=== PATIENT | female | born 1965 | race African-American/Black ===

== ENCOUNTER 2018-07-23 15:36 | Emergency (ER) | payer OTHER, BC ==
[~2018-07-23] VITALS: Ht 165.1 cm; Wt 108.9 kg
[2018-07-23] MEDS ORDERED: LOSA1TAB15 PO (16:04)
[2018-07-23] MEDS ORDERED: HYDR-3857 PO (16:04)
[2018-07-23] MEDS ORDERED: ESOM20SU PO (16:04)
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
[2018-07-23 17:42] VITALS: BP 168/90
--- OUTSIDE RECORDS SUMMARY | 2018-07-23 18:41 | XMS REPORT ---
Author Author DANNY PARMAR [facility] Address [address] [place] [address] Care Team Providers Care Senior Insight Manager Name Role Phone DANNY PARMAR Unavailable PROBLEMS Type Condition ICD9-CM Code [id number] Code Onset Dates Condition Status SNOMED Code Problem Essential hypertension I10 Active 53470103 Problem Sinusitis chronic, frontal J32.1 Active 85669757 Problem Dorsalgia, unspecified M54.9 Active 313261856 Problem Obesity (BMI 30-39.9) E66.9 Active 444000534 Problem Other chronic pain G89.29 Active 12842611 ALLERGIES No Information ENCOUNTERS Encounter Location Date Diagnosis [facility] [address] [id number] [place] [address] 28 May [facility] [address] [id number] [place] [address] 27 May [facility] [address] [id number] [place] [address] 14 May [facility] [address] [id number] [place] [address] Apr [facility] [address] [id number] [place] [address] Apr Essential hypertension I10 and Weight gain R63.5 [facility] [address] [id number] [place] [address] Apr Overuse syndrome T14.8XXA [facility] [address] [id number] [place] [address] Mar [facility] [address] [id number] [place] [address] Nov Acute non-recurrent maxillary sinusitis J01.00 [facility] [address] [id number] [place] [address] Sep [facility] [address] [id number] [place] [address] Sep Pain of right lower extremity M79.604 ; Obesity (BMI 30-39.9) E66.9 ; Other chronic pain G89.29 and Dorsalgia, unspecified M54.9 IMMUNIZATIONS No Known Immunizations SOCIAL HISTORY Never Assessed REASON FOR VISIT refill on losartan PLAN OF CARE VITAL SIGNS MEDICATIONS Medication Instructions Dosage Frequency Start Date End Date Duration Status Hyzaar 50-12.5 MG Orally Once a day 1 tablet 24h 30 days Active RESULTS No Results PROCEDURES No Known procedures INSTRUCTIONS MEDICATIONS ADMINISTERED No Known Medications MEDICAL (GENERAL) HISTORY Type Description Date Medical History hypertension Medical History Acid reflux Surgical History hysterectomy 2002 Surgical History back surgery 2003 Surgical History cholecystecomy 2003 Hospitalization History back surgeries Hospitalization History childbirth
--- OUTSIDE RECORDS SUMMARY | 2018-07-23 18:41 | XMS REPORT ---
Author Author DANNY PARMAR [facility] Address [address] [place] [address] Care Team Providers Care Pesticide Chemist Name Role Phone DANNY PARMAR Unavailable PROBLEMS Type Condition ICD9-CM Code VTQ60-CY Code Onset Dates Condition Status SNOMED Code Problem Essential hypertension I10 Active 17783879 Problem Sinusitis chronic, frontal J32.1 Active 69490803 Problem Dorsalgia, unspecified M54.9 Active 595484399 Problem Obesity (BMI 30-39.9) E66.9 Active 391042509 Problem Other chronic pain G89.29 Active 39120345 ALLERGIES No Information ENCOUNTERS Encounter Location Date Diagnosis [facility] [address] [id number] [place] [address] 28 May [facility] [address] [id number] [place] [address] 27 May [facility] [address] [id number] [place] [address] 14 May [facility] [address] [id number] [place] [address] Apr [facility] [address] [id number] [place] [address] Apr Essential hypertension I10 and Weight gain R63.5 [facility] [address] [id number] [place] [address] Apr Overuse syndrome T14.8XXA [facility] [address] [id number] [place] [address] Mar [facility] [address] [id number] [place] [address] Nov Acute non-recurrent maxillary sinusitis J01.00 [facility] [address] [id number] [place] [address] Sep [facility] [address] [id number] [place] [address] Sep Pain of right lower extremity M79.604 ; Obesity (BMI 30-39.9) E66.9 ; Other chronic pain G89.29 and Dorsalgia, unspecified M54.9 IMMUNIZATIONS No Known Immunizations SOCIAL HISTORY Never Assessed REASON FOR VISIT need medicine PLAN OF CARE VITAL SIGNS MEDICATIONS Medication [...]
--- OUTSIDE RECORDS SUMMARY | 2018-07-23 18:41 | XMS REPORT ---
Author Author [facility]ERTRUDE HADLEY [facility] Address [address] [place] [address] Care Team Providers Care Consultant Teacher Name Role Phone GERTRUDE HADLEY Unavailable PROBLEMS Type Condition ICD9-CM Code CON96-JN Code Onset Dates Condition Status SNOMED Code Problem Essential hypertension I10 Active 67390105 Problem Sinusitis chronic, frontal J32.1 Active 06922131 Problem Dorsalgia, unspecified M54.9 Active 846493998 Problem Obesity (BMI 30-39.9) E66.9 Active 330120031 Problem Other chronic pain G89.29 Active 75940552 ALLERGIES No Known Allergies ENCOUNTERS Encounter Location Date Diagnosis [facility] [address] [id number] [place] [address] May [facility] [address] [id number] [place] [address] Apr [facility] [address] [id number] [place] [address] Apr Essential hypertension I10 and Weight gain R63.5 [facility] [address] [id number] [place] [address] Apr Overuse syndrome T14.8XXA [facility] [address] [id number] [place] [address] Mar [facility] [address] [id number] [place] [address] Nov Acute non-recurrent maxillary sinusitis J01.00 [facility] [address] [id number] [place] [address] Sep [facility] [place] [address] [id number] [place] [address] Sep Pain of right lower extremity M79.604 ; Obesity (BMI 30-39.9) E66.9 ; Other chronic pain G89.29 and Dorsalgia, unspecified M54.9 IMMUNIZATIONS No Known Immunizations SOCIAL HISTORY Never Assessed REASON FOR VISIT Leg pain, Pt having Lt leg pain., Pt having pain Rt leg as well, with swelling. ERIKA Fournier, Pt rate pain 8. ERIKA Fournier PLAN OF CARE Activity Details Follow Up prn Reason: Pending Test CMP VITAL SIGNS Height 65 in 2018-05-12 Weight 223.4 lbs 2018-05-12 Temperature 98.1 degrees Fahrenheit 2018-05-12 Heart Rate 70 bpm 2018-05-12 Respiratory Rate 18 2018-05-12 Oximetry 97 % 2018-05-12 BMI 37.17 kg/m2 2018-05-12 Blood pressure systolic 124 mmHg 2018-05-12 Blood pressure diastolic 84 mmHg 2018-05-12 MEDICATIONS Medication Instructions Dosage Frequency Start Date End Date Duration Status Nexium 40 MG Orally Once a day 1 capsule 24h Active Diclofenac Sodium 75 MG Orally Twice a day 1 tablet with food or milk 12h 18 Apr, 2018 May, 30 day(s) Active Hyzaar 50-12.5 MG Orally Once a day 1 tablet 24h Active Hydrocodone-Acetaminophen 10-500 MG Orally PRN 1 tablet as needed Active RESULTS No Results PROCEDURES Procedure Date Ordered Result Body Site COMPREHEN METABOLIC PANEL May 12, 2018 INSTRUCTIONS MEDICATIONS ADMINISTERED No Known Medications MEDICAL (GENERAL) HISTORY Type Description Date Medical History hypertension Medical History Acid reflux Surgical History hysterectomy 2002 Surgical History back surgery 2003 Surgical History cholecystecomy 2004 Hospitalization History back surgeries Hospitalization History childbirth
--- OUTSIDE RECORDS SUMMARY | 2018-07-23 18:41 | XMS REPORT ---
Author Author [facility]ANNY PARMAR [facility] Address [address] [place] [address] Care Team Providers Care Fuel Cell Repairer Name Role Phone DANNY PARMAR Unavailable PROBLEMS Type Condition ICD9-CM Code VJT45-DC Code Onset Dates Condition Status SNOMED Code Problem Essential hypertension I10 Active 93288880 Problem Sinusitis chronic, frontal J32.1 Active 49926419 Problem Dorsalgia, unspecified M54.9 Active 749128271 Problem Obesity (BMI 30-39.9) E66.9 Active 949906026 Problem Other chronic pain G89.29 Active 72272641 ALLERGIES No Information ENCOUNTERS Encounter Location Date Diagnosis [employer] [address] [id number] [place] [address] 28 May [facility] [address] [id number] [place] [address] 27 May [facility] [address] [id number] [place] [address] 14 May [facility] [address] [id number] [place] [address] Apr [facility] [address] [id number] [place] [address] Apr Essential hypertension I10 and Weight gain R63.5 [facility] [address] [id number] [place] [address] Apr Overuse syndrome T14.8XXA [facility] [address] [id number] [place] [address] Mar [facility] [address] [id number] [place] [address] Nov Acute non-recurrent maxillary sinusitis J01.00 [facility] [address] [id number] [place] [address] Sep [facility] [address] [id number] [place] [address] Sep Pain of right lower extremity M79.604 ; Obesity (BMI 30-39.9) E66.9 ; Other chronic pain G89.29 and Dorsalgia, unspecified M54.9 IMMUNIZATIONS No Known Immunizations SOCIAL HISTORY Never Assessed REASON FOR VISIT refill request PLAN OF CARE VITAL SIGNS MEDICATIONS Unknown Medications RESULTS No Results PROCEDURES No Known procedures INSTRUCTIONS MEDICATIONS ADMINISTERED No Known Medications MEDICAL (GENERAL) HISTORY Type Description Date Medical History hypertension Medical History Acid reflux Surgical History hysterectomy 2002 Surgical History back surgery 2003 Surgical History cholecystecomy 2003 Hospitalization History back surgeries Hospitalization History childbirth
--- OUTSIDE RECORDS SUMMARY | 2018-07-23 18:41 | XMS REPORT | CCD ---
Author Author MAICOL GARCÍA Organization Unknown Address [address] [place] [id number] Care Team Providers Care Area Representative Name Role Phone SIRIA HENNESSY MD Vital Signs Vital Sign Value Unit Date/Time Recent/Initial? Weight Measured 230 lbs 02/11/2016 09:50 Initial VS Height 65 in 02/11/2016 09:50 Initial VS BMI (Body Mass Index) 38.27 kg/m^2 02/11/2016 09:50 Initial VS BSA (Body Surface Area) 2.19 m^2 02/11/2016 09:50 Initial VS Allergies Allergy Code Allergy Type Reaction Status CODEINE 2670 Drug allergy HIVES Active Procedures Procedure Code Procedure Type Date Colorectal cancer screening; colonoscopy on individual not meeting criteri G0121 CPT 02/12/2016 History of Immunizations Unknown or Not Available. Problems Unknown or Not Available. Results Unknown or Not Available. Active Medications No Active Medications Medications Administered During Visit Unknown or Not Available. Encounters Encounter Diagnosis Diagnosis Code Start Date Encounter for screening for malignant neoplasm of colon Z1211 Social History Smoking Status Code Start Date End Date Never smoker [id number] Patient Decision Aids Patient Decision Aid EGD AND/OR COLONOSCOPY; AFTER THE PROCEDURE Discharge Instructions You were admitted to [facility] on 02/12/2016 08:01 with a principal diagnosis of Encounter for screening for malignant neoplasm of colon You had the following procedures done: Colorectal cancer screening; colonoscopy on individual not meeting criteri You were discharged from [facility] on 02/12/2016 10:09 Should you have any questions prior to discharge, please contact a member of your healthcare team. If you have left the hospital and have any questions, please contact your primary care physician. Chief Complaint and Reason For Visit Chief Complaint Date of Onset COLONOSCOPY Function Status Unknown or Not Available. Plan of Care Unknown or Not Available. Referral/Transition of Care Unknown or Not Available.
--- OUTSIDE RECORDS SUMMARY | 2018-07-23 18:41 | XMS REPORT ---
Author Author DANNY PARMAR [facility] Address [address] [place] [address] Care Team Providers Care Supervisor Vendor Quality Name Role Phone DANNY PARMAR Unavailable PROBLEMS Type Condition ICD9-CM Code [id number] Code Onset Dates Condition Status SNOMED Code Problem Sinusitis chronic, frontal J32.1 Active 83339776 Problem Other chronic pain G89.29 Active 64815197 Problem Dorsalgia, unspecified M54.9 Active 501182112 Problem Obesity (BMI 30-39.9) E66.9 Active 627910965 ALLERGIES No Known Allergies ENCOUNTERS Encounter Location Date [facility] [id number] [place] [address] Mar [place] [address] [id number] [place] [address] Nov Acute non-recurrent maxillary sinusitis J01.00 [place] [address] [id number] [place] [address] Sep [facility] [address] [id number] [place] [address] Sep Pain of right lower extremity M79.604 ; Obesity (BMI 30-39.9) E66.9 ; Other chronic pain G89.29 and Dorsalgia, unspecified M54.9 IMMUNIZATIONS No Known Immunizations SOCIAL HISTORY Never Assessed REASON FOR VISIT Cough, Pt has a cough, face pain, Lt eye swollen, headache, Lt ear pain, ERIKA Fournier PLAN OF CARE Activity Details Follow Up prn Reason: VITAL SIGNS Height 65 in 2017-12-20 Weight 232.3 lbs 2017-12-20 Temperature 96.1 degrees Fahrenheit 2017-12-20 Heart Rate 80 bpm 2017-12-20 Respiratory Rate 18 2017-12-20 Oximetry 98 % 2017-12-20 BMI 38.65 kg/m2 2017-12-20 Blood pressure systolic 112 mmHg 2017-12-20 Blood pressure diastolic 76 mmHg 2017-12-20 MEDICATIONS Medication Instructions Dosage Frequency Start Date End Date Duration Status Promethazine-Codeine 6.25-10 MG/5ML Orally every 6 hrs 5 ml as needed 6h Nov, Dec, 05 days Active Nexium 40 MG Orally Once a day 1 capsule 24h Active PredniSONE 20 mg Orally Once a day 2 tablets 24h Nov, Dec, 05 days Active Augmentin 875-125 MG Orally every 12 hrs 1 tablet 12h Nov, Dec, 10 day(s) Active Hydrocodone-Acetaminophen 10-500 MG Orally PRN 1 tablet as needed Active Hyzaar 50-12.5 MG Orally Once a day 1 tablet 24h Active RESULTS No Results PROCEDURES No Known procedures INSTRUCTIONS MEDICATIONS ADMINISTERED No Known Medications MEDICAL (GENERAL) HISTORY Type Description Date Medical History hypertension Medical History Acid reflux Surgical History hysterectomy 2002 Surgical History back surgery 2003 Surgical History cholecystecomy 2003 Hospitalization History back surgeries Hospitalization History childbirth
--- OUTSIDE RECORDS SUMMARY | 2018-07-23 18:41 | XMS REPORT ---
Author Author BLANCA KIDD [facility] Address [address] [place] [address] Care Team Providers Care Court Advocate Name Role Phone MARTI BLACNA Unavailable PROBLEMS Type Condition ICD9-CM Code FRD67-EC Code Onset Dates Condition Status SNOMED Code Problem Sinusitis chronic, frontal J32.1 Active 33802133 Problem Other chronic pain G89.29 Active 69279522 Problem Dorsalgia, unspecified M54.9 Active 347764648 Problem Obesity (BMI 30-39.9) E66.9 Active 142585240 ALLERGIES No Known Allergies ENCOUNTERS Encounter Location Date [id number] [place] [address] Nov Acute non-recurrent maxillary sinusitis J01.00 [facility] [address] [id number] [place] [address] Sep [facility] [address] [id number] [place] [address] Sep Pain of right lower extremity M79.604 ; Obesity (BMI 30-39.9) E66.9 ; Other chronic pain G89.29 and Dorsalgia, unspecified M54.9 IMMUNIZATIONS No Known Immunizations SOCIAL HISTORY Never Assessed REASON FOR VISIT Leg pain behind R knee x 2 weeks w/ no known cause. liliana RN PLAN OF CARE Activity Details Follow Up prn Reason: VITAL SIGNS Height 65 in 2017-10-10 Weight 238.9 lbs 2017-10-10 Temperature 97.3 degrees Fahrenheit 2017-10-10 Heart Rate 68 bpm 2017-10-10 Respiratory Rate 18 2017-10-10 BMI 39.75 kg/m2 2017-10-10 Blood pressure systolic 118 mmHg 2017-10-10 Blood pressure diastolic 78 mmHg 2017-10-10 MEDICATIONS Medication Instructions Dosage Frequency Start Date End Date Duration Status Hydrocodone-Acetaminophen 10-500 MG Active Nexium 40 MG Orally Once a day 1 capsule 24h Active Hyzaar 50-12.5 MG Orally Once a day 1 tablet 24h Active RESULTS Name Result Date Reference Range Ultrasound : Lower Extremity PROCEDURES No Known procedures INSTRUCTIONS MEDICATIONS ADMINISTERED No Known Medications MEDICAL (GENERAL) HISTORY Type Description Date Medical History hypertension Medical History Acid reflux Surgical History hysterectomy 2002 Surgical History back surgery 2003 Surgical History cholecystecomy 2003 Hospitalization History back surgeries Hospitalization History childbirth
--- OUTSIDE RECORDS SUMMARY | 2018-07-23 18:41 | XMS REPORT ---
Author [facility] Address [address] [place] [address] Care Team Providers Care Senior Web Analyst Name Role Phone DANNY PARMAR Unavailable PROBLEMS Type Condition ICD9-CM Code NHP69-CU Code Onset Dates Condition Status SNOMED Code Problem Essential hypertension I10 Active 33254299 Problem Sinusitis chronic, frontal J32.1 Active 11976865 Problem Dorsalgia, unspecified M54.9 Active 479740869 Problem Obesity (BMI 30-39.9) E66.9 Active 285201347 Problem Other chronic pain G89.29 Active 87518864 ALLERGIES No Known Allergies ENCOUNTERS Encounter Location Date Diagnosis [employer] [address] [id number] [place] [address] May [facility] [address] [id number] [place] [address] [facility] [address] [id number] [place] [address] Apr [facility] [address] [id number] [place] [address] Apr Essential hypertension I10 and Weight gain R63.5 [facility] [address] [id number] [place] [address] Apr Overuse syndrome T14.8XXA [facility] [address] [id number] [place] [address] Mar [facility] [address] [id number] [place] [address] Nov Acute non-recurrent maxillary sinusitis J01.00 [facility] [address] [id number] [place] [address] Sep [facility] [address] [id number] [place] [address] Sep Pain of right lower extremity M79.604 ; Obesity (BMI 30-39.9) E66.9 ; Other chronic pain G89.29 and Dorsalgia, unspecified M54.9 IMMUNIZATIONS No Known Immunizations SOCIAL HISTORY Never Assessed REASON FOR VISIT Establish Care, Pt want to discuss weight loss, and possible physical. , AMADO complete. ERIKA Fournier PLAN OF CARE Activity Details Follow Up 4 Weeks Reason:f/u weight mgmt VITAL SIGNS Height 65 in 2018-05-15 Weight 235 lbs 2018-05-15 Temperature 97.8 degrees Fahrenheit 2018-05-15 Heart Rate 79 bpm 2018-05-15 Respiratory Rate 18 2018-05-15 Oximetry 98 % 2018-05-15 BMI 39.10 kg/m2 2018-05-15 Blood pressure systolic 124 mmHg 2018-05-15 Blood pressure diastolic 86 mmHg 2018-05-15 MEDICATIONS Medication Instructions Dosage Frequency Start Date End Date Duration Status Hyzaar 50-12.5 MG Orally Once a day 1 tablet 24h Active Diclofenac Sodium 75 MG Orally Twice a day 1 tablet with food or milk 12h 18 Apr, 2018 17 May, 2018 30 day(s) Active Nexium 40 MG Orally Once a day 1 capsule 24h Active RESULTS No Results PROCEDURES No Known procedures INSTRUCTIONS MEDICATIONS ADMINISTERED No Known Medications MEDICAL (GENERAL) HISTORY Type Description Date Medical History hypertension Medical History Acid reflux Surgical History hysterectomy 2002 Surgical History back surgery 2003 Surgical History cholecystecomy 2004 Hospitalization History back surgeries Hospitalization History childbirth
--- OUTSIDE RECORDS SUMMARY | 2018-07-23 18:41 | XMS REPORT ---
Author Author [facility] Address [address] [place] [address] Care Team Providers Care Clerical Supervisor Name Role Phone DANNY PARMAR Unavailable PROBLEMS Type Condition ICD9-CM Code COO49-[id number] Code Onset Dates Condition Status SNOMED Code Problem Essential hypertension I10 Active 02237079 Problem Sinusitis chronic, frontal J32.1 Active 80771929 Problem Dorsalgia, unspecified M54.9 Active 745108051 Problem Obesity (BMI 30-39.9) E66.9 Active 069059302 Problem Other chronic pain G89.29 Active 04764874 ALLERGIES No Information ENCOUNTERS Encounter Location Date Diagnosis [facility] [address] [id number] [place] [address] May [facility] [address] [id number] [place] [address] Apr [facility] [address] [id number] [place] [address] Apr Essential hypertension I10 and Weight gain R63.5 [facility] [address] [id number] [place] [address] Apr Overuse syndrome T14.8XXA [facility] [address] [id number] [place] [address] Mar [facility] [address] [id number] [place] [address] Nov Acute non-recurrent maxillary sinusitis J01.00 [facility] [address] [id number] [place] [address] Sep [facility] [address] [id number] [place] [address] Sep Pain of right lower extremity M79.604 ; Obesity (BMI 30-39.9) E66.9 ; Other chronic pain G89.29 and Dorsalgia, unspecified M54.9 IMMUNIZATIONS No Known Immunizations SOCIAL HISTORY Never Assessed REASON FOR VISIT Test results PLAN OF CARE VITAL SIGNS MEDICATIONS Unknown Medications RESULTS No Results PROCEDURES No Known procedures INSTRUCTIONS MEDICATIONS ADMINISTERED No Known Medications MEDICAL (GENERAL) HISTORY Type Description Date Medical History hypertension Medical History Acid reflux Surgical History hysterectomy 2002 Surgical History back surgery 2003 Surgical History cholecystecomy 2003 Hospitalization History back surgeries Hospitalization History childbirth
--- OUTSIDE RECORDS SUMMARY | 2018-07-23 18:41 | XMS REPORT ---
Author [facility] Address [address] [place] [address] Care Team Providers Care Geoduck Diver Name Role Phone DANNY PARMAR Unavailable PROBLEMS Type Condition ICD9-CM Code FTN65-CA Code Onset Dates Condition Status SNOMED Code Problem Essential hypertension I10 Active 18303013 Problem Sinusitis chronic, frontal J32.1 Active 89730893 Problem Dorsalgia, unspecified M54.9 Active 617976875 Problem Obesity (BMI 30-39.9) E66.9 Active 789906408 Problem Other chronic pain G89.29 Active 18153381 ALLERGIES No Information ENCOUNTERS Encounter Location Date Diagnosis [employer] [address] [id number] [place] [address] Apr [facility] [address] [id number] [place] [address] Apr Essential hypertension I10 and Weight gain R63.5 [facility] [address] [id number] [place] [address] Apr Overuse syndrome T14.8XXA [facility] [address] [id number] [place] [address] Mar [facility] [address] [id number] [place] [address] Nov Acute non-recurrent maxillary sinusitis J01.00 [facility] [address] [id number] [place] [address] Sep [facility] [employer] [address] [id number] [place] [address] Sep Pain of right lower extremity M79.604 ; Obesity (BMI 30-39.9) E66.9 ; Other chronic pain G89.29 and Dorsalgia, unspecified M54.9 IMMUNIZATIONS No Known Immunizations SOCIAL HISTORY Never Assessed REASON FOR VISIT Phone Triage PLAN OF CARE VITAL SIGNS MEDICATIONS Unknown Medications RESULTS No Results PROCEDURES No Known procedures INSTRUCTIONS MEDICATIONS ADMINISTERED No Known Medications MEDICAL (GENERAL) HISTORY Type Description Date Medical History hypertension Medical History Acid reflux Surgical History hysterectomy 2002 Surgical History back surgery 2003 Surgical History cholecystecomy 2003 Hospitalization History back surgeries Hospitalization History childbirth
--- OUTSIDE RECORDS SUMMARY | 2018-07-23 18:43 | XMS REPORT ---
Author Author Adriana Harris [facility] Address [address] [place] [id number] Care Team Providers Care Claim Analyst Name Role Phone Adriana Harris PCP Unavailable Allergies and Adverse Reactions Name Reaction Notes lisinopril cough Plan of Treatment Planned Activity Comments Planned Date Planned Time Plan/Goal COMPLETE CBC W/AUTO DIFF WBC 01/07/2016 12:00 AM COMPREHEN METABOLIC PANEL 12/06/2012 12:00 AM LIPID PANEL 12/06/2012 12:00 AM GLYCOSYLATED HEMOGLOBIN TEST 12/06/2012 12:00 AM COMPLETE CBC W/AUTO DIFF WBC 12/06/2012 12:00 AM COMPREHEN METABOLIC PANEL 10/14/2014 12:00 AM LIPID PANEL 10/14/2014 12:00 AM Medications Active Name Start Date Estimated Completion Date SIG Comments Nexium 40 mg oral capsule,delayed release(DR/EC) 01/05/2015 take 1 capsule (40 mg) by oral route 2 times per day cyclobenzaprine 10 mg oral tablet 01/05/2015 Take one tablet at bedtime as needed diclofenac sodium 75 mg oral tablet,delayed release (DR/EC) 01/05/2015 take 1 tablet (75 mg) by oral route 2 times per day Benicar HCT 20-12.5 mg oral tablet 12/14/2015 TAKE 1 TABLET BY MOUTH EVERY DAY Lipitor 20 mg oral tablet 01/11/2016 take 1 tablet (20 mg) by oral route once daily at bedtime Contrave 8-90 mg oral tablet extended release 01/27/2016 04/26/2016 take 2 tablets by oral route 2 times per day in the morning and evening for 30 days esomeprazole magnesium 40 mg oral capsule,delayed release(DR/EC) 02/08/2016 TAKE 1 CAPSULE BY MOUTH TWICE DAILY Lipitor 20 mg oral tablet 02/17/2016 TAKE 1 TABLET (20 MG) BY ORAL ROUTE ONCE DAILY AT BEDTIME hydrocodone-acetaminophen 5-325 mg oral tablet 03/10/2016 take 1 tablet by oral route every 6 hours as needed for pain Hyzaar 50-12.5 mg oral tablet 04/12/2016 06/11/2016 take 1 tablet by oral route once daily for 30 days hydrochlorothiazide 12.5 mg oral tablet 04/13/2016 04/18/2016 take 1 tablet ( 12.5 mg) by oral route once daily for 5 days Name Start Date Expiration Date SIG Comments albuterol sulfate 90 mcg/actuation inhalation HFA aerosol inhaler 08/13/2009 inhale 1 - 2 puffs by inhalation route every 4 hours as needed Zithromax Z-Phillip 250 mg oral tablet 11/10/2009 11/15/2009 take 2 tablets (500 mg) by oral route once daily for 1 day then 1 tablet (250 mg) by oral route once daily for 4 days phentermine 37.5 mg oral tablet 11/10/2009 12/10/2009 take 1 tablet (37.5 mg/ day) by oral route once daily before breakfast for 30 days amoxicillin 500 mg oral capsule 01/01/2010 01/11/2010 take 1 capsule (500 mg) by oral route every 12 hours for 10 days Bactrim DS 800-160 mg oral tablet 01/07/2010 01/14/2010 take 1 tablet by oral route 2 times per day for 7 days Augmentin 500-125 mg oral tablet 02/11/2010 02/18/2010 take 1 tablet by oral route every 12 hours for 7 days aspirin 81 mg oral tablet take 1 tablet (81 mg) by oral route once daily fluticasone 50 mcg/actuation nasal spray,suspension 04/26/2010 inhale 2 sprays in each nostril by intranasal route once daily fluticasone 50 mcg/actuation nasal spray,suspension 04/26/2010 inhale 2 sprays in each nostril by intranasal route once daily amoxicillin 875 mg oral tablet 01/13/2011 01/23/2011 take 1 tablet (875 mg) by oral route every 12 hours for 10 days simvastatin 40 mg oral tablet 06/10/2011 09/08/2011 take 1 tablet (40 mg) by oral route once daily in the evening for 30 days muscle pains norethindrone acetate 5 mg oral tablet 06/10/2011 09/08/2011 take 1 tablet daily Ambien 10 mg oral tablet 08/01/2011 08/31/2011 take 1 tablet (10 mg) by oral route once daily at bedtime for 30 days cyclobenzaprine 10 mg oral tablet 11/14/2011 11/24/2011 TAKE 1 TABLET BY MOUTH THREE TIMES DAILY NEEDED phentermine 37.5 mg oral tablet 12/02/2011 01/01/2012 take 1 tablet (37.5 mg) by oral route once daily before breakfast for 30 days ibuprofen 800 mg oral tablet 01/09/2012 02/08/2012 TAKE ONE TABLET BY MOUTH THREE TIMES DAILY WITH FOOD Nexium 40 mg oral capsule,delayed release(DR/EC) 01/16/2012 02/15/2012 TAKE ONE CAPSULE BY MOUTH EVERY NIGHT AT BEDTIME zolpidem 10 mg oral tablet 03/20/2012 04/19/2012 TAKE ONE TABLET BY MOUTH EVERY NIGHT AT BEDTIME FOR 30 DAYS Norvasc 5 mg oral tablet 04/24/2012 06/23/2012 take 1 tablet (5 mg) by oral route once daily for 30 days phentermine 37.5 mg oral capsule 12/06/2012 01/05/2013 take 1 capsule (37.5 mg ) by oral route once daily before breakfast for 30 days Qsymia 3.75-23 mg oral capsule, ER multiphase 24 hr 03/05/2013 04/04/2013 take 1 capsule by oral route once daily in the morning for 14 days diclofenac sodium 75 mg oral tablet,delayed release (DR/EC) 03/05/20132012 take 1 tablet (75 mg) by oral route 2 times per day for 30 days Percocet 10-325 mg oral tablet 03/05/2013 take 0.5-1 tablet by oral route every 8 hours as needed pravastatin 40 mg oral tablet 03/05/2013 06/03/2013 take 1 tablet (40 mg) by oral route once daily at bedtime potassium chloride 20 mEq oral tablet,ER particles/crystals 09/03/20132013 take 1 tablet (20 meq) by oral route once daily with food for 30 days pravastatin 20 mg oral tablet 12/03/2013 03/03/2014 take 1 tablet (20 mg) by oral route once daily at bedtime for 30 days cyclobenzaprine 10 mg oral tablet 04/16/2014 take 1 tablet daily at HS as needed Benicar HCT 20-12.5 mg oral tablet 01/05/2015 07/04/2015 take 1 tablet by oral route once daily for 30 days Lexapro 10 mg oral tablet 01/05/2015 02/04/2015 take 1 tablet (10 mg) by oral route once daily for 30 days Cipro 500 mg oral tablet 03/10/2016 03/17/2016 take 1 tablet (500 mg) by oral route every 12 hours for 7 days Augmentin 875-125 mg oral tablet 03/30/2016 04/06/2016 take 1 tablet by oral route every 12 hours for 7 days Discontinued Name Start Date Discontinued Date SIG Comments hydrochlorothiazide 25 mg oral tablet 11/10/2009 take 1 tablet (25 mg) by oral route once daily for 30 days pt. not taking Wellbutrin XL 150 mg oral tablet extended release 24 hr 06/09/2011 take 1 tablet (150 mg) by oral route once daily Depo-Estradiol 5 mg/mL intramuscular oil 06/09/2011 inject 1 milliliter (5 mg) by intramuscular route every 4 weeks loratadine 10 mg oral tablet 08/13/2009 11/10/2009 take 1 tablet (10 mg) by oral route once daily no longer taking Norflex 100 mg oral tablet extended release 11/10/2009 01/07/2010 take 1 tablet (100 mg) by oral route 2 times per day as needed morning and evening meloxicam 15 mg oral tablet 11/10/2009 01/07/2010 take 1 tablet (15 mg) by oral route once daily with food simvastatin 10 mg oral tablet 11/23/2009 01/07/2010 take 1 tablet (10 mg) by oral route once daily in the evening for 30 days Benicar 40 mg oral tablet 01/05/2010 01/07/2010 TAKE 1 TABLET BY MOUTH ONCE DAILY Medication replaced metformin 500 mg oral tablet 01/07/2010 06/09/2011 take 1 tablet (500 mg) by oral route 2 times per day with morning and evening meals for 30 days Gomez 5-40 mg oral tablet 02/11/2010 04/26/2010 take 1 tablet by oral route once daily for 30 days Lower extremity edema simvastatin 40 mg oral tablet 06/09/2011 take 1 tablet (40 mg) by oral route once daily in the evening loratadine 10 mg oral tablet 04/26/2010 01/10/2012 take 1 tablet (10 mg) by oral route once daily furosemide 20 mg oral tablet 05/20/2010 01/10/2012 take 1 tablet (20 mg) by oral route once daily as needed hydrocodone-acetaminophen 10-500 mg oral tablet 11/01/2010 01/10/2012 take 1 tablet by oral route every 4 hours as needed Diovan 320 mg oral tablet 01/01/2011 01/13/2011 TAKE ONE TABLET BY MOUTH DAILY promethazine 25 mg oral tablet 01/26/2011 06/09/2011 take 1 tablet (25 mg) by oral route every 6 hours as needed Amitiza 24 mcg oral capsule 06/09/2011 01/10/2012 take 1 capsule (24 mcg) by oral route 2 times per day with food and water Rozerem 8 mg oral tablet 06/09/2011 06/21/2011 take 1 tablet (8 mg) by oral route once daily at bedtime Miralax 17 gram/dose oral powder 06/20/2011 04/24/2012 take 17 gram mixed with 8 oz. water, juice, soda, coffee or tea by oral route once daily at HS lisinopril 40 mg oral tablet 11/11/2011 08/22/2012 TAKE 1 TABLET BY MOUTH EVERY DAY promethazine-codeine 6.25-10 mg/5 mL oral syrup 12/02/2011 04/24/2012 take 5 milliliters by oral route every 4-6 hours as needed, not to exceed 30 mL in 24 hours Tamiflu 75 mg oral capsule 01/10/2012 take 1 capsule (75 mg) by oral route 2 times per day for 5 days Wellbutrin SR 150 mg oral tablet extended release 05/07/2012 09/01/2013 take 1 tablet (150 mg) by oral route 2 times per day Ambien CR 12.5 mg oral tablet,ext release multiphase 04/16/2014 07/23/2014 take 1 tablet (12.5 mg) by oral route once daily at bedtime phentermine 37.5 mg oral tablet 07/23/2014 01/05/2015 take 1 tablet (37.5 mg ) by oral route once daily before breakfast for 30 days Xanax 0.25 mg oral tablet 07/23/2014 01/05/2015 take 1 tablet (0.25 mg) by oral route at bedtime as needed meloxicam oral 01/05/2015 oxycodone-acetaminophen 5-325 mg oral tablet 01/05/2015 06/29/2015 take 1 tablet by oral route every 6 hours as needed Medrol (Phillip) 4 mg oral tablets,dose pack 01/05/2015 01/05/2015 take as directed hydrocodone-acetaminophen 5-325 mg oral tablet 02/03/2015 06/29/2015 take 1 tablet by oral route every 6 hours as needed for pain Miralax 17 gram/dose oral powder 01/07/2016 take 17 gram mixed with 8 oz. water, juice, soda, coffee or tea by oral route once daily Benicar HCT 20-12.5 mg oral tablet 01/26/2016 04/12/2016 TAKE 1 TABLET BY MOUTH EVERY DAY Diflucan 150 mg oral tablet 03/31/2016 04/12/2016 take 1 tablet (150 mg) by oral route once Problem List Description Status Onset Diabetes Mellitus, Type II Active Hypertension Active Depressive Disorder Active Back Pain Active 04/16/2014 Insomnia Active 04/16/2014 Reflux Active 04/16/2014 Other constipation Active 01/07/2016 Vital Signs Date Time BP-Sys(mm[Hg] BP-Karolyn(mm[Hg]) HR(bpm) RR(rpm) Temp WT HT HC BMI BSA BMI Percentile O2 Sat(%) 04/12/2016 3:21:00 PM 132 mmHg 76 mmHg 62 bpm 18 rpm 98.2 F 253.125 lbs 65 in 42.12 kg/m2 2.29 m2 99 % 03/29/2016 2:27:00 PM 136 mmHg 74 mmHg 55 bpm 18 rpm 98.1 F 248.125 lbs 65 in 41.2897 kg/m 2.2719 m 97 % 03/10/2016 11:26:00 AM 108 mmHg 58 mmHg 72 bpm 20 rpm 97.9 F 142.5 lbs 65 in 23.71 kg/m2 1.72 m2 01/27/2016 2:52:00 PM 150 mmHg 86 mmHg 76 bpm 20 rpm 97.2 F 248 lbs 65 in 41.2689 kg/m 2.2713 m 96 % 01/27/2016 9:01:00 AM 122 mmHg 77 mmHg 52 bpm 18 rpm 98.2 F 248 lbs 65 in 41.27 kg/m2 2.27 m2 99 % 01/07/2016 4:06:00 PM 120 mmHg 86 mmHg 76 bpm 16 rpm 98 F 240.062 lbs 65 in 39.9481 kg/m 2.2347 m 97 % 06/29/2015 3:09:00 PM 136 mmHg 74 mmHg 82 bpm 18 rpm 97.1 F 233.25 lbs 65 in 38.81 kg/m2 2.20 m2 98 % 02/03/2015 1:48:00 PM 122 mmHg 78 mmHg 65 bpm 18 rpm 98 F 231.125 lbs 65 in 38.4608 kg/m 2.1927 m 96 % 01/05/2015 3:34:00 PM 128 mmHg 90 mmHg 66 bpm 18 rpm 226 lbs 65 in 37.61 kg/m2 2.17 m2 07/23/2014 9:04:00 AM 110 mmHg 80 mmHg 51 bpm 20 rpm 97.2 F 226.6 lbs 65 in 37.7078 kg/m 2.1711 m 99 % 04/16/2014 2:00:00 PM 130 mmHg 90 mmHg 71 bpm 18 rpm 97.3 F 222 lbs 65 in 36.94 kg/m2 2.15 m2 97 % 11/15/2013 6:21:00 PM 130 mmHg 80 mmHg 68 bpm 16 rpm 98.2 F 235 lbs 65 in 39.1056 kg/m 2.211 m 99 % 08/28/2013 3:09:00 PM 148 mmHg 102 mmHg 60 bpm 16 rpm 97.4 F 237 lbs 100 % 03/05/2013 9:27:00 AM 140 mmHg 82 mmHg 93 bpm 16 rpm 97.3 F 282.5 lbs 96 % 12/06/2012 2:31:00 PM 120 mmHg 84 mmHg 90 bpm 18 rpm 97.3 F 276.25 lbs 96 % 08/22/2012 11:04:00 AM 122 mmHg 92 mmHg 66 bpm 16 rpm 97.7 F 264.25 lbs 97 % 05/07/2012 3:06:00 PM 120 mmHg 84 mmHg 103 bpm 16 rpm 98.2 F 272.375 lbs 96 % 04/24/2012 11:37:00 AM 142 mmHg 88 mmHg 68 bpm 20 rpm 98.9 F 272.25 lbs 65 in 45.3043 kg/m 2.3798 m 01/10/2012 8:52:00 AM 130 mmHg 100 mmHg 93 bpm 16 rpm 97.8 F 265.25 lbs 97 % 12/02/2011 9:59:00 AM 138 mmHg 80 mmHg 64 bpm 18 rpm 99.7 F 269.375 lbs 65 in 44.8259 kg/m 2.3672 m 10/04/2011 11:16:00 AM 130 mmHg 90 mmHg 100 bpm 16 rpm 98 F 99 % 09/27/2011 11:18:00 AM 130 mmHg 84 mmHg 91 bpm 16 rpm 98 F 96 % 09/20/2011 10:55:00 AM 124 mmHg 82 mmHg 82 bpm 16 rpm 97.6 F 96 % 09/15/2011 1:36:00 PM 144 mmHg 90 mmHg 77 bpm 16 rpm 258.5 lbs 97 % 06/09/2011 10:00:00 AM 122 mmHg 76 mmHg 76 bpm 20 rpm 97.5 F 275.25 lbs 65 in 45.80 kg/m2 2.39 m2 01/26/2011 3:23:00 PM 142 mmHg 100 mmHg 77 bpm 16 rpm 97.5 F 272 lbs 95 % 01/25/2011 8:16:00 AM 142 mmHg 100 mmHg 01/13/2011 8:45:00 AM 156 mmHg 92 mmHg 74 bpm 20 rpm 97.7 F 268 lbs 98 % 04/26/2010 9:36:00 AM 132 mmHg 76 mmHg 54 bpm 20 rpm 97.6 F 273 lbs 01/28/2010 2:58:00 PM 132 mmHg 76 mmHg 72 bpm 18 rpm 97.8 F 276 lbs 01/07/2010 2:21:00 PM 160 mmHg 100 mmHg 88 bpm 20 rpm 97 F 273 lbs 01/01/2010 3:38:00 PM 152 mmHg 100 mmHg 64 bpm 20 rpm 97.3 F 275 lbs 11/10/2009 10:30:00 AM 134 mmHg 78 mmHg 66 bpm 18 rpm 97.6 F 275 lbs 08/13/2009 8:37:00 AM 112 mmHg 80 mmHg 84 bpm 18 rpm 97.8 F 270 lbs 65 in 44.9299 kg/m 2.3699 m Social History Name Description Comments Tobacco Never smoker 03/29/2016 - Children Graduated High School Attended some college Has never smoked Has never used alcohol Active but no formal exercise Health care History of Procedures Date Ordered Description Order Status 06/29/2015 12:00 AM X-RAY EXAM OF ABDOMEN Returned 06/09/2011 12:00 AM COMPLETE CBC W/AUTO DIFF WBC Reviewed 06/09/2011 12:00 AM COMPREHEN METABOLIC PANEL Reviewed 06/09/2011 12:00 AM LIPID PANEL Reviewed 06/09/2011 12:00 AM GLYCOSYLATED HEMOGLOBIN TEST Reviewed 06/09/2011 12:00 AM ASSAY THYROID STIM HORMONE Reviewed 06/09/2011 12:00 AM ASSAY OF MAGNESIUM Reviewed 11/10/2009 12:00 AM METABOLIC PANEL TOTAL CA Reviewed 11/10/2009 12:00 AM LIPID PANEL Reviewed 01/08/2016 11:10 AM URINALYSIS AUTO W/O SCOPE Reviewed 01/07/2016 12:00 AM COMPREHEN METABOLIC PANEL Returned 01/07/2016 12:00 AM LIPID PANEL Returned 01/07/2016 12:00 AM GLYCOSYLATED HEMOGLOBIN TEST Returned 01/07/2016 12:00 AM ASSAY THYROID STIM HORMONE Returned 01/27/2016 12:00 AM SPECIMEN HANDLING OFFICE-LAB Reviewed 01/27/2016 12:00 AM CYTOPATH C/V THIN LAYER Returned 01/27/2016 12:00 AM MAMMOGRAM BOTH BREASTS Returned 03/10/2016 11:43 AM URINALYSIS AUTO W/O SCOPE Reviewed 03/10/2016 12:00 AM COMPLETE CBC W/AUTO DIFF WBC Returned 03/10/2016 12:00 AM COMPREHEN METABOLIC PANEL Returned 03/10/2016 12:00 AM URINALYSIS AUTO W/SCOPE Returned 03/21/2016 12:[address] ABD & PELV W/CONTRAST Returned 03/23/2016 12:00 AM URNLS DIP STICK/TABLET REAGENT AUTO MICROSCOPY Returned 03/29/2016 2:58 PM URINALYSIS AUTO W/O SCOPE Reviewed 03/29/2016 12:00 AM METABOLIC PANEL TOTAL CA Returned 03/29/2016 12:00 AM URINE CULTURE/COLONY COUNT Returned 04/12/2016 12:00 AM EXTREMITY STUDY Returned 12/02/2011 12:00 AM INFLUENZA A/B AG EIA Returned 01/10/2012 12:00 AM COMPREHEN METABOLIC PANEL Returned 01/10/2012 12:00 AM LIPID PANEL Returned 01/10/2012 12:00 AM GLYCOSYLATED HEMOGLOBIN TEST Returned 01/10/2012 12:00 AM COMPLETE CBC W/AUTO DIFF WBC Returned 01/10/2012 12:00 AM HEPATIC FUNCTION PANEL Reviewed 01/10/2012 12:00 AM ASSAY OF LIPASE Returned 05/07/2012 12:00 AM COMPREHEN METABOLIC PANEL Reviewed 05/07/2012 12:00 AM LIPID PANEL Reviewed 05/07/2012 12:00 AM GLYCOSYLATED HEMOGLOBIN TEST Reviewed 05/07/2012 12:00 AM ASSAY THYROID STIM HORMONE Reviewed 05/07/2012 12:00 AM COMPLETE CBC W/AUTO DIFF WBC Reviewed 05/07/2012 12:00 AM RBC SED RATE AUTOMATED Reviewed 08/22/2012 12:00 AM COMPREHEN METABOLIC PANEL Returned 08/22/2012 12:00 AM LIPID PANEL Returned 08/22/2012 12:00 AM GLYCOSYLATED HEMOGLOBIN TEST Returned 08/22/2012 12:00 AM COMPLETE CBC W/AUTO DIFF WBC Returned 03/05/2013 12:00 AM COMPREHEN METABOLIC PANEL Returned 03/05/2013 12:00 AM LIPID PANEL Returned 03/05/2013 12:00 AM GLYCOSYLATED HEMOGLOBIN TEST Returned 03/05/2013 12:00 AM COMPLETE CBC W/AUTO DIFF WBC Returned 08/28/2013 12:00 AM COMPREHEN METABOLIC PANEL Returned 08/28/2013 12:00 AM LIPID PANEL Returned 08/28/2013 12:00 AM GLYCOSYLATED HEMOGLOBIN TEST Returned 08/28/2013 12:00 AM ASSAY THYROID STIM HORMONE Returned 08/28/2013 12:00 AM COMPLETE CBC W/AUTO DIFF WBC Returned 08/28/2013 12:00 AM VITAMIN B-12 Returned 11/15/2013 12:00 AM ASSAY THYROID STIM HORMONE Returned 11/15/2013 12:00 AM ASSAY OF TOTAL THYROXINE Returned 11/15/2013 12:00 AM ASSAY TRIIODOTHYRONINE (T3) Returned 11/15/2013 12:00 AM ASSAY OF FREE THYROXINE Returned 11/19/2013 12:00 AM US EXAM OF HEAD AND NECK Returned 04/16/2014 12:00 AM COMPLETE CBC W/AUTO DIFF WBC Returned 04/16/2014 12:00 AM COMPREHEN METABOLIC PANEL Returned 07/23/2014 12:00 AM COMPLETE CBC W/AUTO DIFF WBC Returned 07/23/2014 12:00 AM COMPREHEN METABOLIC PANEL Returned 07/23/2014 12:00 AM LIPID PANEL Returned 07/23/2014 12:00 AM GLYCOSYLATED HEMOGLOBIN TEST Returned 07/23/2014 12:00 AM VITAMIN B-12 Returned 01/27/2011 12:00 AM URINALYSIS AUTO W/O SCOPE Reviewed 02/03/2015 3:09 PM URINALYSIS AUTO W/O SCOPE Reviewed 02/03/2015 12:00 AM X-RAY EXAM OF ABDOMEN Returned Results Summary Data and Description Results 11/10/2009 11:07 AM LDL (CALC) 166.0 mg/dLCHOLESTEROL 234 mg/dLTRIGLYCERIDES 94.0 mg/dLHDL 49.0 mg/dLGLUCOSE 86 SODIUM 144.0 mmol/LPOTASSIUM 3.90 mmol/ LCHLORIDE 105.0 mmol/LCO2 27.0 mmol/LBUN 10.0 mg/dLCREATININE 1.20 mg/dLCALCIUM 9.40 mg/dLeGFR 49 12/04/2009 12:00 AM Dialated Eye Exam- Diabetic Done 01/07/2010 12:00 AM Mammogram -Women over 40 Declined Pap Smear Not indicated Foot Exam-Diabetic Declined 01/26/2011 5:49 PM COLOR YELLOW APPEARANCE HAZY SPEC GRAV >=1.030 pH 6.0 PROTEIN NEGATIVE GLUCOSE NEGATIVE KETONE NEGATIVE BILIRUBIN NEGATIVE BLOOD TRACE -INTACT NITRITE NEGATIVE LEUK SCREEN NEGATIVE CASTS/LPF NEGATIVE CRYSTALS NEGATIVE MUCOUS THRDS NEGATIVE BACTERIA FEW EPITH CELLS NEGATIVE TRICHOMONAS NEGATIVE YEAST NEGATIVE 06/09/2011 10:42 AM WBC 8.6 RBC 4.66 HGB 14.0 g/dLHCT 41.40 %MCV 89.0 fLMCH 30.0 pgMCHC 33.80 g/dLRDW CV 13.40 %MPV 9.80 fLPLT 274 %NEUT 40.0 %%LYMP 50.30 % %MONO 7.40 %%EOS 2.10 %%BASO 0.20 %#NEUT 3.43 #LYMP 4.33 #MONO 0.64 #EOS 0.18 # BASO 0.02 GLUCOSE 108.0 mg/dLSODIUM 141.0 mmol/LPOTASSIUM 3.40 mmol/LCHLORIDE 105.0 mmol/LCO2 23.0 mmol/LBUN 14.0 mg/dLCREATININE 1.40 mg/dLSGOT/AST 21.0 IU/ LSGPT/ALT 26.0 IU/LALK PHOS 78.0 IU/LTOTAL PROTEIN 7.20 g/dLALBUMIN 4.10 g/ dLTOTAL BILI 0.60 mg/dLCALCIUM 9.80 mg/dLeGFR 40 MAGNESIUM 2.50 mg/ dLTRIGLYCERIDES 131.0 mg/dLCHOLESTEROL 234.0 mg/dLHDL 48.0 mg/dLLDL (CALC) 160.0 mg/dLGLYCOHEMOGLOBIN A1C 6.10 %TSH 2.30 uIU/mL 12/02/2011 10:37 AM INFLUENZA A & B INFLUENZA A POSITIVE 01/10/2012 9:24 AM WBC 9.3 RBC 4.43 HGB 13.20 g/dLHCT 39.40 %MCV 89.0 fLMCH 29.80 pgMCHC 33.50 g/dLRDW CV 13.50 %MPV 9.30 fLPLT 252 %NEUT 66.50 %%LYMP 23.80 %%MONO 6.60 %%EOS 3.0 %%BASO 0.10 %#NEUT 6.18 #LYMP 2.21 #MONO 0.61 #EOS 0.28 #BASO 0.01 LIPASE 19.0 U/LGLUCOSE 111.0 mg/dLSODIUM 141.0 mmol/LPOTASSIUM 3.60 mmol/LCHLORIDE 106.0 mmol/LCO2 25.0 mmol/LBUN 8.0 mg/dLCREATININE 1.30 mg/ dLSGOT/AST 13.0 IU/LSGPT/ALT 19.0 IU/LALK PHOS 59.0 IU/LTOTAL PROTEIN 6.90 g/ dLALBUMIN 4.30 g/dLTOTAL BILI 0.30 mg/dLCALCIUM 9.20 mg/dLeGFR 44 TRIGLYCERIDES 93.0 mg/dLCHOLESTEROL 193.0 mg/dLHDL 35.0 mg/dLLDL (CALC) 139.0 mg/dLDIRECT BILI 0.20 mg/dLGLYCOHEMOGLOBIN A1C 5.70 % 09/14/2012 10:05 AM WBC 5.7 RBC 4.40 HGB 13.10 g/dLHCT 40.20 %MCV 91.0 fLH 29.80 pgMCHC 32.60 g/dLRDW CV 12.80 %MPV 9.30 fLPLT 270 %NEUT 39.70 %%LYMP 48.70 %%MONO 8.60 %%EOS 2.60 %%BASO 0.40 %#NEUT 2.25 #LYMP 2.76 #MONO 0.49 #EOS 0.15 #BASO 0.02 TRIGLYCERIDES 90.0 mg/dLCHOLESTEROL 229.0 mg/dLHDL 45.0 mg/ dLLDL (CALC) 166.0 mg/dLGLUCOSE 100.0 mg/dLSODIUM 141.0 mmol/LPOTASSIUM 3.60 mmol/LCHLORIDE 107.0 mmol/LCO2 25.0 mmol/LBUN 10.0 mg/dLCREATININE 1.30 mg/ dLSGOT/AST 20.0 IU/LSGPT/ALT 36.0 IU/LALK PHOS 60.0 IU/LTOTAL PROTEIN 6.90 g/ dLALBUMIN 4.0 g/dLTOTAL BILI 0.40 mg/dLCALCIUM 9.30 mg/dLeGFR 44 GLYCOHEMOGLOBIN A1C 5.90 % 03/05/2013 10:17 AM WBC 8.1 RBC 4.40 HGB 13.10 g/dLHCT 39.70 %MCV 90.0 fLMCH 29.80 pgMCHC 33.0 g/dLRDW CV 13.10 %MPV 9.60 fLPLT 300 %NEUT 44.10 %%LYMP 47.40 %%MONO 6.10 %%EOS 2.20 %%BASO 0.20 %#NEUT 3.55 #LYMP 3.82 #MONO 0.49 #EOS 0.18 # BASO 0.02 GLUCOSE 119.0 mg/dLSODIUM 143.0 mmol/LPOTASSIUM 3.40 mmol/LCHLORIDE 106.0 mmol/LCO2 25.0 mmol/LBUN 12.0 mg/dLCREATININE 1.40 mg/dLSGOT/AST 23.0 IU/ LSGPT/ALT 37.0 IU/LALK PHOS 73.0 IU/LTOTAL PROTEIN 6.80 g/dLALBUMIN 4.0 g/ dLTOTAL BILI 0.60 mg/dLCALCIUM 9.60 mg/dLeGFR 40 TRIGLYCERIDES 142.0 mg/ dLCHOLESTEROL 253.0 mg/dLHDL 41.0 mg/dLLDL (CALC) 184.0 mg/dLGLYCOHEMOGLOBIN A1C 6.80 % 08/28/2013 5:07 PM COLOR YELLOW APPEARANCE CLEAR SPEC GRAV 1.015 pH 7.0 PROTEIN NEGATIVE GLUCOSE NEGATIVE KETONE NEGATIVE BILIRUBIN NEGATIVE BLOOD TRACE -INTACT NITRITE NEGATIVE LEUK SCREEN NEGATIVE CASTS/LPF NEGATIVE CRYSTALS NEGATIVE MUCOUS THRDS NEGATIVE BACTERIA FEW EPITH CELLS 2++ SQUAMOUS TRICHOMONAS NEGATIVE YEAST NEGATIVE 09/02/2013 10:15 AM WBC 6.8 RBC 4.97 HGB 14.40 g/dLHCT 43.90 %MCV 88.0 fLMCH 29.0 pgMCHC 32.80 g/dLRDW CV 13.20 %MPV 10.0 fLPLT 251 %NEUT 40.50 %%LYMP 47.70 %%MONO 9.40 %%EOS 2.10 %%BASO 0.30 %#NEUT 2.77 #LYMP 3.25 #MONO 0.64 #EOS 0.14 # BASO 0.02 VITAMIN B12 >2000 PG/MLTSH 1.160 uIU/mLGLUCOSE 98.0 mg/dLSODIUM 143.0 mmol/LPOTASSIUM 3.20 mmol/LCHLORIDE 104.0 mmol/LCO2 29.0 mmol/LBUN 8.0 mg/ dLCREATININE 1.20 mg/dLSGOT/AST 18.0 IU/LSGPT/ALT 23.0 IU/LALK PHOS 116.0 IU/ LTOTAL PROTEIN 7.0 g/dLALBUMIN 4.10 g/dLTOTAL BILI 1.20 mg/dLCALCIUM 10.20 mg/ dLeGFR 48 TRIGLYCERIDES 114.0 mg/dLCHOLESTEROL 235.0 mg/dLHDL 53.0 mg/dLLDL ( CALC) 159.0 mg/dLHGB A1C 6.20 %Est Avg Glucose 131.2 mg/dL 11/17/2013 12:40 PM TSH 0.740 uIU/mLT4 6.40 ug/dLT3 TOTAL 93.0 ng/dL 04/21/2014 10:50 AM WBC 6.6 RBC 4.47 HGB 12.80 g/dLHCT 39.20 %MCV 88.0 fLMCH 28.60 pgMCHC 32.70 g/dLRDW CV 12.60 %MPV 9.60 fLPLT 228 GLUCOSE 86.0 mg/ dLSODIUM 142.0 mmol/LPOTASSIUM 3.90 mmol/LCHLORIDE 106.0 mmol/LCO2 27.0 mmol/ LBUN 10.0 mg/dLCREATININE 1.10 mg/dLSGOT/AST 18.0 IU/LSGPT/ALT 17.0 IU/LALK PHOS 86.0 IU/LTOTAL PROTEIN 6.70 g/dLALBUMIN 3.80 g/dLTOTAL BILI 1.0 mg/ dLCALCIUM 9.30 mg/dLeGFR 53 07/23/2014 10:30 AM VITAMIN B12 699.0 pg/mLTRIGLYCERIDES 87.0 mg/ dLCHOLESTEROL 274.0 mg/dLHDL 68.0 mg/dLLDL (CALC) 189.0 mg/dLWBC 6.6 RBC 4.33 HGB 12.80 g/dLHCT 39.10 %MCV 90.0 fLMCH 29.60 pgMCHC 32.70 g/dLRDW CV 13.60 % MPV 9.60 fLPLT 249 %NEUT 35.50 %%LYMP 54.80 %%MONO 7.0 %%EOS 2.40 %%BASO 0.30 %# NEUT 2.33 #LYMP 3.60 #MONO 0.46 #EOS 0.16 #BASO 0.02 GLUCOSE 97.0 mg/dLSODIUM 146.0 mmol/LPOTASSIUM 4.40 mmol/LCHLORIDE 108.0 mmol/LCO2 28.0 mmol/LBUN 12.0 mg /dLCREATININE 1.0 mg/dLSGOT/AST 16.0 IU/LSGPT/ALT 17.0 IU/LALK PHOS 66.0 IU/ LTOTAL PROTEIN 6.50 g/dLALBUMIN 4.10 g/dLTOTAL BILI 1.10 mg/dLCALCIUM 10.10 mg/ dLeGFR 59 HGB A1C 6.0 %Est Avg Glucose 125.5 mg/dL 02/03/2015 3:09 PM Bilirub Ur Ql Strip neg Clarity Ur clear Color Ur yellow Glucose Ur-sCnc neg Hgb Ur Ql Strip Trace-Lysed Ketones Ur Ql Strip Trace Nitrite Ur Ql Strip Neg pH Ur-LsCnc 6.0 Prot Ur Ql Strip 30mg/dL Sp Gr Ur Qn 1.025 Urobilinogen Ur-mCnc 0.2 E.U./dL WBC Est Ur Ql Strip Neg 01/08/2016 9:55 AM WBC 6.2 RBC 4.41 HGB 12.80 g/dLHCT 39.90 %MCV 91.0 fLMCH 29.0 pgMCHC 32.10 g/dLRDW CV 12.90 %MPV 9.30 fLPLT 249 %NEUT 41.40 %%LYMP 47.90 %%MONO 7.40 %%EOS 2.60 %%BASO 0.50 %#NEUT 2.58 #LYMP 2.98 #MONO 0.46 #EOS 0.16 # BASO 0.03 TRIGLYCERIDES 86.0 mg/dLCHOLESTEROL 257.0 mg/dLHDL 62.0 mg/dLLDL (CALC ) 178.0 mg/dLGLUCOSE 100.0 mg/dLSODIUM 143.0 mmol/LPOTASSIUM 3.80 mmol/ LCHLORIDE 106.0 mmol/LCO2 32.0 mmol/LBUN 9.0 mg/dLCREATININE 1.10 mg/dLSGOT/AST 16.0 IU/LSGPT/ALT 14.0 IU/LALK PHOS 90.0 IU/LTOTAL PROTEIN 6.80 g/dLALBUMIN 4.10 g/dLTOTAL BILI 0.70 mg/dLCALCIUM 9.50 mg/dLeGFR 52 TSH 2.120 uIU/ mLHemoglobin A1c 6.0 % 01/08/2016 11:10 AM Clarity Ur brown Color Ur clear Glucose Ur-sCnc neg Bilirub Ur Ql Strip small Ketones Ur Ql Strip 15mg/dl Sp Gr Ur Qn 1.020 Hgb Ur Ql Strip trace pH Ur-LsCnc 6.0 Prot Ur Ql Strip 100mg/dl Urobilinogen Ur-mCnc 1.0 eu/dl Nitrite Ur Ql Strip neg WBC Est Ur Ql Strip neg 03/10/2016 11:43 AM Clarity Ur CLOUDY Color Ur BROWN Glucose Ur-sCnc NEGATIVE Bilirub Ur Ql Strip SMALL Ketones Ur Ql Strip NEGATIVE Sp Gr Ur Qn >=1.030 Hgb Ur Ql Strip TRACE-INTACT pH Ur-LsCnc 5.5 Prot Ur Ql Strip 30MG Urobilinogen Ur- mCnc 1.0 Nitrite Ur Ql Strip NEGATIVE WBC Est Ur Ql Strip NEGATIVE 03/10/2016 12:24 PM COLOR YELLOW APPEARANCE HAZY SPEC GRAV >=1.030 pH 5.5 PROTEIN TRACE GLUCOSE NEGATIVE mg/dLKETONE NEGATIVE BILIRUBIN NEGATIVE BLOOD TRACE-INTACT NITRITE NEGATIVE LEUK SCREEN NEGATIVE CASTS/LPF FEW HYALINE / LPFCRYSTALS NEGATIVE MUCOUS THRDS 1+ BACTERIA FEW EPITH CELLS FEW SQUAMOUS / HPFTRICHOMONAS NEGATIVE YEAST NEGATIVE 03/10/2016 1:00 PM WBC 8.2 RBC 4.69 HGB 13.70 g/dLHCT 43.60 %MCV 93.0 fLMCH 29.20 pgMCHC 31.40 g/dLRDW CV 12.90 %MPV 9.30 fLPLT 280 %NEUT 53.0 %%LYMP 36.80 %%MONO 7.90 %%EOS 1.50 %%BASO 0.40 %#NEUT 4.36 #LYMP 3.02 #MONO 0.65 #EOS 0.12 # BASO 0.03 GLUCOSE 87.0 mg/dLSODIUM 144.0 mmol/LPOTASSIUM 4.20 mmol/LCHLORIDE 106.0 mmol/LCO2 30.0 mmol/LBUN 10.0 mg/dLCREATININE 1.40 mg/dLSGOT/AST 17.0 IU/ LSGPT/ALT 19.0 IU/LALK PHOS 102.0 IU/LTOTAL PROTEIN 6.70 g/dLALBUMIN 4.30 g/ dLTOTAL BILI 0.50 mg/dLCALCIUM 9.50 mg/dLeGFR 40 03/29/2016 2:47 PM COLOR YELLOW APPEARANCE CLEAR SPEC GRAV 1.015 pH 7.0 PROTEIN NEGATIVE GLUCOSE NEGATIVE mg/dLKETONE NEGATIVE BILIRUBIN NEGATIVE BLOOD NEGATIVE NITRITE NEGATIVE LEUK SCREEN NEGATIVE CASTS/LPF NEGATIVE /LPFCRYSTALS NEGATIVE MUCOUS THRDS FEW BACTERIA 3+++ EPITH CELLS 4++++SQUAMOUS / HPFTRICHOMONAS NEGATIVE YEAST NEGATIVE 03/29/2016 2:58 PM Clarity Ur cloudy Color Ur lt yellow Glucose Ur-sCnc neg Bilirub Ur Ql Strip neg Ketones Ur Ql Strip neg Sp Gr Ur Qn 1.015 Hgb Ur Ql Strip neg pH Ur-LsCnc 7.0 Prot Ur Ql Strip neg Urobilinogen Ur-mCnc 1.0 E.U /dL Nitrite Ur Ql Strip neg WBC Est Ur Ql Strip neg 03/29/2016 3:02 PM GLUCOSE 99.0 mg/dLSODIUM 144.0 mmol/LPOTASSIUM 4.20 mmol/ LCHLORIDE 107.0 mmol/LCO2 30.0 mmol/LBUN 14.0 mg/dLCREATININE 1.40 mg/dLCALCIUM 9.0 mg/dLeGFR 40 History Of Immunizations Not available. History of Past Illness Name Date of Onset Comments Acute Pharyngitis Aug 13 2009 8:52AM Upper Respiratory Infection - Acute Aug 13 2009 8:52AM Depressive Disorder Hypertension Diabetes Mellitus, Type II borderline Essential Hypertension Nov 10 2009 10:32AM Back Muscle Spasm Nov 10 2009 10:32AM Back Pain Nov 10 2009 10:32AM Left Otitis Media, Acute Nov 10 2009 10:32AM Exercise Counseling Nov 10 2009 10:32AM Dietary Counseling Nov 10 2009 10:32AM Pharyngitis, Acute Jan 01 2010 3:43PM Hypertension Jan 01 2010 3:43PM Diabetes Mellitus, Type II Jan 07 2010 2:23PM Essential Hypertension Worsening Jan 07 2010 2:23PM Right Otitis Media, Acute Jan 07 2010 2:23PM Chronic Otitis Media Jan 28 2010 3:02PM Hypertension Jan 28 2010 3:02PM Chest Pain Apr 26 2010 9:38AM Right Eustachian Tube Dysfunction Apr 26 2010 9:38AM Insomnia Apr 26 2010 9:38AM Essential Hypertension Apr 26 2010 9:38AM Back Pain 04/16/2014 Insomnia 04/16/2014 Reflux 04/16/2014 Other constipation 01/07/2016 Pharyngitis, Acute Jan 13 2011 8:47AM Laryngitis, Acute Jan 13 2011 8:47AM Hypertension Jan 13 2011 8:47AM Dysuria Jan 26 2011 3:23PM Microscopic hematuria Jan 26 2011 3:23PM Hypertension, Benign Essential Jan 25 2011 8:15AM Diabetes Mellitus, Type II Jun 09 2011 9:57AM Hypertension Jun 09 2011 9:57AM Alopecia Jun 09 2011 9:57AM Leg cramps Jun 09 2011 9:57AM Insomnia Jun 09 2011 9:57AM Constipation Jun 09 2011 9:57AM Lumbago Sep 15 2011 1:40PM Lumbago Sep 20 2011 10:58AM Lumbago Sep 27 2011 11:20AM Lumbago Oct 04 2011 11:18AM Body Mass Index 40.0-44.9, adult Dec 02 2011 10:01AM Influenza Dec 02 2011 10:01AM Dietary Counseling Dec 02 2011 10:01AM Exercise Counseling Dec 02 2011 10:01AM Diabetes Mellitus, Type II Jan 10 2012 8:57AM Diarrhea Jan 10 2012 8:57AM Nausea Jan 10 2012 8:57AM Vomiting Jan 10 2012 8:57AM Dysuria Jan 10 2012 8:57AM Jaundice, unspecified, not of Jan 10 2012 8:57AM Back Pain Apr 24 2012 11:39AM Hypertension Apr 24 2012 11:39AM Depression Apr 24 2012 11:39AM Diabetes Mellitus, Type II May 07 2012 3:09PM Myalgia May 07 2012 3:09PM Fatigue May 07 2012 3:09PM Osteoarthrosis May 07 2012 3:09PM Depressive Disorder May 07 2012 3:09PM Diabetes Mellitus, Type II Aug 22 2012 11:06AM Myalgia Aug 22 2012 11:06AM Osteoarthrosis Aug 22 2012 11:06AM Depressive Disorder Aug 22 2012 11:06AM Essential Hypertension Aug 22 2012 11:06AM Hypertension, Benign Essential Sep 14 2012 10:12AM Essential Hypertension Dec 06 2012 2:37PM Diabetes Mellitus, Type II Dec 06 2012 2:37PM Osteoarthrosis Dec 06 2012 2:37PM Depressive Disorder Dec 06 2012 2:37PM Lumbar Disc Disease Dec 06 2012 2:37PM Essential Hypertension Mar 05 2013 9:30AM Diabetes Mellitus, Type II Mar 05 2013 9:30AM Lumbar Disc Disease Mar 05 2013 9:30AM Osteoarthrosis Mar 05 2013 9:30AM Depressive Disorder Mar 05 2013 9:30AM Essential Hypertension Aug 28 2013 3:12PM Hyperlipidemia Aug 28 2013 3:12PM Diabetes Mellitus, Type II Aug 28 2013 3:12PM Lumbar Disc Disease Aug 28 2013 3:12PM Osteoarthrosis Aug 28 2013 3:12PM Depressive Disorder Aug 28 2013 3:12PM Fatigue Aug 28 2013 3:12PM Throat Pain Nov 15 2013 6:22PM Thyroid Enlargement Nov 15 2013 6:22PM Thyroid Enlargement Nov 19 2013 10:56AM Back Pain Apr 16 2014 2:05PM Hypertension Apr 16 2014 2:05PM Depressive Disorder Apr 16 2014 2:05PM Insomnia Apr 16 2014 2:05PM Reflux Apr 16 2014 2:05PM Hypertension Jul 23 2014 9:06AM Diabetes mellitus Jul 23 2014 9:06AM Osteoarthritis Jul 23 2014 9:06AM Anxiety Jul 23 2014 9:06AM Fatigue Jul 23 2014 9:06AM Screening, heart disease, ischemic Jul 23 2014 9:06AM Dietary Counseling Jul 23 2014 9:06AM Exercise Counseling Jul 23 2014 9:06AM Body Mass Index [BMI]; body mass index between 30-39, adult; body mass index 37.0-37.9, adult Jul 23 2014 9:06AM Hyperlipidemia Jul 24 2014 2:15PM Diabetes Jul 24 2014 2:15PM Essential hypertension Jul 24 2014 2:15PM Back Pain Jan 05 2015 3:31PM Arthralgia Jan 05 2015 3:31PM Fatigue Jan 05 2015 3:31PM Hypertension Jan 05 2015 3:31PM Insomnia Jan 05 2015 3:31PM Reflux Jan 05 2015 3:31PM Depressive Disorder Jan 05 2015 3:31PM Abdominal Pain Feb 03 2015 1:50PM Back Pain Feb 03 2015 1:50PM Hematuria Feb 03 2015 1:50PM Abdominal Pain Jun 29 2015 3:11PM Constipation Jun 29 2015 3:11PM Chronic Back Pain Jun 29 2015 3:11PM Midline low back pain without sciatica Jan 07 2016 4:11PM Fatigue, unspecified type Jan 07 2016 4:11PM Urinary urgency Jan 07 2016 4:11PM Weight gain Jan 07 2016 4:11PM Type 2 diabetes mellitus without complication Jan 07 2016 4:11PM Other constipation Jan 07 2016 4:11PM Routine gynecological examination Jan 27 2016 9:04AM Encounter for screening mammogram for breast cancer Jan 27 2016 9:04AM Colon Cancer Screening Jan 27 2016 2:53PM Left lower quadrant pain Mar 10 2016 11:43AM Dysuria Mar 10 2016 11:43AM Hematuria Mar 10 2016 11:43AM Fever, unspecified fever cause Mar 10 2016 11:43AM Hematuria Mar 21 2016 3:24PM Left lower quadrant pain Mar 21 2016 3:24PM Hematuria Mar 23 2016 9:49AM Left Flank pain Mar 29 2016 2:29PM Acute nonintractable headache, unspecified headache type Mar 29 2016 2:29PM Fever, unspecified Mar 29 2016 2:29PM Pain of right lower extremity Apr 12 2016 3:22PM Leg swelling Apr 12 2016 3:22PM Calf tenderness Apr 12 2016 3:22PM Payers Insurance Name Company Name Plan Name Plan Number Policy Number Policy Group Number [id number] Friday, 2008 [employer] Benefits [employer] Benefits [id number] Tuesday, 2009 [facility] Self Insurance Fund [facility] Self Insurance [facility] [id number] N/ A 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 03/29/2016 Office visit Adriana Harris BRIDGE MAINTENANCE WORKER 03/10/2016 Office visit Adriana Harris BRIDGE MAINTENANCE WORKER 02/12/2016 Hospital Al Junior MD 01/27/2016 Office visit Al Junior MD 01/27/2016 Office visit 01/27/2016 Office visit Adriana Harris BRIDGE MAINTENANCE WORKER 01/07/2016 Office visit Adriana Harris BRIDGE MAINTENANCE WORKER 06/29/2015 Office visit Adriana Harris BRIDGE MAINTENANCE WORKER 02/03/2015 Office visit Adriana Harris BRIDGE MAINTENANCE WORKER 01/05/2015 Office visit Adriana Harris BRIDGE MAINTENANCE WORKER 09/15/2014 [facility] Mulu Logan MD 07/23/2014 Office visit Monikajarrell Bob BRIDGE MAINTENANCE WORKER 04/16/2014 Office visit Adriana Harris BRIDGE MAINTENANCE WORKER 11/15/2013 Office visit Patrick Montano BRIDGE MAINTENANCE WORKER 08/28/2013 Office visit Judith Whitaker MD 03/05/2013 Office visit Judith Whitaker MD 01/30/2013 Records Request Judith Whitaker MD 12/06/2012 Office visit Judith Whitaker MD 09/14/2012 Nurse visit Judith Whitaker MD 08/22/2012 Office visit Judith Whitaker MD 05/07/2012 Office visit Judith Whitaker MD 04/24/2012 Office visit Adriana Harris BRIDGE MAINTENANCE WORKER 01/10/2012 Office visit Judith Whitaker MD 12/02/2011 Office visit Adriana Harris BRIDGE MAINTENANCE WORKER 10/04/2011 Office visit Judith Whitaker MD 09/27/2011 Office visit Judith Whitaker MD 09/20/2011 Office visit Judith Whitaker MD 09/15/2011 Office visit Judith Whitaker MD 06/09/2011 Office visit Adriana Harris BRIDGE MAINTENANCE WORKER 01/26/2011 Office visit Judith Whitaker MD 01/24/2011 Nurse visit Judith Whitaker MD 01/13/2011 Office visit Judith Whitaker MD 04/26/2010 Office visit Magdy Blair DO 04/21/2010 Laboratory Neto Downs MD 04/21/2010 Laboratory Neto Downs MD 04/21/2010 [facility] Neto Downs MD 01/28/2010 Office visit Magdy Blair DO 01/07/2010 Office visit Magdy Blair DO 01/01/2010 Office visit Amber HANNA 11/10/2009 Office visit Magdy Blair DO 08/13/2009 Office visit Judith Whitaker MD 08/13/2009 Laboratory Judith Whitaker MD
--- OUTSIDE RECORDS SUMMARY | 2018-07-23 18:44 | XMS REPORT ---
Author Author Adriana Harris [facility] Address [address] [place] [id number] Care Team Providers Care Senior Web Services Developer Name Role Phone Adriana Harris PCP Unavailable [...] Number [facility] Date [facility] [id number] Friday, 2008 [employer] Benefits [employer] Benefits [id number] Tuesday, 2009 [facility] Self Insurance Fund [facility] Self Insurance [facility] [id number] N/ A [facility] Law [facility] Law [facility] [id number] N/A History of Encounters Visit Date Visit Type Provider 04/12/2016 Office visit Adriana Harris BOSTON CUTTER 03/29/2016 Office visit Adriana Harris BOSTON CUTTER 03/10/2016 Office visit Adriana Harris BOSTON CUTTER 02/12/2016 Hospital Al Junior MD 01/27/2016 Office visit Al Junior MD 01/27/2016 Office visit 01/27/2016 Office visit Adriana Harris BOSTON CUTTER 01/07/2016 Office visit Adriana Harris BOSTON CUTTER 06/29/2015 Office visit Adriana Harris BOSTON CUTTER 02/03/2015 Office visit Adriana Harris BOSTON CUTTER 01/05/2015 Office visit Adriana Harris BOSTON CUTTER 09/15/2014 [facility] Mulu Logan MD 07/23/2014 Office visit Monikajarrell Bob BOSTON CUTTER 04/16/2014 Office visit Adriana Harris BOSTON CUTTER 11/15/2013 Office visit Patrick Montano BOSTON CUTTER 08/28/2013 Office visit Judith Whitaker MD 03/05/2013 Office visit Judith Whitaker MD 01/30/2013 Records Request Judith Whitaker MD 12/06/2012 Office visit Judith Whitaker MD 09/14/2012 Nurse visit Judith Whitaker MD 08/22/2012 Office visit Judith Whitaker MD 05/07/2012 Office visit Judith Whitaker MD 04/24/2012 Office visit Adraina Harris BOSTON CUTTER 01/10/2012 Office visit Judith Whitaker MD 12/02/2011 Office visit Adriana Harris BOSTON CUTTER 10/04/2011 Office visit Judith Whitaker MD 09/27/2011 Office visit Judith Whitaker MD 09/20/2011 Office visit Judith Whitaker MD 09/15/2011 Office visit Judith Whitaker MD 06/09/2011 Office visit Adriana Harris BOSTON CUTTER 01/26/2011 Office visit Judith Whitaker MD 01/24/2011 Nurse visit Judith Whitaker MD 01/13/2011 Office visit Judith Whitaker MD 04/26/2010 Office visit Magdy Blair DO 04/21/2010 Laboratory Neto Downs MD 04/21/2010 Laboratory Neto Downs MD 04/21/2010 [facility] Neto Downs MD 01/28/2010 Office visit Magdy Blair DO 01/07/2010 Office visit Magdy Blair DO 01/01/2010 Office visit Amber HANNA 11/10/2009 Office visit Magdy Blair DO 08/13/2009 Office visit Judith Whitaker MD 08/13/2009 Laboratory Judith Whitaker MD
--- OUTSIDE RECORDS SUMMARY | 2018-07-23 18:46 | XMS REPORT ---
Author Author Adriana Harris Organization [facility] Address [address] [place] [id number] Care Team Providers Care Nanotechnician Name Role Phone Adriana Harris PCP Unavailable Allergies and Adverse Reactions Name Reaction Notes lisinopril cough Plan of Treatment Planned Activity Comments Planned Date Planned Time Plan/Goal CBC With Auto Differential 01/07/2016 12:00 AM Comprehensive Metabolic Panel 12/06/2012 12:00 AM Lipid panel (total cholesterol, lipoproteins, HDL, triglycerides) 2012 12:00 AM Hemoglobin A1c 12/06/2012 12:00 AM CBC (automated H&H, platelets, WBC and automated differential) 12/06/2012 12:00 AM persistant Hematuria 12/28/2016 9:50 AM CMP (comprehensive metabolic panel) 10/14/2014 12:00 AM Lipid profile 10/14/2014 12:00 AM Medications Active Name Start Date Estimated Completion Date SIG Comments cyclobenzaprine 10 mg oral tablet 01/05/2015 Take one tablet at bedtime as needed Benicar HCT 20-12.5 mg oral tablet 12/14/2015 TAKE 1 TABLET BY MOUTH EVERY DAY Lipitor 20 mg oral tablet 01/11/2016 take 1 tablet (20 mg) by oral route once daily at bedtime esomeprazole magnesium 40 mg oral capsule,delayed release(DR/EC) 02/08/2016 TAKE 1 CAPSULE BY MOUTH TWICE DAILY Lipitor 20 mg oral tablet 02/17/2016 TAKE 1 TABLET (20 MG) BY ORAL ROUTE ONCE DAILY AT BEDTIME Hyzaar 50-12.5 mg oral tablet 07/04/2016 TAKE 1 TABLET BY ORAL ROUTE ONCE DAILY FOR 30 DAYS Zorvolex 35 mg oral capsule 11/10/2016 02/08/2017 take 1 capsule (35 mg) by oral route 3 times per day for 30 days Hyzaar 50-12.5 mg oral tablet 11/10/2016 TAKE 1 TABLET BY ORAL ROUTE ONCE DAILY FOR 30 DAYS Lipitor 20 mg oral tablet 11/10/2016 TAKE 1 TABLET (20 MG) BY ORAL ROUTE ONCE DAILY AT BEDTIME Name Start Date Expiration Date SIG Comments [...] oral route once daily for 30 days Contrave 8-90 mg oral tablet extended release 01/27/2016 04/26/2016 take 2 tablets by oral route 2 times per day in the morning and evening for 30 days Cipro 500 mg oral tablet 03/10/2016 03/17/2016 take 1 tablet (500 mg) by oral route every 12 hours for 7 days Augmentin 875-125 mg oral tablet 03/30/2016 04/06/2016 take 1 tablet by oral route every 12 hours for 7 days Hyzaar 50-12.5 mg oral tablet 04/12/2016 06/11/2016 take 1 tablet by oral route once daily for 30 days hydrochlorothiazide 12.5 mg oral tablet 04/13/2016 04/18/2016 take 1 tablet ( 12.5 mg) by oral route once daily for 5 days Discontinued Name Start Date Discontinued Date [...] at bedtime as needed meloxicam oral 01/05/2015 Nexium 40 mg oral capsule,delayed release(DR/EC) 01/05/2015 11/10/2016 take 1 capsule (40 mg) by oral route 2 times per day oxycodone-acetaminophen 5-325 mg oral tablet 01/05/2015 06/29/2015 take 1 tablet by oral route every 6 hours as needed Medrol (Phillip) 4 mg oral tablets,dose pack 01/05/2015 01/05/2015 take as directed diclofenac sodium 75 mg oral tablet,delayed release (DR/EC) 01/05/20152016 take 1 tablet (75 mg) by oral route 2 times per day hydrocodone-acetaminophen 5-325 mg oral tablet 02/03/2015 06/29/2015 [...] tablet (150 mg) by oral route once phentermine 37.5 mg oral tablet 08/10/2016 11/10/2016 take 1 tablet (37.5 mg ) by oral route once daily before breakfast hydrocodone-acetaminophen 5-325 mg oral tablet 08/10/2016 11/10/2016 take 1 tablet by oral route every 6 hours as needed for pain Problem List Description Status Onset Diabetes Mellitus, Type II Active Hypertension Active Depressive Disorder Active Back Pain Active 04/16/2014 Insomnia Active 04/16/2014 Reflux Active 04/16/2014 Other constipation Active 01/07/2016 Vital Signs Date Time BP-Sys(mm[Hg] BP-Karolyn(mm[Hg]) HR(bpm) RR(rpm) Temp WT HT HC BMI BSA BMI Percentile O2 Sat(%) 11/10/2016 8:25:00 AM 132 mmHg 70 mmHg 74 bpm 18 rpm 97.7 F 237.25 lbs 64 in 40.72 kg/m2 2.20 m2 98 % 08/10/2016 2:39:00 PM 126 mmHg 64 mmHg 60 bpm 18 rpm 93.6 F 235.25 lbs 64 in 40.3802 kg/m 2.1951 m 96 % 07/08/2016 8:52:00 AM 128 mmHg 86 mmHg 57 bpm 18 rpm 98.5 F 254.375 lbs 65 in 42.33 kg/m2 2.30 m2 96 % 04/12/2016 3:21:00 PM 132 mmHg 76 mmHg 62 bpm 18 rpm 98.2 F 253.125 lbs 65 in 42.1218 kg/m 2.2947 m 99 % 03/29/2016 2:27:00 PM 136 mmHg 74 mmHg 55 bpm 18 rpm 98.1 F 248.125 lbs 65 in 41.29 kg/m2 2.27 m2 97 % 03/10/2016 11:26:00 AM 108 mmHg 58 mmHg 72 bpm 20 rpm 97.9 F 142.5 lbs 65 in 23.713 kg/m 1.7217 m 01/27/2016 2:52:00 PM 150 mmHg 86 mmHg 76 bpm 20 rpm 97.2 F 248 lbs 65 in 41.27 kg/m2 2.27 m2 96 % 01/27/2016 9:01:00 AM 122 mmHg 77 mmHg 52 bpm 18 rpm 98.2 F 248 lbs 65 in 41.2689 kg/m 2.2713 m 99 % 01/07/2016 4:06:00 PM 120 mmHg 86 mmHg 76 bpm 16 rpm 98 F 240.062 lbs 65 in 39.95 kg/m2 2.23 m2 97 % 06/29/2015 3:09:00 PM 136 mmHg 74 mmHg 82 bpm 18 rpm 97.1 F 233.25 lbs 65 in 38.8144 kg/m 2.2028 m 98 % 02/03/2015 1:48:00 PM 122 mmHg 78 mmHg 65 bpm 18 rpm 98 F 231.125 lbs 65 in 38.46 kg/m2 2.19 m2 96 % 01/05/2015 3:34:00 PM 128 mmHg 90 mmHg 66 bpm 18 rpm 226 lbs 65 in 37.608 kg/m 2.1683 m 07/23/2014 9:04:00 AM 110 mmHg 80 mmHg 51 bpm 20 rpm 97.2 F 226.6 lbs 65 in 37.71 kg/m2 2.17 m2 99 % 04/16/2014 2:00:00 PM 130 mmHg 90 mmHg 71 bpm 18 rpm 97.3 F 222 lbs 65 in 36.9424 kg/m 2.149 m 97 % 11/15/2013 6:21:00 PM 130 mmHg 80 mmHg 68 bpm 16 rpm 98.2 F 235 lbs 65 in 39.11 kg/m2 2.21 m2 99 % 08/28/2013 3:09:00 PM 148 mmHg [...] rpm 98.9 F 272.25 lbs 65 in 45.30 kg/m2 2.38 m2 01/10/2012 8:52:00 AM 130 mmHg 100 mmHg 93 bpm 16 rpm 97.8 F 265.25 lbs 97 % 12/02/2011 9:59:00 AM 138 mmHg 80 mmHg 64 bpm 18 rpm 99.7 F 269.375 lbs 65 in 44.83 kg/m2 2.37 m2 10/04/2011 11:16:00 AM 130 mmHg 90 mmHg [...] rpm 97.5 F 275.25 lbs 65 in 45.8035 kg/m 2.3929 m 01/26/2011 3:23:00 PM 142 mmHg 100 mmHg [...] rpm 97.8 F 270 lbs 65 in 44.93 kg/m2 2.37 m2 Social History Name Description Comments Tobacco Never smoker 11/10/2016 - 03/29/2016 - Children Graduated High School Attended some college Has never smoked Has never used alcohol Active but no formal exercise Health care History of Procedures Date Ordered Description Order Status 06/29/2015 12:00 AM X-RAY EXAM OF ABDOMEN Reviewed 06/09/2011 12:00 AM COMPLETE CBC W/AUTO DIFF [...] Reviewed 01/07/2016 12:00 AM COMPREHEN METABOLIC PANEL Reviewed 01/07/2016 12:00 AM LIPID PANEL Reviewed 01/07/2016 12:00 AM GLYCOSYLATED HEMOGLOBIN TEST Reviewed 01/07/2016 12:00 AM ASSAY THYROID STIM HORMONE Reviewed 01/27/2016 12:00 AM SPECIMEN HANDLING OFFICE-LAB Reviewed 01/27/2016 12:00 AM CYTOPATH C/V THIN LAYER Reviewed 01/27/2016 12:00 AM MAMMOGRAM BOTH BREASTS Reviewed 03/10/2016 11:43 AM URINALYSIS AUTO W/O SCOPE Reviewed 03/10/2016 12:00 AM COMPLETE CBC W/AUTO DIFF WBC Reviewed 03/10/2016 12:00 AM COMPREHEN METABOLIC PANEL Reviewed 03/10/2016 12:00 AM URINALYSIS AUTO W/SCOPE Reviewed 03/21/2016 12:[address] ABD & PELV W/CONTRAST Reviewed 03/23/2016 12:00 AM URNLS DIP STICK/TABLET REAGENT AUTO MICROSCOPY Reviewed 03/29/2016 2:58 PM URINALYSIS AUTO W/O SCOPE Reviewed 03/29/2016 12:00 AM METABOLIC PANEL TOTAL CA Reviewed 03/29/2016 12:00 AM URINE CULTURE/COLONY COUNT Reviewed 04/12/2016 12:00 AM EXTREMITY STUDY Reviewed 12/02/2011 12:00 AM INFLUENZA A/B AG EIA Reviewed 07/08/2016 12:00 AM METABOLIC PANEL TOTAL CA Reviewed 07/08/2016 12:00 AM COMPLETE CBC W/AUTO DIFF WBC Reviewed 07/08/2016 12:00 AM GLYCOSYLATED HEMOGLOBIN TEST Reviewed 01/10/2012 12:00 AM COMPREHEN METABOLIC PANEL Reviewed 01/10/2012 12:00 AM LIPID PANEL Reviewed 01/10/2012 12:00 AM GLYCOSYLATED HEMOGLOBIN TEST Reviewed 01/10/2012 12:00 AM COMPLETE CBC W/AUTO DIFF WBC Reviewed 01/10/2012 12:00 AM HEPATIC FUNCTION PANEL Reviewed 01/10/2012 12:00 AM ASSAY OF LIPASE Reviewed 11/10/2016 8:57 AM URINALYSIS AUTO W/O SCOPE Reviewed 11/10/2016 12:00 AM COMPREHEN METABOLIC PANEL Reviewed 11/22/2016 12:00 AM Consult/Referral Reviewed 05/07/2012 12:00 AM COMPREHEN METABOLIC PANEL Reviewed 05/07/2012 12:00 AM LIPID PANEL Reviewed 05/07/2012 12:00 AM GLYCOSYLATED HEMOGLOBIN TEST Reviewed 05/07/2012 12:00 AM ASSAY THYROID STIM HORMONE Reviewed 05/07/2012 12:00 AM COMPLETE CBC W/AUTO DIFF WBC Reviewed 05/07/2012 12:00 AM RBC SED RATE AUTOMATED Reviewed 08/22/2012 12:00 AM COMPREHEN METABOLIC PANEL Reviewed 08/22/2012 12:00 AM LIPID PANEL Reviewed 08/22/2012 12:00 AM GLYCOSYLATED HEMOGLOBIN TEST Reviewed 08/22/2012 12:00 AM COMPLETE CBC W/AUTO DIFF WBC Reviewed 03/05/2013 12:00 AM COMPREHEN METABOLIC PANEL Reviewed 03/05/2013 12:00 AM LIPID PANEL Reviewed 03/05/2013 12:00 AM GLYCOSYLATED HEMOGLOBIN TEST Reviewed 03/05/2013 12:00 AM COMPLETE CBC W/AUTO DIFF WBC Reviewed 08/28/2013 12:00 AM COMPREHEN METABOLIC PANEL Reviewed 08/28/2013 12:00 AM LIPID PANEL Reviewed 08/28/2013 12:00 AM GLYCOSYLATED HEMOGLOBIN TEST Reviewed 08/28/2013 12:00 AM ASSAY THYROID STIM HORMONE Reviewed 08/28/2013 12:00 AM COMPLETE CBC W/AUTO DIFF WBC Reviewed 08/28/2013 12:00 AM VITAMIN B-12 Reviewed 11/15/2013 12:00 AM ASSAY THYROID STIM HORMONE Reviewed 11/15/2013 12:00 AM ASSAY OF TOTAL THYROXINE Reviewed 11/15/2013 12:00 AM ASSAY TRIIODOTHYRONINE (T3) Reviewed 11/15/2013 12:00 AM ASSAY OF FREE THYROXINE Reviewed 11/19/2013 12:00 AM US EXAM OF HEAD AND NECK Reviewed 04/16/2014 12:00 AM COMPLETE CBC W/AUTO DIFF WBC Reviewed 04/16/2014 12:00 AM COMPREHEN METABOLIC PANEL Reviewed 07/23/2014 12:00 AM COMPLETE CBC W/AUTO DIFF WBC Reviewed 07/23/2014 12:00 AM COMPREHEN METABOLIC PANEL Reviewed 07/23/2014 12:00 AM LIPID PANEL Reviewed 07/23/2014 12:00 AM GLYCOSYLATED HEMOGLOBIN TEST Reviewed 07/23/2014 12:00 AM VITAMIN B-12 Reviewed 01/27/2011 12:00 AM URINALYSIS AUTO W/O SCOPE Reviewed 02/03/2015 3:09 PM URINALYSIS AUTO W/O SCOPE Reviewed 02/03/2015 12:00 AM X-RAY EXAM OF ABDOMEN Reviewed Results Summary Data and Description Results 11/10/2009 11:07 AM LDL (CALC) 166.0 mg/dLCHOLESTEROL 234 mg/dLTOT CHOL/HDL 4.8 TRIGLYCERIDES 94.0 mg/dLHDL 49.0 mg/dLGLUCOSE 86 SODIUM 144.0 mmol/ LPOTASSIUM 3.90 mmol/LCHLORIDE 105.0 mmol/LCO2 27.0 mmol/LBUN 10.0 mg/ dLCREATININE 1.20 mg/dLCALCIUM 9.40 mg/dLAGE 43 GFR NonAA 49 GFR AA 59 eGFR 49 eGFR AA* 59 12/04/2009 12:00 AM Dialated Eye Exam- Diabetic Done 01/07/2010 12:00 AM Mammogram -Women over 40 Declined Pap Smear Not indicated Foot Exam-Diabetic Declined 01/26/2011 5:49 PM COLOR YELLOW APPEARANCE HAZY SPEC GRAV >=1.030 pH 6.0 PROTEIN NEGATIVE GLUCOSE NEGATIVE KETONE NEGATIVE BILIRUBIN NEGATIVE BLOOD TRACE -INTACT NITRITE NEGATIVE LEUK SCREEN NEGATIVE WBC/HPF 0-5 RBC/HPF RARE CASTS/ LPF NEGATIVE CRYSTALS NEGATIVE MUCOUS THRDS NEGATIVE BACTERIA FEW EPITH CELLS NEGATIVE TRICHOMONAS NEGATIVE YEAST NEGATIVE CULT SET UP? NO 06/09/2011 10:42 AM WBC 8.6 RBC 4.66 HGB 14.0 g/dLHCT 41.40 %MCV 89.0 fLMCH 30.0 pgMCHC 33.80 g/dLRDW SD 43 RDW CV 13.40 %MPV 9.80 fLPLT 274 NRBC# 0.00 NRBC % 0.0 %NEUT 40.0 %%LYMP 50.30 %%MONO 7.40 %%EOS 2.10 %%BASO 0.20 %#NEUT 3.43 # LYMP 4.33 #MONO 0.64 #EOS 0.18 #BASO 0.02 MANUAL DIFF NOT IND GLUCOSE 108.0 mg/ dLSODIUM 141.0 mmol/LPOTASSIUM 3.40 mmol/LCHLORIDE 105.0 mmol/LCO2 23.0 mmol/ LBUN 14.0 mg/dLCREATININE 1.40 mg/dLSGOT/AST 21.0 IU/LSGPT/ALT 26.0 IU/LALK PHOS 78.0 IU/LTOTAL PROTEIN 7.20 g/dLALBUMIN 4.10 g/dLTOTAL BILI 0.60 mg/ dLCALCIUM 9.80 mg/dLAGE 45 GFR NonAA 40 GFR AA 48 eGFR 40 eGFR AA* 48 MAGNESIUM 2.50 mg/dLTRIGLYCERIDES 131.0 mg/dLCHOLESTEROL 234.0 mg/dLHDL 48.0 mg/dLTOT CHOL /HDL 4.9 LDL (CALC) 160.0 mg/dLGLYCOHEMOGLOBIN A1C 6.10 %TSH 2.30 uIU/mL 12/02/2011 10:37 AM INFLUENZA A & B INFLUENZA A POSITIVE 01/10/2012 9:24 AM WBC 9.3 RBC 4.43 HGB 13.20 g/dLHCT 39.40 %MCV 89.0 fLMCH 29.80 pgMCHC 33.50 g/dLRDW SD 44 RDW CV 13.50 %MPV 9.30 fLPLT 252 NRBC# 0.00 NRBC% 0.0 %NEUT 66.50 %%LYMP 23.80 %%MONO 6.60 %%EOS 3.0 %%BASO 0.10 %#NEUT 6.18 #LYMP 2.21 #MONO 0.61 #EOS 0.28 #BASO 0.01 MANUAL DIFF NOT IND LIPASE 19.0 U/LGLUCOSE 111.0 mg/dLSODIUM 141.0 mmol/LPOTASSIUM 3.60 mmol/LCHLORIDE 106.0 mmol/LCO2 25.0 mmol/LBUN 8.0 mg/dLCREATININE 1.30 mg/dLSGOT/AST 13.0 IU/LSGPT/ ALT 19.0 IU/LALK PHOS 59.0 IU/LTOTAL PROTEIN 6.90 g/dLALBUMIN 4.30 g/dLTOTAL BILI 0.30 mg/dLCALCIUM 9.20 mg/dLAGE 46 GFR NonAA 44 GFR AA 53 eGFR 44 eGFR AA* 53 TRIGLYCERIDES 93.0 mg/dLCHOLESTEROL 193.0 mg/dLHDL 35.0 mg/dLTOT CHOL/HDL 5.5 LDL (CALC) 139.0 mg/dLDIRECT BILI 0.20 mg/dLGLYCOHEMOGLOBIN A1C 5.70 % 09/14/2012 10:05 AM WBC 5.7 RBC 4.40 HGB 13.10 g/dLHCT 40.20 %MCV 91.0 fLMCH 29.80 pgMCHC 32.60 g/dLRDW SD 43 RDW CV 12.80 %MPV 9.30 fLPLT 270 NRBC# 0.00 NRBC% 0.0 %NEUT 39.70 %%LYMP 48.70 %%MONO 8.60 %%EOS 2.60 %%BASO 0.40 %#NEUT 2.25 #LYMP 2.76 #MONO 0.49 #EOS 0.15 #BASO 0.02 MANUAL DIFF NOT IND TRIGLYCERIDES 90.0 mg/dLCHOLESTEROL 229.0 mg/dLHDL 45.0 mg/dLTOT CHOL/HDL 5.1 LDL (CALC) 166.0 mg/dLGLUCOSE 100.0 mg/dLSODIUM 141.0 mmol/LPOTASSIUM 3.60 mmol/ LCHLORIDE 107.0 mmol/LCO2 25.0 mmol/LBUN 10.0 mg/dLCREATININE 1.30 mg/dLSGOT/ AST 20.0 IU/LSGPT/ALT 36.0 IU/LALK PHOS 60.0 IU/LTOTAL PROTEIN 6.90 g/dLALBUMIN 4.0 g/dLTOTAL BILI 0.40 mg/dLCALCIUM 9.30 mg/dLAGE 46 GFR NonAA 44 GFR AA 53 eGFR 44 eGFR AA* 53 GLYCOHEMOGLOBIN A1C 5.90 % 03/05/2013 10:17 AM WBC 8.1 RBC 4.40 HGB 13.10 g/dLHCT 39.70 %MCV 90.0 fLMCH 29.80 pgMCHC 33.0 g/dLRDW SD 43 RDW CV 13.10 %MPV 9.60 fLPLT 300 NRBC# 0.00 NRBC % 0.0 %NEUT 44.10 %%LYMP 47.40 %%MONO 6.10 %%EOS 2.20 %%BASO 0.20 %#NEUT 3.55 # LYMP 3.82 #MONO 0.49 #EOS 0.18 #BASO 0.02 MANUAL DIFF NOT IND GLUCOSE 119.0 mg/ dLSODIUM 143.0 mmol/LPOTASSIUM 3.40 mmol/LCHLORIDE 106.0 mmol/LCO2 25.0 mmol/ LBUN 12.0 mg/dLCREATININE 1.40 mg/dLSGOT/AST 23.0 IU/LSGPT/ALT 37.0 IU/LALK PHOS 73.0 IU/LTOTAL PROTEIN 6.80 g/dLALBUMIN 4.0 g/dLTOTAL BILI 0.60 mg/ dLCALCIUM 9.60 mg/dLAGE 47 GFR NonAA 40 GFR AA 48 eGFR 40 eGFR AA* 48 TRIGLYCERIDES 142.0 mg/dLCHOLESTEROL 253.0 mg/dLHDL 41.0 mg/dLTOT CHOL/HDL 6.2 LDL (CALC) 184.0 mg/dLGLYCOHEMOGLOBIN A1C 6.80 % 08/28/2013 5:07 PM COLOR YELLOW APPEARANCE CLEAR SPEC GRAV 1.015 pH 7.0 PROTEIN NEGATIVE GLUCOSE NEGATIVE KETONE NEGATIVE BILIRUBIN NEGATIVE BLOOD TRACE -INTACT NITRITE NEGATIVE LEUK SCREEN NEGATIVE WBC/HPF NEGATIVE RBC/HPF 0-5 CASTS /LPF NEGATIVE CRYSTALS NEGATIVE MUCOUS THRDS NEGATIVE BACTERIA FEW EPITH CELLS 2 ++ SQUAMOUS TRICHOMONAS NEGATIVE YEAST NEGATIVE CULT SET UP? NO 09/02/2013 10:15 AM WBC 6.8 RBC 4.97 HGB 14.40 g/dLHCT 43.90 %MCV 88.0 fLMCH 29.0 pgMCHC 32.80 g/dLRDW SD 42 RDW CV 13.20 %MPV 10.0 fLPLT 251 NRBC# 0.00 NRBC % 0.0 %NEUT 40.50 %%LYMP 47.70 %%MONO 9.40 %%EOS 2.10 %%BASO 0.30 %#NEUT 2.77 # LYMP 3.25 #MONO 0.64 #EOS 0.14 #BASO 0.02 MANUAL DIFF NOT IND VITAMIN B12 >2000 PG/MLTSH 1.160 uIU/mLGLUCOSE 98.0 mg/dLSODIUM 143.0 mmol/LPOTASSIUM 3.20 mmol/ LCHLORIDE 104.0 mmol/LCO2 29.0 mmol/LBUN 8.0 mg/dLCREATININE 1.20 mg/dLSGOT/AST 18.0 IU/LSGPT/ALT 23.0 IU/LALK PHOS 116.0 IU/LTOTAL PROTEIN 7.0 g/dLALBUMIN 4.10 g/dLTOTAL BILI 1.20 mg/dLCALCIUM 10.20 mg/dLAGE 47 GFR NonAA 48 GFR AA 58 eGFR 48 eGFR AA* 58 TRIGLYCERIDES 114.0 mg/dLCHOLESTEROL 235.0 mg/dLHDL 53.0 mg/ dLTOT CHOL/HDL 4.4 LDL (CALC) 159.0 mg/dLHGB A1C 6.20 %Est Avg Glucose 131.2 mg/ dL 11/17/2013 12:40 PM FREE T4 1.00 TSH 0.740 uIU/mLT4 6.40 ug/dLT3 TOTAL 93.0 ng/ dL 04/21/2014 10:50 AM WBC 6.6 RBC 4.47 HGB 12.80 g/dLHCT 39.20 %MCV 88.0 fLMCH 28.60 pgMCHC 32.70 g/dLRDW SD 40 RDW CV 12.60 %MPV 9.60 fLPLT 228 NRBC# 0.00 NRBC% 0.0 GLUCOSE 86.0 mg/dLSODIUM 142.0 mmol/LPOTASSIUM 3.90 mmol/LCHLORIDE 106.0 mmol/LCO2 27.0 mmol/LBUN 10.0 mg/dLCREATININE 1.10 mg/dLSGOT/AST 18.0 IU/ LSGPT/ALT 17.0 IU/LALK PHOS 86.0 IU/LTOTAL PROTEIN 6.70 g/dLALBUMIN 3.80 g/ dLTOTAL BILI 1.0 mg/dLCALCIUM 9.30 mg/dLAGE 48 GFR NonAA 53 GFR AA 64 eGFR 53 eGFR AA* 60 07/23/2014 10:30 AM VITAMIN B12 699.0 pg/mLTRIGLYCERIDES 87.0 mg/ dLCHOLESTEROL 274.0 mg/dLHDL 68.0 mg/dLTOT CHOL/HDL 4.0 LDL (CALC) 189.0 mg/ dLWBC 6.6 RBC 4.33 HGB 12.80 g/dLHCT 39.10 %MCV 90.0 fLMCH 29.60 pgMCHC 32.70 g/ dLRDW SD 45 RDW CV 13.60 %MPV 9.60 fLPLT 249 NRBC# 0.00 NRBC% 0.0 %NEUT 35.50 %% LYMP 54.80 %%MONO 7.0 %%EOS 2.40 %%BASO 0.30 %#NEUT 2.33 #LYMP 3.60 #MONO 0.46 # EOS 0.16 #BASO 0.02 MANUAL DIFF NOT IND GLUCOSE 97.0 mg/dLSODIUM 146.0 mmol/ LPOTASSIUM 4.40 mmol/LCHLORIDE 108.0 mmol/LCO2 28.0 mmol/LBUN 12.0 mg/ dLCREATININE 1.0 mg/dLSGOT/AST 16.0 IU/LSGPT/ALT 17.0 IU/LALK PHOS 66.0 IU/ LTOTAL PROTEIN 6.50 g/dLALBUMIN 4.10 g/dLTOTAL BILI 1.10 mg/dLCALCIUM 10.10 mg/ dLAGE 48 GFR NonAA 59 GFR AA 72 eGFR 59 eGFR AA* 60 HGB A1C 6.0 %Est Avg Glucose 125.5 [...] %MCV 91.0 fLMCH 29.0 pgMCHC 32.10 g/dLRDW SD 43 RDW CV 12.90 %MPV 9.30 fLPLT 249 NRBC# 0.00 NRBC % 0.0 %NEUT 41.40 %%LYMP 47.90 %%MONO 7.40 %%EOS 2.60 %%BASO 0.50 %#NEUT 2.58 # LYMP 2.98 #MONO 0.46 #EOS 0.16 #BASO 0.03 MANUAL DIFF NOT IND TRIGLYCERIDES 86.0 mg/dLCHOLESTEROL 257.0 mg/dLHDL 62.0 mg/dLTOT CHOL/HDL 4.1 LDL (CALC) 178.0 mg/dLGLUCOSE 100.0 mg/dLSODIUM 143.0 mmol/LPOTASSIUM 3.80 mmol/LCHLORIDE 106.0 mmol/LCO2 32.0 mmol/LBUN 9.0 mg/dLCREATININE 1.10 mg/dLSGOT/AST 16.0 IU/ LSGPT/ALT 14.0 IU/LALK PHOS 90.0 IU/LTOTAL PROTEIN 6.80 g/dLALBUMIN 4.10 g/ dLTOTAL BILI 0.70 mg/dLCALCIUM 9.50 mg/dLAGE 50 GFR NonAA 52 GFR AA 63 eGFR 52 eGFR AA* >60 TSH 2.120 uIU/mLHemoglobin A1c 6.0 %Estim. Avg Glu (eAG) 126 01/08/2016 11:10 AM Clarity Ur brown Color [...] BLOOD TRACE-INTACT NITRITE NEGATIVE LEUK SCREEN NEGATIVE MICRO INDICATED? SEE BELOW WBC/HPF NEGATIVE RBC/HPF RARE CASTS/LPF FEW HYALINE /LPFCRYSTALS NEGATIVE MUCOUS THRDS 1+ BACTERIA FEW EPITH CELLS FEW SQUAMOUS /HPFTRICHOMONAS NEGATIVE YEAST NEGATIVE CULT SET UP? NO 03/10/2016 1:00 PM WBC 8.2 RBC 4.69 HGB 13.70 g/dLHCT 43.60 %MCV 93.0 fLMCH 29.20 pgMCHC 31.40 g/dLRDW SD 43 RDW CV 12.90 %MPV 9.30 fLPLT 280 NRBC# 0.00 NRBC% 0.0 %NEUT 53.0 %%LYMP 36.80 %%MONO 7.90 %%EOS 1.50 %%BASO 0.40 %#NEUT 4.36 #LYMP 3.02 #MONO 0.65 #EOS 0.12 #BASO 0.03 MANUAL DIFF NOT IND GLUCOSE 87.0 mg/dLSODIUM 144.0 mmol/LPOTASSIUM 4.20 mmol/LCHLORIDE 106.0 mmol/LCO2 30.0 mmol/LBUN 10.0 mg/dLCREATININE 1.40 mg/dLSGOT/AST 17.0 IU/LSGPT/ALT 19.0 IU/ LALK PHOS 102.0 IU/LTOTAL PROTEIN 6.70 g/dLALBUMIN 4.30 g/dLTOTAL BILI 0.50 mg/ dLCALCIUM 9.50 mg/dLAGE 50 GFR NonAA 40 GFR AA 48 eGFR 40 eGFR AA* 48 03/29/2016 2:47 PM COLOR YELLOW APPEARANCE CLEAR SPEC GRAV 1.015 pH 7.0 PROTEIN NEGATIVE GLUCOSE NEGATIVE mg/dLKETONE NEGATIVE BILIRUBIN NEGATIVE BLOOD NEGATIVE NITRITE NEGATIVE LEUK SCREEN NEGATIVE WBC/HPF 0-5 RBC/HPF 0-5 CASTS/ LPF NEGATIVE /LPFCRYSTALS NEGATIVE MUCOUS THRDS FEW BACTERIA 3+++ EPITH CELLS 4+ +++SQUAMOUS /HPFTRICHOMONAS NEGATIVE YEAST NEGATIVE CULT ORDERED YES 03/29/2016 2:58 PM Clarity Ur cloudy Color [...] 30.0 mmol/LBUN 14.0 mg/dLCREATININE 1.40 mg/dLCALCIUM 9.0 mg/dLAGE 50 GFR NonAA 40 GFR AA 48 eGFR 40 eGFR AA* 48 07/08/2016 9:20 AM HGB A1C 5.70 %Est Avg Glucose 116.9 mg/dLGLUCOSE 95.0 mg/ dLSODIUM 144.0 mmol/LPOTASSIUM 3.50 mmol/LCHLORIDE 107.0 mmol/LCO2 28.0 mmol/ LBUN 9.0 mg/dLCREATININE 1.10 mg/dLCALCIUM 9.10 mg/dLAGE 50 GFR NonAA 52 GFR AA 63 eGFR 52 eGFR AA* >60 WBC 6.2 RBC 4.26 HGB 12.30 g/dLHCT 38.80 %MCV 91.0 fLMCH 28.90 pgMCHC 31.70 g/dLRDW SD 43 RDW CV 12.80 %MPV 9.50 fLPLT 254 NRBC# 0.00 NRBC% 0.0 %NEUT 46.10 %%LYMP 44.10 %%MONO 6.30 %%EOS 2.80 %%BASO 0.50 %# NEUT 2.84 #LYMP 2.71 #MONO 0.39 #EOS 0.17 #BASO 0.03 MANUAL DIFF NOT IND 11/10/2016 8:50 AM GLUCOSE 99.0 mg/dLSODIUM 142.0 mmol/LPOTASSIUM 3.40 mmol/ LCHLORIDE 104.0 mmol/LCO2 31.0 mmol/LBUN 10.0 mg/dLCREATININE 1.20 mg/dLSGOT/ AST 18.0 IU/LSGPT/ALT 16.0 IU/LALK PHOS 84.0 IU/LTOTAL PROTEIN 7.10 g/dLALBUMIN 4.10 g/dLTOTAL BILI 0.60 mg/dLCALCIUM 9.20 mg/dLAGE 50 GFR NonAA 47 GFR AA 57 eGFR 47 eGFR AA* 57 11/10/2016 8:57 AM Clarity Ur clear Color Ur yellow Glucose Ur-sCnc neg Bilirub Ur Ql Strip small Ketones Ur Ql Strip trace Sp Gr Ur Qn >=1.030 Hgb Ur Ql Strip trace-intact pH Ur-LsCnc 5.0 Prot Ur Ql Strip 30 mg/dL Urobilinogen Ur- mCnc 1.0 E.U/dL Nitrite Ur Ql Strip neg WBC Est Ur Ql Strip neg 11/18/2016 11:46 AM COLOR YELLOW APPEARANCE CLEAR SPEC GRAV 1.015 pH 6.0 PROTEIN NEGATIVE GLUCOSE NEGATIVE mg/dLKETONE NEGATIVE BILIRUBIN NEGATIVE BLOOD TRACE-INTACT NITRITE NEGATIVE [place]UK SCREEN NEGATIVE MICRO IND? SEE BELOW WBC/HPF RARE RBC/HPF RARE CASTS/LPF NEGATIVE /LPFCRYSTALS NEGATIVE MUCOUS THRDS NEGATIVE BACTERIA NEGATIVE EPITH CELLS FEW SQUAMOUS /HPFTRICHOMONAS NEGATIVE YEAST NEGATIVE 12/28/2016 8:39 AM COLOR YELLOW APPEARANCE CLEAR SPEC GRAV 1.025 pH 5.5 PROTEIN NEGATIVE GLUCOSE NEGATIVE mg/dLKETONE NEGATIVE BILIRUBIN NEGATIVE BLOOD TRACE- INTACT NITRITE NEGATIVE LEUK SCREEN NEGATIVE MICRO IND? SEE BELOW WBC/HPF RARE RBC/HPF RARE CASTS/LPF FEW HYALINE /LPFCRYSTALS NEGATIVE MUCOUS THRDS 1+ BACTERIA NEGATIVE EPITH CELLS 1+ SQUAMOUS /HPFTRICHOMONAS NEGATIVE YEAST NEGATIVE History Of Immunizations Not available. History of [...] 3:22PM Calf tenderness Apr 12 2016 3:22PM Insulin resistance Jul 08 2016 8:56AM Reflux Jul 08 2016 8:56AM Depressive Disorder Jul 08 2016 8:56AM Weight gain Jul 08 2016 8:56AM Other fatigue Jul 08 2016 8:56AM Morbid (severe) obesity due to excess calories Jul 08 2016 8:56AM Hypertension Aug 10 2016 2:41PM Mixed hyperlipidemia Aug 10 2016 2:41PM Morbid obesity due to excess calories Aug 10 2016 2:41PM Low back pain Aug 10 2016 2:41PM Other chronic pain Aug 10 2016 2:41PM Left upper quadrant pain Nov 10 2016 8:27AM Acute left-sided thoracic back pain Nov 10 2016 8:27AM Itching Nov 10 2016 8:27AM Hematuria Nov 10 2016 8:27AM Hematuria Nov 22 2016 9:54AM Payers Insurance Name Company Name Plan Name Plan Number Policy Number Policy Group Number Start Date BCBS Bcbs [facility] [id number] Friday, 2000 [employer] Benefits [employer] Benefits [id number] Tuesday, 2009 [facility] Self Insurance Fund [facility] Self Insurance Fund [id number] N/ A [facility] Law [facility] Law [facility] [id number] N/A Comp [place] [id number] N/A History of Encounters Visit Date Visit Type Provider 11/10/2016 Office visit Adriana Walker [facility] 08/10/2016 Office visit Adriana Walker [facility]AC[facility] 07/08/2016 Office visit Adriana Walker [facility] 04/12/2016 Office visit Adriana Walker [facility]AC[facility] 03/29/2016 Office visit Adriana Walker [facility]AC[facility] 03/10/2016 Office visit Adriana Walker [facility]AC[facility] 02/12/2016 Hospital Al Junior MD 01/27/2016 Office visit Al Junior MD 01/27/2016 Office visit 01/27/2016 Office visit Adriana Walker [facility]AC[facility] 01/07/2016 Office visit Adriana Walker [facility]AC[facility] 06/29/2015 Office visit Adriana Walker [facility]AC[facility] 02/03/2015 Office visit Adriana Walker DE[facility] FACULT[facility] 01/05/2015 Office visit Adriana Walker [facility] FACULT[facility] 09/15/2014 [facility] Mulu Logan MD 07/23/2014 Office visit Monika Bob [facility] OF FACULT[facility] 04/16/2014 Office visit Adriana Walker [facility]AC[facility] 11/15/2013 Office visit Patrick Montano DEAN OF FACULTY 08/28/2013 Office visit Judith Whitaker MD 03/05/2013 Office visit Judith Whitaker MD 01/30/2013 Records Request Judith Whitaker MD 12/06/2012 Office visit Judith Whitaker MD 09/14/2012 Nurse visit Judith Whitaker MD 08/22/2012 Office visit Judith Whitaker MD 05/07/2012 Office visit Judith Whitaker MD 04/24/2012 Office visit Adriana Harris [facility]AC[facility] 01/10/2012 Office visit Judith Whitaker MD 12/02/2011 Office visit Adriana Harris [facility] FACULT[facility] 10/04/2011 Office visit Judith Whitaker MD 09/27/2011 Office visit Judith Whitaker MD 09/20/2011 Office visit Judith Whitaker MD 09/15/2011 Office visit Judith Whitaker MD 06/09/2011 Office visit Adriana Harris [facility] FACULTY 01/26/2011 Office visit Judith Whitaker MD 01/24/2011 Nurse visit Judith Whitaker MD 01/13/2011 Office visit Judith Whitaker MD 04/26/2010 Office visit Magdy Blair DO 04/21/2010 Laboratory Neto Downs MD 04/21/2010 Laboratory Neto Downs MD 04/21/2010 Hospital Neto Downs MD 01/28/2010 Office visit Magdy Blair DO 01/07/2010 Office visit Magdy Blair DO 01/01/2010 Office visit Amber HANNA 11/10/2009 Office visit Magdy Blair DO 08/13/2009 Office visit Judith Whitaker MD 08/13/2009 Laboratory Judith Whitaker MD
--- OUTSIDE RECORDS SUMMARY | 2018-07-23 18:47 | XMS REPORT ---
Author Author Adriana Harris [facility] Address [address] [place] [id number] Care Team Providers Care Jewelsmith Name Role Phone Adriana Harris PCP Unavailable Allergies and Adverse Reactions Name Reaction Notes lisinopril cough Plan of Treatment Planned Activity Comments Planned Date Planned Time Plan/Goal COMPLETE CBC W/AUTO DIFF WBC 01/07/2016 12:00 AM URINALYSIS AUTO W/SCOPE 03/23/2016 12:00 AM COMPREHEN METABOLIC PANEL 12/06/2012 12:00 [...] by oral route once daily at bedtime Benicar HCT 20-12.5 mg oral tablet 01/26/2016 TAKE 1 TABLET BY MOUTH EVERY DAY Contrave 8-90 mg oral tablet extended release 01/27/2016 04/26/2016 take 2 tablets by oral route 2 times per day in the morning and evening for 30 days Diflucan 150 mg oral tablet 02/03/2016 take 1 tablet (150 mg) by oral route once esomeprazole magnesium 40 mg oral capsule,delayed release(DR/EC) 02/08/2016 TAKE 1 CAPSULE BY MOUTH TWICE DAILY Lipitor 20 mg oral tablet 02/17/2016 TAKE 1 TABLET (20 MG) BY ORAL ROUTE ONCE DAILY AT BEDTIME hydrocodone-acetaminophen 5-325 mg oral tablet 03/10/2016 take 1 tablet by oral route every 6 hours as needed for pain Name Start Date Expiration Date SIG Comments [...] or tea by oral route once daily Problem List Description Status Onset Diabetes Mellitus, Type II Active Hypertension Active Depressive Disorder Active Back Pain Active 04/16/2014 Insomnia Active 04/16/2014 Reflux Active 04/16/2014 Other constipation Active 01/07/2016 Vital Signs Date Time BP-Sys(mm[Hg] BP-Karolyn(mm[Hg]) HR(bpm) RR(rpm) Temp WT HT HC BMI BSA BMI Percentile O2 Sat(%) 03/10/2016 11:26:00 AM 108 mmHg 58 mmHg [...] History Name Description Comments Tobacco Never smoker Children Graduated High School Attended some college [...] AM CT ABD & PELV W/CONTRAST Returned 12/02/2011 12:00 AM INFLUENZA A/B AG [...] %MCV 91.0 fLMCH 29.80 pgMCHC 32.60 g/dLRDW CV 12.80 %MPV [...] dLTOTAL BILI 0.50 mg/dLCALCIUM 9.50 mg/dLeGFR 40 History Of Immunizations Not available. [...] 2016 3:24PM Hematuria Mar 23 2016 9:49AM Payers Insurance Name Company Name Plan Name Plan Number Policy Number Policy Group Number Start Date BCBS Bcbs [facility] [id number] Friday, 2008 HealthScope Benefits HealthScope Benefits [id number] Tuesday, 2009 [facility] Self Insurance Fund [facility] Self Insurance Fund [id number] N/ A [employer] [facility] [employer] [id number] N/A History of Encounters Visit Date Visit Type Provider 03/10/2016 Office visit Adriana Harris TOOL INSPECTOR 02/12/2016 [facility] Al Junior MD 01/27/2016 Office visit Al Junior MD 01/27/2016 Office visit 01/27/2016 Office visit Adriana Harris TOOL INSPECTOR 01/07/2016 Office visit Adriana Harris TOOL INSPECTOR 06/29/2015 Office visit Adriana Harris TOOL INSPECTOR 02/03/2015 Office visit Adriana Harris TOOL INSPECTOR 01/05/2015 Office visit Adriana Harris TOOL INSPECTOR 09/15/2014 Hospital Mulu Logan MD 07/23/2014 Office visit Monika Bob TOOL INSPECTOR 04/16/2014 Office visit Adriana Harris TOOL INSPECTOR 11/15/2013 Office visit Patrick Montano TOOL INSPECTOR 08/28/2013 Office visit Judith Whitaker MD 03/05/2013 Office visit Judith Whitaker MD 01/30/2013 Records Request Judith Whitaker MD 12/06/2012 Office visit Judith Whitaker MD 09/14/2012 Nurse visit Judith Whitaker MD 08/22/2012 Office visit Judith Whitaker MD 05/07/2012 Office visit Judith Whitaker MD 04/24/2012 Office visit Adriana Harris TOOL INSPECTOR 01/10/2012 Office visit Judith Whitaker MD 12/02/2011 Office visit Adriana Harris TOOL INSPECTOR 10/04/2011 Office visit Judith Whitaker MD 09/27/2011 Office visit Judith Whitaker MD 09/20/2011 Office visit Judith Whitaker MD 09/15/2011 Office visit Judith Whitaker MD 06/09/2011 Office visit Adriana Harris TOOL INSPECTOR 01/26/2011 Office visit Judith Whitaker MD 01/24/2011 Nurse visit Judith Whitaker MD 01/13/2011 Office visit Judith Whitaker MD 04/26/2010 Office visit Magdy Blair DO 04/21/2010 Laboratory Neto Downs MD 04/21/2010 Laboratory Neto Downs MD 04/21/2010 [facility] Neto Downs MD 01/28/2010 Office visit Magdy Blair DO 01/07/2010 Office visit Magdy Blair DO 01/01/2010 Office visit Amber HANNA 11/10/2009 Office visit Magdy Blair DO 08/13/2009 Office visit Judith Whitaker MD 08/13/2009 Laboratory Judith Whitaker MD
--- OUTSIDE RECORDS SUMMARY | 2018-07-23 18:48 | XMS REPORT ---
Author Author Adriana Harris [facility] Address [address] [place] [id number] Care Team Providers Care Actuarial Intern Name Role Phone Adriana Harris PCP Unavailable [...] every 6 hours as needed for pain Augmentin 875-125 mg oral tablet 03/30/2016 04/06/2016 take 1 tablet by oral route every 12 hours for 7 days Name Start Date Expiration Date SIG [...] HC BMI BSA BMI Percentile O2 Sat(%) 03/29/2016 2:27:00 PM 136 mmHg 74 mmHg [...] 03/29/2016 12:00 AM URINE CULTURE/COLONY COUNT Returned 12/02/2011 12:00 AM INFLUENZA A/B AG [...] 2:29PM Fever, unspecified Mar 29 2016 2:29PM Payers Insurance Name Company Name Plan Name Plan Number Policy Number Policy Group Number Start Date [facility] [id number] Friday, 2008 HealthScope Benefits HealthScope Benefits [id number] Tuesday, 2009 [facility] Self Insurance Fund [facility] Self Insurance Fund [id number] N/ A [employer] [id number] N/A History of Encounters Visit Date Visit Type Provider 03/29/2016 Office visit Adriana Harris ACCOUNTANT 03/10/2016 Office visit Adriana Harris ACCOUNTANT 02/12/2016 [facility] Al Junior MD 01/27/2016 Office visit Al Junior MD 01/27/2016 Office visit 01/27/2016 Office visit Adriana Harris ACCOUNTANT 01/07/2016 Office visit Adriana Harris ACCOUNTANT 06/29/2015 Office visit Adriana Harris ACCOUNTANT 02/03/2015 Office visit Adriana Harris ACCOUNTANT 01/05/2015 Office visit Adriana Harris ACCOUNTANT 09/15/2014 [facility] Mulu Logan MD 07/23/2014 Office visit Monika Bob ACCOUNTANT 04/16/2014 Office visit Adriana Harris ACCOUNTANT 11/15/2013 Office visit Patrick Montano ACCOUNTANT 08/28/2013 Office visit Judith Whitaker MD 03/05/2013 Office visit Judith Whitaker MD 01/30/2013 Records Request Judith Whitaker MD 12/06/2012 Office visit Judith Whitaker MD 09/14/2012 Nurse visit Judith Whitaker MD 08/22/2012 Office visit Judith Whitaker MD 05/07/2012 Office visit Judith Whitaker MD 04/24/2012 Office visit Adriana Harris ACCOUNTANT 01/10/2012 Office visit Judith Whitaker MD 12/02/2011 Office visit Adriana Harris ACCOUNTANT 10/04/2011 Office visit Judith Whitaker MD 09/27/2011 Office visit Judith Whitaker MD 09/20/2011 Office visit Judith Whitaker MD 09/15/2011 Office visit Judith Whitaker MD 06/09/2011 Office visit Adriana Harris APRN 01/26/2011 Office visit Judith Whitaker MD 01/24/2011 [...]
--- OUTSIDE RECORDS SUMMARY | 2018-07-23 18:49 | XMS REPORT ---
Author Author [facility] Organization [facility] Address [address] [place] [phone] Care Team Providers Care Study Director Name Role Phone PCP Unavailable Allergies and Adverse Reactions Name Reaction Notes NO KNOWN DRUG ALLERGIES lisinopril cough Plan of Treatment Planned Activity Comments Planned Date Planned Time Plan/Goal COMPREHEN METABOLIC PANEL 12/06/2012 12:00 AM LIPID PANEL 12/06/2012 12:00 AM GLYCOSYLATED HEMOGLOBIN TEST 12/06/2012 12:00 AM COMPLETE CBC W/AUTO DIFF WBC 12/06/2012 12:00 AM COMPREHEN METABOLIC PANEL 10/14/2014 12:00 AM LIPID PANEL 10/14/2014 12:00 AM X-RAY EXAM OF ABDOMEN 02/03/2015 12:00 AM Medications Active Name Start Date Estimated Completion Date SIG Comments Benicar HCT oral tablet 20-12.5 mg 01/05/2015 07/04/2015 take 1 tablet by oral route once daily for 30 days Nexium oral capsule,delayed release(DR/EC) 40 mg 01/05/2015 take 1 capsule (40 mg) by oral route 2 times per day oxycodone-acetaminophen oral tablet 5-325 mg 01/05/2015 take 1 tablet by oral route every 6 hours as needed cyclobenzaprine oral tablet 10 mg 01/05/2015 Take one tablet at bedtime as needed diclofenac sodium oral tablet,delayed release (DR/EC) 75 mg 01/05/2015 take 1 tablet (75 mg) by oral route 2 times per day Lexapro oral tablet 10 mg 01/05/2015 02/04/2015 take 1 tablet (10 mg) by oral route once daily for 30 days hydrocodone-acetaminophen oral tablet 5-325 mg 02/03/2015 take 1 tablet by oral route every 6 hours as needed for pain Name Start Date Expiration Date SIG Comments Albuterol Sulfate Inhalation HFA Aerosol Inhaler 90 mcg/Actuation 08/13/2009 inhale 1 - 2 puffs by inhalation route every 4 hours as needed Zithromax Z-Phillip Oral Tablet 250 mg 11/10/2009 11/15/2009 take 2 tablets (500 mg) by oral route once daily for 1 day then 1 tablet (250 mg) by oral route once daily for 4 days Phentermine Oral Tablet 37.5 mg 11/10/2009 12/10/2009 take 1 tablet (37.5 mg/ day) by oral route once daily before breakfast for 30 days Amoxicillin Oral Capsule 500 mg 01/01/2010 01/11/2010 take 1 capsule (500 mg) by oral route every 12 hours for 10 days Bactrim DS Oral Tablet 160-800 mg 01/07/2010 01/14/2010 take 1 tablet by oral route 2 times per day for 7 days Augmentin Oral Tablet 500-125 mg 02/11/2010 02/18/2010 take 1 tablet by oral route every 12 hours for 7 days Aspirin Oral Tablet 81 mg take 1 tablet (81 mg) by oral route once daily Fluticasone Nasal Morenci, Suspension 50 mcg/Actuation 04/26/2010 inhale 2 sprays in each nostril by intranasal route once daily Amoxicillin Oral Tablet 875 mg 01/13/2011 01/23/2011 take 1 tablet (875 mg) by oral route every 12 hours for 10 days simvastatin Oral Tablet 40 mg 06/10/2011 09/08/2011 take 1 tablet (40 mg) by oral route once daily in the evening for 30 days muscle pains norethindrone acetate Oral Tablet 5 mg 06/10/2011 09/08/2011 take 1 tablet daily Ambien Oral Tablet 10 mg 08/01/2011 08/31/2011 take 1 tablet (10 mg) by oral route once daily at bedtime for 30 days cyclobenzaprine Oral Tablet 10 mg 11/14/2011 11/24/2011 TAKE 1 TABLET BY MOUTH THREE TIMES DAILY NEEDED phentermine Oral Tablet 37.5 mg 12/02/2011 01/01/2012 take 1 tablet (37.5 mg) by oral route once daily before breakfast for 30 days ibuprofen Oral Tablet 800 mg 01/09/2012 02/08/2012 TAKE ONE TABLET BY MOUTH THREE TIMES DAILY WITH FOOD Nexium Oral Capsule, Delayed Release(E.C.) 40 mg 01/16/2012 02/15/2012 TAKE ONE CAPSULE BY MOUTH EVERY NIGHT AT BEDTIME zolpidem Oral Tablet 10 mg 03/20/2012 04/19/2012 TAKE ONE TABLET BY MOUTH EVERY NIGHT AT BEDTIME FOR 30 DAYS Norvasc Oral Tablet 5 mg 04/24/2012 06/23/2012 take 1 tablet (5 mg) by oral route once daily for 30 days phentermine Oral capsule 37.5 mg 12/06/2012 01/05/2013 take 1 capsule (37.5 mg ) by oral route once daily before breakfast for 30 days Qsymia Oral capsule, ER multiphase 24 hr 3.75-23 mg 03/05/2013 04/04/2013 take 1 capsule by oral route once daily in the morning for 14 days diclofenac sodium Oral tablet,delayed release (DR/EC) 75 mg 03/05/20132012 take 1 tablet (75 mg) by oral route 2 times per day for 30 days Percocet Oral tablet 10-325 mg 03/05/2013 take 0.5-1 tablet by oral route every 8 hours as needed pravastatin Oral tablet 40 mg 03/05/2013 06/03/2013 take 1 tablet (40 mg) by oral route once daily at bedtime potassium chloride oral tablet,ER particles/crystals 20 mEq 09/03/20132013 take 1 tablet (20 meq) by oral route once daily with food for 30 days pravastatin oral tablet 20 mg 12/03/2013 03/03/2014 take 1 tablet (20 mg) by oral route once daily at bedtime for 30 days cyclobenzaprine oral tablet 10 mg 04/16/2014 take 1 tablet daily at HS as needed Discontinued Name Start Date Discontinued Date SIG Comments Hydrochlorothiazide Oral Tablet 25 mg 11/10/2009 take 1 tablet (25 mg) by oral route once daily for 30 days pt. not taking Wellbutrin XL Oral Tablet Sustained Release 24 hr 150 mg 06/09/2011 take 1 tablet (150 mg) by oral route once daily Depo-Estradiol Intramuscular Oil 5 mg/mL 06/09/2011 inject 1 milliliter (5 mg) by intramuscular route every 4 weeks Loratadine Oral Tablet 10 mg 08/13/2009 11/10/2009 take 1 tablet (10 mg) by oral route once daily no longer taking Norflex Oral Tablet Sustained Release 100 mg 11/10/2009 01/07/2010 take 1 tablet (100 mg) by oral route 2 times per day as needed morning and evening Meloxicam Oral Tablet 15 mg 11/10/2009 01/07/2010 take 1 tablet (15 mg) by oral route once daily with food Simvastatin Oral Tablet 10 mg 11/23/2009 01/07/2010 take 1 tablet (10 mg) by oral route once daily in the evening for 30 days Benicar Oral Tablet 40 mg 01/05/2010 01/07/2010 TAKE 1 TABLET BY MOUTH ONCE DAILY Medication replaced Metformin Oral Tablet 500 mg 01/07/2010 06/09/2011 take 1 tablet (500 mg) by oral route 2 times per day with morning and evening meals for 30 days Gomez Oral Tablet 5-40 mg 02/11/2010 04/26/2010 take 1 tablet by oral route once daily for 30 days Lower extremity edema Simvastatin Oral Tablet 40 mg 06/09/2011 take 1 tablet (40 mg) by oral route once daily in the evening Loratadine Oral Tablet 10 mg 04/26/2010 01/10/2012 take 1 tablet (10 mg) by oral route once daily Furosemide Oral Tablet 20 mg 05/20/2010 01/10/2012 take 1 tablet (20 mg) by oral route once daily as needed Hydrocodone-Acetaminophen Oral Tablet 10-500 mg 11/01/2010 01/10/2012 take 1 tablet by oral route every 4 hours as needed Diovan Oral Tablet 320 mg 01/01/2011 01/13/2011 TAKE ONE TABLET BY MOUTH DAILY promethazine Oral Tablet 25 mg 01/26/2011 06/09/2011 take 1 tablet (25 mg) by oral route every 6 hours as needed Amitiza Oral Capsule 24 mcg 06/09/2011 01/10/2012 take 1 capsule (24 mcg) by oral route 2 times per day with food and water Rozerem Oral Tablet 8 mg 06/09/2011 06/21/2011 take 1 tablet (8 mg) by oral route once daily at bedtime Miralax Oral Powder 17 gram/dose 06/20/2011 04/24/2012 take 17 gram mixed with 8 oz. water, juice, soda, coffee or tea by oral route once daily at HS lisinopril Oral Tablet 40 mg 11/11/2011 08/22/2012 TAKE 1 TABLET BY MOUTH EVERY DAY promethazine-codeine Oral Syrup 6.25-10 mg/5 mL 12/02/2011 04/24/2012 take 5 milliliters by oral route every 4-6 hours as needed, not to exceed 30 mL in 24 hours Tamiflu Oral Capsule 75 mg 01/10/2012 take 1 capsule (75 mg) by oral route 2 times per day for 5 days Wellbutrin SR Oral tablet extended release 150 mg 05/07/2012 09/01/2013 take 1 tablet (150 mg) by oral route 2 times per day Ambien CR oral tablet,ext release multiphase 12.5 mg 04/16/2014 07/23/2014 take 1 tablet (12.5 mg) by oral route once daily at bedtime phentermine Oral Tablet 37.5 mg 07/23/2014 01/05/2015 take 1 tablet (37.5 mg ) by oral route once daily before breakfast for 30 days Xanax oral tablet 0.25 mg 07/23/2014 01/05/2015 take 1 tablet (0.25 mg) by oral route at bedtime as needed meloxicam oral 01/05/2015 Medrol (Phillip) oral tablets,dose pack 4 mg 01/05/2015 01/05/2015 take as directed Problem List Description Status Onset Diabetes Mellitus, Type II Active Hypertension Active Depressive Disorder Active Back Pain Active 04/16/2014 Insomnia Active 04/16/2014 Reflux Active 04/16/2014 Vital Signs Date Time BP-Sys(mm[Hg] BP-Karolyn(mm[Hg]) HR(bpm) RR(rpm) Temp WT HT HC BMI BSA BMI Percentile O2 Sat(%) 02/03/2015 1:48:00 PM 122 mmHg 78 mmHg [...] 2.37 m2 Social History Name Description Comments Children Graduated High School Attended some college Has never smoked Has never used alcohol Active but no formal exercise Health care History of Procedures Date Ordered Description Order Status 06/09/2011 12:00 AM COMPLETE CBC W/AUTO DIFF WBC Reviewed 06/09/2011 12:00 AM COMPREHEN METABOLIC PANEL Reviewed 06/09/2011 12:00 AM LIPID PANEL Reviewed 06/09/2011 12:00 AM GLYCOSYLATED HEMOGLOBIN TEST Reviewed 06/09/2011 12:00 AM ASSAY THYROID STIM HORMONE Reviewed 06/09/2011 12:00 AM ASSAY OF MAGNESIUM Reviewed 11/10/2009 12:00 AM METABOLIC PANEL TOTAL CA Reviewed 11/10/2009 12:00 AM LIPID PANEL Reviewed 11/10/2009 12:00 AM LIPID PANEL Reviewed 12/02/2011 12:00 AM INFLUENZA A/B AG [...] 3:09 PM URINALYSIS AUTO W/O SCOPE Reviewed Results Summary Data and Description Results [...] mg/dLLDL ( CALC) 159.0 mg/dLHGB A1C 6.20 % 11/17/2013 12:40 PM TSH 0.740 uIU/mLT4 6.40 [...] 10.10 mg/ dLeGFR 59 HGB A1C 6.0 % 02/03/2015 3:09 PM Bilirub Ur Ql Strip neg Clarity Ur clear Color Ur yellow Glucose Ur-sCnc neg Hgb Ur Ql Strip Trace-Lysed Ketones Ur Ql Strip Trace Nitrite Ur Ql Strip Neg pH Ur-LsCnc 6.0 Prot Ur Ql Strip 30mg/dL Sp Gr Ur Qn 1.025 Urobilinogen Ur-mCnc 0.2 E.U./dL WBC Est Ur Ql Strip Neg History Of Immunizations Not available. History of [...] Back Pain 04/16/2014 Insomnia 04/16/2014 Reflux 04/16/2014 Pharyngitis, Acute Jan 13 2011 8:47AM Laryngitis, [...] 2015 1:50PM Hematuria Feb 03 2015 1:50PM Payers Insurance Name Company Name Plan Name Plan Number Policy Number Policy Group Number [facility] Date [id number] Friday, 2008 HealthScope Benefits HealthScope Benefits [id number] Tuesday, 2009 State Self Insurance Fund State Self Insurance Fund [id number] N/A [employer] [id number] N/A History of Encounters Visit Date Visit Type Provider 02/03/2015 Office visit Adriana Harris SEISMOGRAPH SHOOTER 01/05/2015 Office visit Adriana Harris SEISMOGRAPH SHOOTER 09/15/2014 [facility] Mulu Logan MD 07/23/2014 Office visit Monika Bob SEISMOGRAPH SHOOTER 04/16/2014 Office visit Adriana Harris SEISMOGRAPH SHOOTER 11/15/2013 Office visit Patrick Montano SEISMOGRAPH SHOOTER 08/28/2013 Office visit Judith Whitaker MD 03/05/2013 Office visit Judith Whitaker MD 01/30/2013 Records Request Judith Whitaker MD 12/06/2012 Office visit Judith Whitaker MD 09/14/2012 Nurse visit Judith Whitaker MD 08/22/2012 Office visit Judith Whitaker MD 05/07/2012 Office visit Judith Whitaker MD 04/24/2012 Office visit Adriana Harris SEISMOGRAPH SHOOTER 01/10/2012 Office visit Judith Whitaker MD 12/02/2011 Office visit Adriana Harris SEISMOGRAPH SHOOTER 10/04/2011 Office visit Judith Whitaker MD 09/27/2011 Office visit Judith Whitaker MD 09/20/2011 Office visit Judith Whitaker MD 09/15/2011 Office visit Judith Whitaker MD 06/09/2011 Office visit Adriana Harris SEISMOGRAPH SHOOTER 01/26/2011 Office visit Judith Whitaker MD 01/24/2011 Nurse visit Judith Whitaker MD 01/13/2011 Office visit Judith Whitaker MD 04/26/2010 Office visit Magdy Blair DO 04/21/2010 Laboratory Neto Downs MD 04/21/2010 Laboratory Neto Downs MD 04/21/2010 [facility] Neto Downs MD 01/28/2010 Office visit Magdy Blair DO 01/07/2010 Office visit Magdy Blair DO 01/01/2010 Office visit Amber HANNA 11/10/2009 Office visit Magyd Blair DO 08/13/2009 Office visit Judith Whitaker MD 08/13/2009 Laboratory Judith Whitaker MD
--- OUTSIDE RECORDS SUMMARY | 2018-07-23 18:51 | XMS REPORT ---
Author Author Adriana Harris [facility] Address [address] [place] [phone] Care Team Providers Care Asphalt Tile Floor Layer Name Role Phone Adriana Harris PCP Unavailable [...] AT BEDTIME Hyzaar 50-12.5 mg oral tablet 04/12/2016 06/11/2016 take 1 tablet by oral route once daily for 30 days hydrochlorothiazide 12.5 mg oral tablet 04/13/2016 04/18/2016 take 1 tablet ( 12.5 mg) by oral route once daily for 5 days hydrocodone-acetaminophen 5-325 mg oral tablet 04/13/2016 take 1 tablet by oral route every [...] Policy Number Policy Group Number [facility] Date [id number] Friday, 2008 HealthScope Benefits HealthScope Benefits [id number] Tuesday, 2009 [facility] Self Insurance Fund [facility] Self Insurance [facility] [id number] N/ A [facility] Law [facility] Law [facility] [id number] N/A History of Encounters Visit Date Visit Type Provider 04/12/2016 Office visit Adriana Harris MILLINERY DESIGNER 03/29/2016 Office visit Adriana Harris MILLINERY DESIGNER 03/10/2016 Office visit Adriana Harris MILLINERY DESIGNER 02/12/2016 Hospital Al Junior MD 01/27/2016 Office visit Al Junior MD 01/27/2016 Office visit 01/27/2016 Office visit Adriana Harris MILLINERY DESIGNER 01/07/2016 Office visit Adriana Harris MILLINERY DESIGNER 06/29/2015 Office visit Adriana Harris MILLINERY DESIGNER 02/03/2015 Office visit Adriana Harris MILLINERY DESIGNER 01/05/2015 Office visit Adriana Harris MILLINERY DESIGNER 09/15/2014 [facility] Mulu Logan MD 07/23/2014 Office visit Monikajarrell Bob MILLINERY DESIGNER 04/16/2014 Office visit Adriana Harris MILLINERY DESIGNER 11/15/2013 Office visit Patrick Montano MILLINERY DESIGNER 08/28/2013 Office visit Judith Whitaker MD 03/05/2013 Office visit Judith Whitaker MD 01/30/2013 Records Request Judith Whitaker MD 12/06/2012 Office visit Judith Whitaker MD 09/14/2012 Nurse visit Judith Whitaker MD 08/22/2012 Office visit Judith Whitaker MD 05/07/2012 Office visit Judith Whitaker MD 04/24/2012 Office visit Adriana Harris MILLINERY DESIGNER 01/10/2012 Office visit Judith Whitaker MD 12/02/2011 Office visit Adriana Harris MILLINERY DESIGNER 10/04/2011 Office visit Judith Whitaker MD 09/27/2011 Office visit Judith Whitaker MD 09/20/2011 Office visit Judith Whitaker MD 09/15/2011 Office visit Judith Whitaker MD 06/09/2011 Office visit Adriana Harris MILLINERY DESIGNER 01/26/2011 Office visit Judith Whitaker MD 01/24/2011 Nurse visit Judith Whitaker MD 01/13/2011 Office visit Judith Whitaker MD 04/26/2010 Office visit Magdy Blair DO 04/21/2010 Laboratory Neto Downs MD 04/21/2010 Laboratory Neto Downs MD 04/21/2010 [facility] Neto Downs MD 01/28/2010 Office visit Magdy Blair DO 01/07/2010 Office visit Magdy Blair DO 01/01/2010 Office visit Amber HANNA 11/10/2009 Office visit Magdy Blair DO 08/13/2009 Office visit Judith Whitaker MD 08/13/2009 Laboratory Judith Whitaker MD
--- OUTSIDE RECORDS SUMMARY | 2018-07-23 18:52 | XMS REPORT ---
Author Author Adriana Harris [facility] Address [address] [place] [id number] Care Team Providers Care Director Of Federal Sales Name Role Phone Adriana Harris PCP Unavailable [...] AT BEDTIME hydrocodone-acetaminophen 5-325 mg oral tablet 06/07/2016 take 1 tablet by oral route every 6 hours as needed for pain Lipitor 20 mg oral tablet 07/04/2016 TAKE 1 TABLET (20 MG) BY ORAL ROUTE ONCE DAILY AT BEDTIME Hyzaar 50-12.5 mg oral tablet 07/04/2016 TAKE 1 TABLET BY ORAL ROUTE ONCE DAILY FOR 30 DAYS phentermine 37.5 mg oral tablet 07/08/2016 take 1 tablet (37.5 mg) by oral route once daily before breakfast Name Start Date Expiration Date SIG Comments [...] HC BMI BSA BMI Percentile O2 Sat(%) 07/08/2016 8:52:00 AM 128 mmHg 86 mmHg [...] 12:00 AM INFLUENZA A/B AG EIA Returned 07/08/2016 12:00 AM METABOLIC PANEL TOTAL CA Returned 07/08/2016 12:00 AM COMPLETE CBC W/AUTO DIFF WBC Returned 07/08/2016 12:00 AM GLYCOSYLATED HEMOGLOBIN TEST Returned 01/10/2012 12:00 AM COMPREHEN METABOLIC PANEL [...] mg/dLCHOLESTEROL 234.0 mg/dLHDL 48.0 mg/dLLDL (CALC) 160.0 mg/dLTSH 2.30 uIU/mL 12/02/2011 10:37 AM INFLUENZA A [...] 35.0 mg/dLLDL (CALC) 139.0 mg/dLDIRECT BILI 0.20 mg/dL 09/14/2012 10:05 AM WBC 5.7 RBC 4.40 [...] g/dLTOTAL BILI 0.40 mg/dLCALCIUM 9.30 mg/dLeGFR 44 03/05/2013 10:17 AM WBC 8.1 RBC 4.40 [...] dLCHOLESTEROL 253.0 mg/dLHDL 41.0 mg/dLLDL (CALC) 184.0 mg/dL 08/28/2013 5:07 PM COLOR YELLOW APPEARANCE CLEAR [...] 235.0 mg/dLHDL 53.0 mg/dLLDL ( CALC) 159.0 mg/dLEst Avg Glucose 131.2 mg/dL 11/17/2013 12:40 PM [...] BILI 1.10 mg/dLCALCIUM 10.10 mg/ dLeGFR 59 Est Avg Glucose 125.5 mg/dL 02/03/2015 3:09 PM [...] 0.70 mg/dLCALCIUM 9.50 mg/dLeGFR 52 TSH 2.120 uIU/mL 01/08/2016 11:10 AM Clarity Ur brown Color [...] 14.0 mg/dLCREATININE 1.40 mg/dLCALCIUM 9.0 mg/dLeGFR 40 07/08/2016 9:20 AM Est Avg Glucose 116.9 mg/dLGLUCOSE 95.0 mg/dLSODIUM 144.0 mmol/LPOTASSIUM 3.50 mmol/LCHLORIDE 107.0 mmol/LCO2 28.0 mmol/LBUN 9.0 mg/ dLCREATININE 1.10 mg/dLCALCIUM 9.10 mg/dLeGFR 52 WBC 6.2 RBC 4.26 HGB 12.30 g/ dLHCT 38.80 %MCV 91.0 fLMCH 28.90 pgMCHC 31.70 g/dLRDW CV 12.80 %MPV 9.50 fLPLT 254 %NEUT 46.10 %%LYMP 44.10 %%MONO 6.30 %%EOS 2.80 %%BASO 0.50 %#NEUT 2.84 # LYMP 2.71 #MONO 0.39 #EOS 0.17 #BASO 0.03 History Of Immunizations Not available. History of [...] 8:56AM Depressive Disorder Jul 08 2016 8:56AM Payers Insurance Name Company Name Plan Name Plan Number Policy Number Policy Group Number Start Date [id number] Friday, 2008 HealthScope Benefits HealthScope Benefits [id number] Tuesday, 2009 [facility] Self Insurance Fund [facility] Self Insurance Fund [id number] N/ A [employer] Fri [employer] [id number] N/A Comp [place] [id number] N/A History of Encounters Visit Date Visit Type Provider 07/08/2016 Office visit Adriana Harris [employer] 04/12/2016 Office visit Adriana Harris [employer] 03/29/2016 Office visit Adriana Harris [employer] 03/10/2016 Office visit Adriana Harris [employer] 02/12/2016 [facility] Al Junior MD 01/27/2016 Office visit Al Junior MD 01/27/2016 Office visit 01/27/2016 Office visit Adriana Harris [employer] 01/07/2016 Office visit Adriana Harris [employer] 06/29/2015 Office visit Adriana Harris [employer] 02/03/2015 Office visit Adriana Harris [employer] 01/05/2015 Office visit Adriana Harris [employer] 09/15/2014 [facility] Mulu Logan MD 07/23/2014 Office visit Monika Bob [employer] 04/16/2014 Office visit Adriana Harris [employer] 11/15/2013 Office visit Patrick Montano [employer] 08/28/2013 Office visit Judith Whitaker MD 03/05/2013 Office visit Judith Whitaker MD 01/30/2013 Records Request Judith Whitaker MD 12/06/2012 Office visit Judith Whitaker MD 09/14/2012 Nurse visit Judith Whitaker MD 08/22/2012 Office visit Judith Whitaker MD 05/07/2012 Office visit Judith Whitaker MD 04/24/2012 Office visit Adriana Harris [employer] 01/10/2012 Office visit Judith Whitaker MD 12/02/2011 Office visit Adriana Harris APRN 10/04/2011 Office visit Judith Whitaker MD 09/27/2011 [...]
--- OUTSIDE RECORDS SUMMARY | 2018-07-23 18:54 | XMS REPORT ---
Author Author Adriana Harris Organization [facility] Address [address] [place] [id number] Care Team Providers Care Window Cleaner Name Role Phone Adriana Harris PCP Unavailable [...] Estimated Completion Date SIG Comments Benicar HCT 20-12.5 mg oral tablet 12/14/2015 [...] ORAL ROUTE ONCE DAILY FOR 30 DAYS Hyzaar 50-12.5 mg oral tablet 11/10/2016 TAKE 1 TABLET BY ORAL ROUTE ONCE DAILY FOR 30 DAYS Lipitor 20 mg oral tablet 11/10/2016 TAKE 1 TABLET (20 MG) BY ORAL ROUTE ONCE DAILY AT BEDTIME pantoprazole 40 mg oral tablet,delayed release (DR/EC) 02/09/2017 take 1 tablet (40 mg) by oral route once daily hydrocodone-acetaminophen 5-325 mg oral tablet 02/09/2017 take 1 tablet by oral route daily as needed naproxen 500 mg oral tablet 05/03/2017 06/02/2017 take 1 tablet (500 mg) by oral route 2 times per day with food for 30 days phentermine 37.5 mg oral tablet 05/03/2017 06/02/2017 take 1 tablet (37.5 mg) by oral route once daily before breakfast for 30 days Name Start Date Expiration Date SIG [...] oral route once daily for 5 days Zorvolex 35 mg oral capsule 11/10/2016 02/08/2017 take 1 capsule (35 mg) by oral route 3 times per day for 30 days Discontinued Name Start Date Discontinued Date [...] tablets,dose pack 01/05/2015 01/05/2015 take as directed cyclobenzaprine 10 mg oral tablet 01/05/2015 02/09/2017 Take one tablet at bedtime as needed [...] Reflux Active 04/16/2014 Other constipation Active 01/07/2016 Gastroesophageal reflux disease without esophagitis Active 02/09/2017 Morbid obesity due to excess calories Active 02/09/2017 Primary osteoarthritis involving multiple joints Active 02/09/2017 Vital Signs Date Time BP-Sys(mm[Hg] BP-Karolyn(mm[Hg]) HR(bpm) RR(rpm) Temp WT HT HC BMI BSA BMI Percentile O2 Sat(%) 05/03/2017 8:23:00 AM 122 mmHg 76 mmHg 72 bpm 14 rpm 97.1 F 243.25 lbs 65 in 40.48 kg/m2 2.25 m2 97 % 02/09/2017 11:37:00 AM 128 mmHg 82 mmHg 60 bpm 16 rpm 97.1 F 249.375 lbs 65 in 41.4977 kg/m 2.2776 m 98 % 11/10/2016 8:25:00 AM 132 mmHg 70 mmHg [...] PANEL Reviewed 11/22/2016 12:00 AM Consult/Referral Reviewed 02/09/2017 12:00 AM ASSAY THYROID STIM HORMONE Reviewed 05/07/2012 12:00 AM COMPREHEN METABOLIC PANEL [...] X-RAY EXAM OF ABDOMEN Reviewed Results Summary Date and Description Results 11/10/2009 11:07 AM LDL [...] CELLS 1+ SQUAMOUS /HPFTRICHOMONAS NEGATIVE YEAST NEGATIVE 02/09/2017 12:05 PM TSH 0.750 uIU/mLCOLOR YELLOW APPEARANCE CLEAR SPEC GRAV 1.025 pH 5.5 PROTEIN TRACE GLUCOSE NEGATIVE mg/dLKETONE NEGATIVE BILIRUBIN SMALL BLOOD TRACE-INTACT NITRITE NEGATIVE LEUK SCREEN NEGATIVE WBC/HPF RARE RBC/ HPF 0-5 CASTS/LPF NEGATIVE /LPFCRYSTALS NEGATIVE MUCOUS THRDS 2++ BACTERIA FEW EPITH CELLS 1+ SQUAMOUS /HPFTRICHOMONAS NEGATIVE YEAST NEGATIVE CULT ORDERED YES History Of Immunizations Not available. History of [...] Hypertension, Benign Essential Jan 25 2011 8:15AM Gastroesophageal reflux disease without esophagitis 02/09/2017 Morbid obesity due to excess calories 02/09/2017 Primary osteoarthritis involving multiple joints 02/09/2017 Diabetes Mellitus, Type II Jun 09 2011 [...] 2016 8:27AM Hematuria Nov 22 2016 9:54AM Diabetes Mellitus, Type II Feb 09 2017 11:40AM Hypertension Feb 09 2017 11:40AM Gastroesophageal reflux disease without esophagitis Feb 09 2017 11:40AM Morbid obesity due to excess calories Feb 09 2017 11:40AM Other fatigue Feb 09 2017 11:40AM Primary osteoarthritis involving multiple joints Feb 09 2017 11:40AM Plantar fasciitis of left foot May 03 2017 8:25AM BMI 40.0-44.9, adult May 03 2017 8:25AM Payers Insurance Name Company Name Plan Name Plan Number Policy Number Policy Group Number Start Date [facility]BS [facility] [id number] Friday, 2000 HealthScope Benefits HealthScope Benefits [id number] Tuesday, 2009 [facility] Self Insurance Fund [facility] Self Insurance Fund [id number] N/ A [facility] [id number] N/A [place] [id number] N/A History of Encounters Visit Date Visit Type Provider 05/03/2017 Office visit Adriana Harris QUALITY CONTROL ENGINEERING TECHNICIAN 02/09/2017 Office visit Adriana Harris QUALITY CONTROL ENGINEERING TECHNICIAN 11/10/2016 Office visit Adriana Walker QUALITY CONTROL ENGINEERING TECHNICIAN 08/10/2016 Office visit Adriana Walker QUALITY CONTROL ENGINEERING TECHNICIAN 07/08/2016 Office visit Adriana Walker QUALITY CONTROL ENGINEERING TECHNICIAN 04/12/2016 Office visit Adriana Walker QUALITY CONTROL ENGINEERING TECHNICIAN 03/29/2016 Office visit Adriana Walker QUALITY CONTROL ENGINEERING TECHNICIAN 03/10/2016 Office visit Adriana Walker QUALITY CONTROL ENGINEERING TECHNICIAN 02/12/2016 Hospital Al Junior MD 01/27/2016 Office visit Al Junior MD 01/27/2016 Office visit 01/27/2016 Office visit Adriana Walker QUALITY CONTROL ENGINEERING TECHNICIAN 01/07/2016 Office visit Adriana Walker QUALITY CONTROL ENGINEERING TECHNICIAN 06/29/2015 Office visit Adriana Walker QUALITY CONTROL ENGINEERING TECHNICIAN 02/03/2015 Office visit Adriana Walker QUALITY CONTROL ENGINEERING TECHNICIAN 01/05/2015 Office visit Adriana Walker QUALITY CONTROL ENGINEERING TECHNICIAN 09/15/2014 [facility] Mulu Logan MD 07/23/2014 Office visit Monika Bob QUALITY CONTROL ENGINEERING TECHNICIAN 04/16/2014 Office visit Adriana Steven QUALITY CONTROL ENGINEERING TECHNICIAN 11/15/2013 Office visit Patrick Montano QUALITY CONTROL ENGINEERING TECHNICIAN 08/28/2013 Office visit Judith Whitaker MD 03/05/2013 Office visit Judith Whitaker MD 01/30/2013 Records Request Judith Whitaker MD 12/06/2012 Office visit Judith Whitaker MD 09/14/2012 Nurse visit Judith Whitaker MD 08/22/2012 Office visit Judith Whitaker MD 05/07/2012 Office visit Judith Whitaker MD 04/24/2012 Office visit Adriana Harris QUALITY CONTROL ENGINEERING TECHNICIAN 01/10/2012 Office visit Judith Whitaker MD 12/02/2011 Office visit Adriana Harris QUALITY CONTROL ENGINEERING TECHNICIAN 10/04/2011 Office visit Judith Whitaker MD 09/27/2011 Office visit Judith Whitaker MD 09/20/2011 Office visit Judith Whitaker MD 09/15/2011 Office visit Judith Whitaker MD 06/09/2011 Office visit Adriana Harris QUALITY CONTROL ENGINEERING TECHNICIAN 01/26/2011 Office visit Judith Whitaker MD 01/24/2011 Nurse visit Judith Whitaker MD 01/13/2011 Office visit Judtih Whitaker MD 04/26/2010 Office visit Magdy Blair [...]
--- OUTSIDE RECORDS SUMMARY | 2018-07-23 18:55 | XMS REPORT ---
Author Author Adriana Harris [facility] Address [address] [place] [id number] Care Team Providers Care First Aid Director Name Role Phone Adriana Harris PCP Unavailable [...] to excess calories Jul 08 2016 8:56AM Payers Insurance Name Company Name Plan Name Plan Number Policy Number Policy Group Number Start Date BCBS B[facility]bs [facility] [id number] Friday, 2008 HealthScope Benefits HealthScope Benefits [id number] Tuesday, 2009 [facility] Self Insurance Fund [facility] Self Insurance Fund [id number] N/ A [employer] Fri [employer] [id number] N/A Comp [place] Comp [place] [id number] N/A History of Encounters Visit Date Visit Type Provider 07/08/2016 Office visit Adriana Harris BIOLOGICAL CHEMIST 04/12/2016 Office visit Adriana Harris BIOLOGICAL CHEMIST 03/29/2016 Office visit Adriana Harris BIOLOGICAL CHEMIST 03/10/2016 Office visit Adriana Harris BIOLOGICAL CHEMIST 02/12/2016 Hospital Al Junior MD 01/27/2016 Office visit Al Junior MD 01/27/2016 Office visit 01/27/2016 Office visit Adriana Harris BIOLOGICAL CHEMIST 01/07/2016 Office visit Adriana Harris BIOLOGICAL CHEMIST 06/29/2015 Office visit Adriana Harris BIOLOGICAL CHEMIST 02/03/2015 Office visit Adriana Harris BIOLOGICAL CHEMIST 01/05/2015 Office visit Adriana Harris BIOLOGICAL CHEMIST 09/15/2014 [facility] Mulu Logan MD 07/23/2014 Office visit Monika Bob BIOLOGICAL CHEMIST 04/16/2014 Office visit Adriana Harris BIOLOGICAL CHEMIST 11/15/2013 Office visit Patrick Montano BIOLOGICAL CHEMIST 08/28/2013 Office visit Judith Whitaker MD 03/05/2013 Office visit Judith Whitaker MD 01/30/2013 Records Request Judith Whitaker MD 12/06/2012 Office visit Judith Whitaker MD 09/14/2012 Nurse visit Judith Whitaker MD 08/22/2012 Office visit Judith Whitaker MD 05/07/2012 Office visit Judith Whitaker MD 04/24/2012 Office visit Adriana Harris APRN 01/10/2012 Office visit Judith Whiatker MD 12/02/2011 Office visit Adriana Harris BIOLOGICAL CHEMIST 10/04/2011 Office visit Judith Whitaker MD 09/27/2011 Office visit Judith Whitaker MD 09/20/2011 Office visit Judith Whitaker MD 09/15/2011 Office visit Judith Whitaker MD 06/09/2011 Office visit Adriana Harris BIOLOGICAL CHEMIST 01/26/2011 Office visit Judith Whitaker MD 01/24/2011 [...] visit Magdy Blair DO 08/13/2009 Office visit Juidth Whitaker MD 08/13/2009 Laboratory Judith Whitaker MD
--- OUTSIDE RECORDS SUMMARY | 2018-07-23 18:57 | XMS REPORT ---
Author Author Adriana Harris [facility] Address [address] [place] [phone] Care Team Providers Care Library Manager Name Role Phone Adriana Harris PCP Unavailable [...] Policy Number Policy Group Number [id number] Friday, 2008 HealthScope Benefits HealthScope Benefits [id number] Tuesday, 2009 [facility] Self Insurance Fund [facility] Self Insurance [facility] [id number] N/ A [facility] Law [facility] Law [facility] [id number] N/A History of Encounters Visit Date Visit Type Provider 04/12/2016 Office visit Adriana Harris PARK RANGER 03/29/2016 Office visit Adriana Harris PARK RANGER 03/10/2016 Office visit Adriana Harris PARK RANGER 02/12/2016 Hospital Al Junior MD 01/27/2016 Office visit Al Junior MD 01/27/2016 Office visit 01/27/2016 Office visit Adriana Harris PARK RANGER 01/07/2016 Office visit Adriana Harris PARK RANGER 06/29/2015 Office visit Adriana Harris PARK RANGER 02/03/2015 Office visit Adriana Harris PARK RANGER 01/05/2015 Office visit Adriana Harris PARK RANGER 09/15/2014 [facility] Mulu Logan MD 07/23/2014 Office visit Monikajarrell Bob PARK RANGER 04/16/2014 Office visit Adriana Harris PARK RANGER 11/15/2013 Office visit Patrick Montano PARK RANGER 08/28/2013 Office visit Judith Whitaker MD 03/05/2013 Office visit Judith Whitaker MD 01/30/2013 Records Request Judith Whitaker MD 12/06/2012 Office visit Judith Whitaker MD 09/14/2012 Nurse visit Judith Whitaker MD 08/22/2012 Office visit Judith Whitaker MD 05/07/2012 Office visit Judith Whitaker MD 04/24/2012 Office visit Adriana Harris PARK RANGER 01/10/2012 Office visit Judith Whitaker MD 12/02/2011 Office visit Adriana Harris PARK RANGER 10/04/2011 Office visit Judith Whitaker MD 09/27/2011 Office visit Judith Whitaker MD 09/20/2011 Office visit Judith Whitaker MD 09/15/2011 Office visit Judith Whitaker MD 06/09/2011 Office visit Adriana Harris PARK RANGER 01/26/2011 Office visit Judith Whitaker MD 01/24/2011 Nurse visit Judith Whitaker MD 01/13/2011 Office visit Judith Whitaker MD 04/26/2010 Office visit Magdy Blair DO 04/21/2010 Laboratory Neto Downs MD 04/21/2010 Laboratory Neto Downs MD 04/21/2010 [facility] Neto Downs MD 01/28/2010 Office visit Magdy Blair DO 01/07/2010 Office visit Magdy Blair DO 01/01/2010 Office visit Amber HANNA 11/10/2009 Office visit Magdy Blair DO 08/13/2009 Office visit Judith Whitaker MD 08/13/2009 Laboratory Judith Whitaker MD
--- OUTSIDE RECORDS SUMMARY | 2018-07-23 18:58 | XMS REPORT ---
Author Author Al Junior [facility] Address [address] [place] [id number] Care Team Providers Care Fitness Worker Name Role Phone Al Junior PCP Unavailable Allergies and Adverse Reactions Name Reaction Notes lisinopril cough Plan of Treatment Planned Activity Comments Planned Date Planned Time Plan/Goal COMPLETE CBC W/AUTO DIFF WBC 01/07/2016 12:00 AM MAMMOGRAM BOTH BREASTS 01/27/2016 12:00 AM COMPREHEN METABOLIC PANEL 12/06/2012 12:00 [...] per day hydrocodone-acetaminophen 5-325 mg oral tablet 06/29/2015 take 1 tablet by oral route every 6 hours as needed for pain Benicar HCT 20-12.5 mg oral tablet 12/14/2015 [...] the morning and evening for 30 days Name Start Date Expiration [...] oral route once daily for 30 days Discontinued Name Start Date [...] morning and evening meals for 30 days Gmoez 5-40 mg oral tablet 02/11/2010 04/26/2010 take [...] HC BMI BSA BMI Percentile O2 Sat(%) 01/27/2016 2:52:00 PM 150 mmHg 86 mmHg [...] 12:00 AM CYTOPATH C/V THIN LAYER Reviewed 12/02/2011 12:00 AM INFLUENZA A/B AG [...] neg WBC Est Ur Ql Strip neg History Of Immunizations Not available. History of [...] for breast cancer Jan 27 2016 9:04AM Payers Insurance Name Company Name Plan Name Plan Number Policy Number Policy Group Number Start Date BCBS [facility] [id number] Friday, 2008 HealthScope Benefits HealthScope Benefits [id number] Tuesday, 2009 [facility] Self Insurance Fund [facility] Self Insurance Fund [id number] N/ A [employer] Fri [employer] [id number] N/A History of Encounters Visit Date Visit Type Provider 01/27/2016 Office visit Al Junior MD 01/27/2016 Office visit 01/27/2016 Office visit Adriana Harris NURSE CONSULTANT 01/07/2016 Office visit Adriana Harris NURSE CONSULTANT 06/29/2015 Office visit Adriana Harris NURSE CONSULTANT 02/03/2015 Office visit Adriana Harris NURSE CONSULTANT 01/05/2015 Office visit Adriana Harris NURSE CONSULTANT 09/15/2014 [facility] Mulu Logan MD 07/23/2014 Office visit Monika Andrea Bob NURSE CONSULTANT 04/16/2014 Office visit Adriana Steven NURSE CONSULTANT 11/15/2013 Office visit Patrick Dusty NURSE CONSULTANT 08/28/2013 Office visit Judith Whitaker MD 03/05/2013 Office visit Judith Whitaker MD 01/30/2013 Records Request Judith Whitaker MD 12/06/2012 Office visit Judith Whitaker MD 09/14/2012 Nurse visit Judith Whitaker MD 08/22/2012 Office visit Judith Whitaker MD 05/07/2012 Office visit Judith Whitaker MD 04/24/2012 Office visit Adriana Harris NURSE CONSULTANT 01/10/2012 Office visit Judith Whitaker MD 12/02/2011 Office visit Adriana Harris NURSE CONSULTANT 10/04/2011 Office visit Judith Whitaker MD 09/27/2011 Office visit Judith Whitaker MD 09/20/2011 Office visit Judith Whitaker MD 09/15/2011 Office visit Judith Whitaker MD 06/09/2011 Office visit Adriana Harris NURSE CONSULTANT 01/26/2011 Office visit Judith Whitaker MD 01/24/2011 [...]
--- OUTSIDE RECORDS SUMMARY | 2018-07-23 19:00 | XMS REPORT ---
Author Author Adriana Harris Organization [facility] Address [address] [place] [phone] Care Team Providers Care Program Dir Name Role Phone Adriana Harris PCP Unavailable [...] BY ORAL ROUTE ONCE DAILY AT BEDTIME phentermine 37.5 mg oral tablet 02/09/2017 03/11/2017 take 1 tablet (37.5 mg) by oral route once daily before breakfast for 30 days pantoprazole 40 mg oral tablet,delayed release (DR/EC) 02/09/2017 take 1 tablet (40 mg) by oral route once daily hydrocodone-acetaminophen 5-325 mg oral tablet 02/09/2017 take 1 tablet by oral route daily as needed Name Start Date Expiration Date SIG Comments [...] HC BMI BSA BMI Percentile O2 Sat(%) 02/09/2017 11:37:00 AM 128 mmHg 82 mmHg 60 bpm 16 rpm 97.1 F 249.375 lbs 65 in 41.50 kg/m2 2.28 m2 98 % 11/10/2016 8:25:00 AM 132 mmHg 70 mmHg 74 bpm 18 rpm 97.7 F 237.25 lbs 64 in 40.7235 kg/m 2.2044 m 98 % 08/10/2016 2:39:00 PM 126 mmHg 64 mmHg 60 bpm 18 rpm 93.6 F 235.25 lbs 64 in 40.38 kg/m2 2.20 m2 96 % 07/08/2016 8:52:00 AM 128 mmHg 86 mmHg 57 bpm 18 rpm 98.5 F 254.375 lbs 65 in 42.3298 kg/m 2.3003 m 96 % 04/12/2016 3:21:00 PM 132 mmHg [...] F 270 lbs 65 in 44.9299 kg/m 2.37 m2 Social History Name Description Comments [...] 02/09/2017 12:00 AM ASSAY THYROID STIM HORMONE Returned 05/07/2012 12:00 AM COMPREHEN METABOLIC PANEL [...] 13.10 g/dLHCT 40.20 %MCV 91.0 fLMCH 29.80 pgHC 32.60 g/dLRDW SD 43 RDW CV 12.80 [...] 4.40 HGB 13.10 g/dLHCT 39.70 %MCV 90.0 fLH 29.80 pgHC 33.0 g/dLRDW SD 43 RDW CV 13.10 [...] YEAST NEGATIVE 02/09/2017 12:05 PM TSH 0.750 uIU/mL History Of Immunizations Not available. History of [...] involving multiple joints Feb 09 2017 11:40AM Payers Insurance Name Company Name Plan Name Plan Number Policy Number Policy Group Number Start Date BCBS [facility] [id number] Friday, 2000 HealthScope Benefits HealthScope Benefits [id number] Tuesday, 2009 [facility] Self Insurance Fund [facility] Self Insurance Fund [id number] N/ A [employer] [facility] [employer] [id number] N/A Comp [place] Comp [place] [id number] N/A History of Encounters Visit Date Visit Type Provider 02/09/2017 Office visit Adriana Harris FIRE RANGER 11/10/2016 Office visit Adriana Harris FIRE RANGER 08/10/2016 Office visit Adriana Harris FIRE RANGER 07/08/2016 Office visit Adriana Harris FIRE RANGER 04/12/2016 Office visit Adriana Harris FIRE RANGER 03/29/2016 Office visit Adriana Harris FIRE RANGER 03/10/2016 Office visit Adriana Harris FIRE RANGER 02/12/2016 Hospital Al Junior MD 01/27/2016 Office visit Al Junior MD 01/27/2016 Office visit 01/27/2016 Office visit Adriana Harris FIRE RANGER 01/07/2016 Office visit Adriana Harris FIRE RANGER 06/29/2015 Office visit Adriana Harris FIRE RANGER 02/03/2015 Office visit Adriana Harris FIRE RANGER 01/05/2015 Office visit Adriana Harris FIRE RANGER 09/15/2014 [facility] Mulu Logan MD 07/23/2014 Office visit Monika Mendez Paulino FIRE RANGER 04/16/2014 Office visit Adriana Harris FIRE RANGER 11/15/2013 Office visit Patrick Montano FIRE RANGER 08/28/2013 Office visit Judith Whitaker MD 03/05/2013 Office visit Judith Whitaker MD 01/30/2013 Records Request Judith Whitaker MD 12/06/2012 Office visit Judith Whitaker MD 09/14/2012 Nurse visit Judith Whitaker MD 08/22/2012 Office visit Judith Whitaker MD 05/07/2012 Office visit Judith Whitaker MD 04/24/2012 Office visit Adriana Harris FIRE RANGER 01/10/2012 Office visit Judith Whitaker MD 12/02/2011 Office visit Adriana Harris FIRE RANGER 10/04/2011 Office visit Judith Whitaker MD 09/27/2011 Office visit Judith Whitaker MD 09/20/2011 Office visit Judith Whitaker MD 09/15/2011 Office visit Judith Whitaker MD 06/09/2011 Office visit Adriana Harris FIRE RANGER 01/26/2011 Office visit Judith Whitaker MD 01/24/2011 Nurse visit Judith Whitaker MD 01/13/2011 Office visit Judith Whitaker MD 04/26/2010 Office visit Magdy Blair DO 04/21/2010 Laboratory Neto Downs MD 04/21/2010 Laboratory Neto Downs MD 04/21/2010 [facility] Neto Downs MD 01/28/2010 Office visit Magdy Blair DO 01/07/2010 Office visit Magdy Blair DO 01/01/2010 Office visit Amber HANNA 11/10/2009 Office visit Magdy Blair DO 08/13/2009 Office visit Judith Whitaker MD 08/13/2009 Laboratory Judith Whitaker MD
--- OUTSIDE RECORDS SUMMARY | 2018-07-23 19:01 | XMS REPORT ---
Author Author Adriana Harris [facility] Address [address] [place] [phone] Care Team Providers Care Paint [employer] Name Role Phone Adriana Harris PCP Unavailable [...] 4++++SQUAMOUS / HPFTRICHOMONAS NEGATIVE YEAST NEGATIVE 03/29/2016 3:02 PM GLUCOSE 99.0 mg/dLSODIUM 144.0 [...] 2016 3:24PM Hematuria Mar 23 2016 9:49AM Flank pain Mar 29 2016 2:29PM Acute nonintractable headache, unspecified headache type Mar 29 2016 2:29PM Fever, unspecified Mar 29 2016 2:29PM Payers Insurance Name Company Name Plan Name Plan Number Policy Number Policy Group Number Start Date BCBS [place] [id number] Friday, 2008 HealthScope Benefits HealthScope Benefits [id number] Tuesday, 2009 [facility] Self Insurance Fund [facility] Self Insurance [facility] [id number] N/ A Spigarelli Law [facility] Law Firm [id number] N/A History of Encounters Visit Date Visit Type Provider 03/29/2016 Office visit Adriana Harris SALES REPRESENTATIVE METALS 03/10/2016 Office visit Adriana Harris SALES REPRESENTATIVE METALS 02/12/2016 Hospital Al Junior MD 01/27/2016 Office visit Al Junior MD 01/27/2016 Office visit 01/27/2016 Office visit Adriana Harris SALES REPRESENTATIVE METALS 01/07/2016 Office visit Adriana Harris SALES REPRESENTATIVE METALS 06/29/2015 Office visit Adriana Harris SALES REPRESENTATIVE METALS 02/03/2015 Office visit Adriana Harris SALES REPRESENTATIVE METALS 01/05/2015 Office visit Adriana Harris SALES REPRESENTATIVE METALS 09/15/2014 [facility] Mulu Logan MD 07/23/2014 Office visit Monika Bob SALES REPRESENTATIVE METALS 04/16/2014 Office visit Adriana Harris SALES REPRESENTATIVE METALS 11/15/2013 Office visit Patrick Montano SALES REPRESENTATIVE METALS 08/28/2013 Office visit Judith Whitaker MD 03/05/2013 Office visit Judith Whitaker MD 01/30/2013 Records Request Judith Whitaker MD 12/06/2012 Office visit Judith Whitaker MD 09/14/2012 Nurse visit Judith Whitaker MD 08/22/2012 Office visit Judith Whitaker MD 05/07/2012 Office visit Judith Whitaker MD 04/24/2012 Office visit Adriana Harris SALES REPRESENTATIVE METALS 01/10/2012 Office visit Judith Whitaker MD 12/02/2011 Office visit Adriana Harris SALES REPRESENTATIVE METALS 10/04/2011 Office visit Judith Whitaker MD 09/27/2011 Office visit Judith Whitaker MD 09/20/2011 Office visit Judith Whitaker MD 09/15/2011 Office visit Judith Whitaker MD 06/09/2011 Office visit Adriana Harris SALES REPRESENTATIVE METALS 01/26/2011 Office visit Judith Whitaker MD 01/24/2011 Nurse visit Judith Whitaker MD 01/13/2011 Office visit Judith Whitaker MD 04/26/2010 Office visit Magdy Blair DO 04/21/2010 Laboratory Neto Downs MD 04/21/2010 Laboratory Neto Downs MD 04/21/2010 [facility] Neto Downs MD 01/28/2010 Office visit Magdy Blair DO 01/07/2010 Office visit Magdy Blair DO 01/01/2010 Office visit Amber HANNA 11/10/2009 Office visit Magdy Blair DO 08/13/2009 Office visit Judith Whitaker MD 08/13/2009 Laboratory Judith Whitaker MD
--- OUTSIDE RECORDS SUMMARY | 2018-07-23 19:02 | XMS REPORT ---
Author Author Adriana Harris [facility] Address [address] [place] [phone] Care Team Providers Care Block Hand Name Role Phone Adriana Harris PCP Unavailable [...] route every 12 hours for 7 days Diflucan 150 mg oral tablet 03/31/2016 take 1 tablet (150 mg) by oral route once Name Start Date Expiration Date SIG Comments [...] Number Policy Group Number Start Date [facility] [id number] Friday, 2008 HealthScope Benefits HealthScope Benefits [id number] Tuesday, 2009 [facility] Self Insurance Fund [facility] Self Insurance Fund [id number] N/ A Spig[employer] [id number] N/A History of Encounters Visit Date Visit Type Provider 03/29/2016 Office visit Adriana Harris CRANE FOLLOWER 03/10/2016 Office visit Adriana Harris CRANE FOLLOWER 02/12/2016 [facility] Al Junior MD 01/27/2016 Office visit Al Junior MD 01/27/2016 Office visit 01/27/2016 Office visit Adriana Harris CRANE FOLLOWER 01/07/2016 Office visit Adriana Harris CRANE FOLLOWER 06/29/2015 Office visit Adriana Harris CRANE FOLLOWER 02/03/2015 Office visit Adriana Harris CRANE FOLLOWER 01/05/2015 Office visit Adriana Harris CRANE FOLLOWER 09/15/2014 [facility] Mulu Logan MD 07/23/2014 Office visit Monika Bob CRANE FOLLOWER 04/16/2014 Office visit Adriana Harris CRANE FOLLOWER 11/15/2013 Office visit Patrick Montano CRANE FOLLOWER 08/28/2013 Office visit Judith Whitaker MD 03/05/2013 Office visit Judith Whitaker MD 01/30/2013 Records Request Judith Whitaker MD 12/06/2012 Office visit Judith Whitaker MD 09/14/2012 Nurse visit Judith Whitaker MD 08/22/2012 Office visit Judith Whitaker MD 05/07/2012 Office visit Judith Whitaker MD 04/24/2012 Office visit Adriana Harris CRANE FOLLOWER 01/10/2012 Office visit Judith Whitaker MD 12/02/2011 Office visit Adriana Harris CRANE FOLLOWER 10/04/2011 Office visit Judith Whitaker MD 09/27/2011 [...]
--- OUTSIDE RECORDS SUMMARY | 2018-07-23 19:04 | XMS REPORT ---
Author Author Adriana Harris [facility] Address [address] [place] [phone] Care Team Providers Care Director Of Software Development Name Role Phone Adriana Harris PCP Unavailable [...] Group Number Start Date BCBS [employer] [employer] [place] [id number] Friday, 2008 HealthScope Benefits HealthScope Benefits [id number] Tuesday, 2009 [facility] Self Insurance Fund [facility] Self Insurance [facility] [id number] N/ A Spig[employer]lli Law [facility] Law Firm [id number] N/A History of Encounters Visit Date Visit Type Provider 03/29/2016 Office visit Adriana Harris SENIOR COMMUNICATIONS SPECIALIST 03/10/2016 Office visit Adriana Harris SENIOR COMMUNICATIONS SPECIALIST 02/12/2016 Hospital Al Junior MD 01/27/2016 Office visit Al Junior MD 01/27/2016 Office visit 01/27/2016 Office visit Adriana Harris SENIOR COMMUNICATIONS SPECIALIST 01/07/2016 Office visit Adriana Harris SENIOR COMMUNICATIONS SPECIALIST 06/29/2015 Office visit Adriana Harris SENIOR COMMUNICATIONS SPECIALIST 02/03/2015 Office visit Adriana Harris SENIOR COMMUNICATIONS SPECIALIST 01/05/2015 Office visit Adriana Harris SENIOR COMMUNICATIONS SPECIALIST 09/15/2014 [facility] Mulu Logan MD 07/23/2014 Office visit Monika Bob SENIOR COMMUNICATIONS SPECIALIST 04/16/2014 Office visit Adriana Harris SENIOR COMMUNICATIONS SPECIALIST 11/15/2013 Office visit Patrick Montano SENIOR COMMUNICATIONS SPECIALIST 08/28/2013 Office visit Judith Whitaker MD 03/05/2013 Office visit Judith Whitaker MD 01/30/2013 Records Request Judith Whitaker MD 12/06/2012 Office visit Judith Whitaker MD 09/14/2012 Nurse visit Judith Whitaker MD 08/22/2012 Office visit Judith Whitaker MD 05/07/2012 Office visit Judith Whitaker MD 04/24/2012 Office visit Adriana Harris SENIOR COMMUNICATIONS SPECIALIST 01/10/2012 Office visit Judith Whitaker MD 12/02/2011 Office visit Adriana Harris SENIOR COMMUNICATIONS SPECIALIST 10/04/2011 Office visit Judith Whiatker MD 09/27/2011 Office visit Judith Whitaker MD 09/20/2011 Office visit Judith Whitaker MD 09/15/2011 Office visit Judith Whitaker MD 06/09/2011 Office visit Adriana Harris SENIOR COMMUNICATIONS SPECIALIST 01/26/2011 Office visit Judith Whitaker MD 01/24/2011 Nurse visit Judith Whitaker MD 01/13/2011 Office visit Judith Whitaker MD 04/26/2010 Office visit Magdy Blair DO 04/21/2010 Laboratory Neto Downs MD 04/21/2010 Laboratory Neto Downs MD 04/21/2010 [facility] Neto Downs MD 01/28/2010 Office visit Magdy Blair DO 01/07/2010 Office visit Magdy Blair DO 01/01/2010 Office visit Amber HANNA 11/10/2009 Office visit Magdy Blair DO 08/13/2009 Office visit Judith Whitaker MD 08/13/2009 Laboratory Judith Whitaker MD
--- OUTSIDE RECORDS SUMMARY | 2018-07-23 19:05 | XMS REPORT ---
Author Author Adriana Harris Organization [facility] Address [address] [place] [phone] Care Team Providers Care Glue Clamp Operator Name Role Phone Adriana Harris PCP Unavailable [...] Returned 01/10/2012 12:00 AM COMPREHEN METABOLIC PANEL Reviewed 01/10/2012 12:00 AM LIPID PANEL Reviewed 01/10/2012 12:00 AM GLYCOSYLATED HEMOGLOBIN TEST Reviewed 01/10/2012 12:00 AM COMPLETE CBC W/AUTO DIFF WBC Reviewed 01/10/2012 12:00 AM HEPATIC FUNCTION PANEL Reviewed 01/10/2012 12:00 AM ASSAY OF LIPASE Reviewed 11/10/2016 8:57 AM URINALYSIS AUTO W/O SCOPE Reviewed 11/10/2016 12:00 AM COMPREHEN METABOLIC PANEL Returned 11/22/2016 12:00 AM Consult/Referral Reviewed 05/07/2012 12:00 [...] CELLS FEW SQUAMOUS /HPFTRICHOMONAS NEGATIVE YEAST NEGATIVE History Of [...] Number Policy Group Number Start Date BCBS [facility] [id number] Friday, 2000 HealthScope Benefits HealthScope Benefits [id number] Tuesday, 2009 [facility] Self Insurance Fund [facility] Self Insurance Fund [id number] N/ A Spig[employer]lli Law Fri [employer] [id number] N/A Comp [place] Comp [employer] [id number] N/A History of Encounters Visit Date Visit Type Provider 11/10/2016 Office visit Adriana Harris LOOM FIXER HELPER 08/10/2016 Office visit Adriana Harris LOOM FIXER HELPER 07/08/2016 Office visit Adriana Harris LOOM FIXER HELPER 04/12/2016 Office visit Adriana Harris LOOM FIXER HELPER 03/29/2016 Office visit Adriana Harris LOOM FIXER HELPER 03/10/2016 Office visit Adriana Harris LOOM FIXER HELPER 02/12/2016 [facility] [place] MD 01/27/2016 Office visit Al Junior MD 01/27/2016 Office visit 01/27/2016 Office visit Adriana Steven LOOM FIXER HELPER 01/07/2016 Office visit Adriana Harris LOOM FIXER HELPER 06/29/2015 Office visit Adriana Harris LOOM FIXER HELPER 02/03/2015 Office visit Adriana Harris LOOM FIXER HELPER 01/05/2015 Office visit Adriana Steven LOOM FIXER HELPER 09/15/2014 [facility] Mulu Logan MD 07/23/2014 Office visit Monika Bob LOOM FIXER HELPER 04/16/2014 Office visit Adriana Steven LOOM FIXER HELPER 11/15/2013 Office visit Patrick Dusty LOOM FIXER HELPER 08/28/2013 Office visit Judith Whitaker MD 03/05/2013 Office visit Judith Whitaker MD 01/30/2013 Records Request Judith Whitaker MD 12/06/2012 Office visit Judith Whitaker MD 09/14/2012 Nurse visit Judith Whitaker MD 08/22/2012 Office visit Judith Whitaker MD 05/07/2012 Office visit Judith Whitaker MD 04/24/2012 Office visit Adriana Harris LOOM FIXER HELPER 01/10/2012 Office visit Judith Whitaker MD 12/02/2011 Office visit Adriana Harris LOOM FIXER HELPER 10/04/2011 Office visit Judith Whitaker MD 09/27/2011 Office visit Judith Whitaker MD 09/20/2011 Office visit Judith Whitaker MD 09/15/2011 Office visit Judith Whitaker MD 06/09/2011 Office visit Adriana Harris LOOM FIXER HELPER 01/26/2011 Office visit Judith Whitaker MD 01/24/2011 Nurse visit Judith Whitaker MD 01/13/2011 Office visit Judith Whitaker MD 04/26/2010 Office visit Magdy Bliar DO 04/21/2010 Laboratory Neto Downs MD 04/21/2010 Laboratory Neto Downs MD 04/21/2010 Hospital Neto Downs MD 01/28/2010 Office visit Magdy Blair DO 01/07/2010 Office visit Magdy Blair DO 01/01/2010 Office visit Amber HANNA 11/10/2009 Office visit Magdy Blair DO 08/13/2009 Office visit Judith Whitaker MD 08/13/2009 Laboratory Judith Whitaker MD
--- OUTSIDE RECORDS SUMMARY | 2018-07-23 19:07 | XMS REPORT ---
Author Author Adriana Harris [facility] Address [address] [place] [phone] Care Team Providers Care Cosmetic Sales Assistant Name Role Phone Adriana Harris PCP Unavailable Allergies and Adverse Reactions Name Reaction Notes NO KNOWN DRUG ALLERGIES lisinopril cough Plan of Treatment Planned Activity Comments Planned Date Planned Time Plan/Goal X-RAY EXAM OF ABDOMEN 06/29/2015 12:00 AM COMPREHEN METABOLIC PANEL 12/06/2012 12:00 AM LIPID PANEL 12/06/2012 12:00 AM GLYCOSYLATED HEMOGLOBIN TEST 12/06/2012 12:00 AM COMPLETE CBC W/AUTO DIFF WBC 12/06/2012 12:00 AM COMPREHEN METABOLIC PANEL 10/14/2014 12:00 AM LIPID PANEL 10/14/2014 12:00 AM Medications Active Name Start Date Estimated Completion Date SIG Comments Benicar HCT 20-12.5 mg oral tablet 01/05/2015 07/04/2015 take 1 tablet by oral route once daily for 30 days Nexium 40 mg oral capsule,delayed release(DR/EC) 01/05/2015 take 1 capsule (40 mg) by oral route 2 times per day cyclobenzaprine 10 mg oral tablet 01/05/2015 Take one tablet at bedtime as needed diclofenac sodium 75 mg oral tablet,delayed release (DR/EC) 01/05/2015 take 1 tablet (75 mg) by oral route 2 times per day Miralax 17 gram/dose oral powder take 17 gram mixed with 8 oz. water, juice, soda, coffee or tea by oral route once daily hydrocodone-acetaminophen 5-325 mg oral tablet 06/29/2015 take [...] 1 tablet daily at HS as needed Lexapro 10 mg oral tablet 01/05/2015 02/04/2015 [...] HC BMI BSA BMI Percentile O2 Sat(%) 06/29/2015 3:09:00 PM 136 mmHg 74 mmHg [...] Chronic Back Pain Jun 29 2015 3:11PM Payers Insurance Name Company Name Plan Name Plan Number Policy Number Policy Group Number Start Date Bcbs [facility] [id number] Friday, 2008 HealthScope Benefits HealthScope Benefits [id number] Tuesday, 2009 [place] Self Insurance Fund [facility] Self Insurance Fund [id number] N/A [employer] [facility] [employer] [id number] N/A History of Encounters Visit Date Visit Type Provider 06/29/2015 Office visit Adriana Harris GREENS PICKER 02/03/2015 Office visit Adriana Harris GREENS PICKER 01/05/2015 Office visit Adriana Harris GREENS PICKER 09/15/2014 [facility] Mulu Logan MD 07/23/2014 Office visit Monika Bob GREENS PICKER 04/16/2014 Office visit Adriana Harris GREENS PICKER 11/15/2013 Office visit Patrick Montano GREENS PICKER 08/28/2013 Office visit Judith Whitaker MD 03/05/2013 Office visit Judith Whitaker MD 01/30/2013 Records Request Judith Whitaker MD 12/06/2012 Office visit Judith Whitaker MD 09/14/2012 Nurse visit Judith Whitaker MD 08/22/2012 Office visit Judith Whitaker MD 05/07/2012 Office visit Judith Whitaker MD 04/24/2012 Office visit Adriana Harris GREENS PICKER 01/10/2012 Office visit Judith Whitaker MD 12/02/2011 Office visit Adriana Harris GREENS PICKER 10/04/2011 Office visit Judith Whitaker MD 09/27/2011 Office visit Judith Whitaker MD 09/20/2011 Office visit Judith Whitaker MD 09/15/2011 Office visit Judith Whitaker MD 06/09/2011 Office visit Adriana Harris GREENS PICKER 01/26/2011 Office visit Judith Whitaker MD 01/24/2011 [...]
--- OUTSIDE RECORDS SUMMARY | 2018-07-23 19:09 | XMS REPORT ---
Author Author Adriana Harris Organization [facility] Address [address] [place] [phone] Care Team Providers Care Loading Rack Supervisor Name Role Phone Adriana Harris PCP Unavailable [...] WBC and automated differential) 12/06/2012 12:00 AM CMP (comprehensive metabolic panel) 10/14/2014 12:00 [...] 11/10/2016 12:00 AM COMPREHEN METABOLIC PANEL Returned 05/07/2012 12:00 AM COMPREHEN METABOLIC PANEL [...] AA 57 eGFR 47 eGFR AA* 57 History Of Immunizations Not available. History of [...] 2016 8:27AM Hematuria Nov 10 2016 8:27AM Payers Insurance Name Company Name Plan Name Plan Number Policy Number Policy Group Number Start Date [facility] [id number] Friday, 2000 HealthScope Benefits HealthScope Benefits [id number] Tuesday, 2009 [facility] Self Insurance Fund [facility] Self Insurance Fund [id number] N/ A Spigarelli Law [facility] [employer] [id number] N/A Comp [place] [id number] N/A History of Encounters Visit Date Visit Type Provider 11/10/2016 Office visit Adriana Harris ELECTROTYPE CASTER 08/10/2016 Office visit Adriana Harris ELECTROTYPE CASTER 07/08/2016 Office visit Adriana Harris ELECTROTYPE CASTER 04/12/2016 Office visit Adriana Harris ELECTROTYPE CASTER 03/29/2016 Office visit Adriana Harris ELECTROTYPE CASTER 03/10/2016 Office visit Adriana Harris ELECTROTYPE CASTER 02/12/2016 Hospital Al Junior MD 01/27/2016 Office visit Al Junior MD 01/27/2016 Office visit 01/27/2016 Office visit Adriana Harris ELECTROTYPE CASTER 01/07/2016 Office visit Adriana Harris ELECTROTYPE CASTER 06/29/2015 Office visit Adriana Harris ELECTROTYPE CASTER 02/03/2015 Office visit Adriana Harris ELECTROTYPE CASTER 01/05/2015 Office visit Adriana Harris ELECTROTYPE CASTER 09/15/2014 [facility] Mulu Logan MD 07/23/2014 Office visit Monika Bob ELECTROTYPE CASTER 04/16/2014 Office visit Adriana Harris ELECTROTYPE CASTER 11/15/2013 Office visit Patrick Montano APRN 08/28/2013 Office visit Judith Whitaker MD 03/05/2013 Office visit Judith Whitaker MD 01/30/2013 Records Request Judith Whitaker MD 12/06/2012 Office visit Judith Whitaker MD 09/14/2012 Nurse visit Judith Whitaker MD 08/22/2012 Office visit Judith Whitaker MD 05/07/2012 Office visit Judith Whitaker MD 04/24/2012 Office visit Adriana Harris ELECTROTYPE CASTER 01/10/2012 Office visit Judith Whitaker MD 12/02/2011 Office visit Adriana Harris ELECTROTYPE CASTER 10/04/2011 Office visit Judith Whitaker MD 09/27/2011 Office visit Judith Whitaker MD 09/20/2011 Office visit Judith Whitaker MD 09/15/2011 Office visit Judith Whitaker MD 06/09/2011 Office visit Adriana Harris ELECTROTYPE CASTER 01/26/2011 Office visit Judith Whitaker MD 01/24/2011 Nurse visit Judith Whitaker MD 01/13/2011 Office visit Judith Whitaker MD 04/26/2010 Office visit Magdy Blair DO 04/21/2010 Laboratory Neto Downs MD 04/21/2010 Laboratory Neto Downs MD 04/21/2010 [facility] Neto Downs MD 01/28/2010 Office visit Magdy Blair DO 01/07/2010 Office visit Magdy Blair DO 01/01/2010 Office visit Amber HANNA 11/10/2009 Office visit Magdy Blair DO 08/13/2009 Office visit Judith Whitaker MD 08/13/2009 Laboratory Judith Whitaker MD
--- OUTSIDE RECORDS SUMMARY | 2018-07-23 19:10 | XMS REPORT ---
Author Author Adriana Harris [facility] Address [address] [place] [phone] Care Team Providers Care Manager Community Outreach Name Role Phone Adriana Harris PCP Unavailable [...] Policy Group Number Start Date BCBS Bcbs [facility] [id number] Friday, 2008 HealthScope Benefits HealthScope Benefits [id number] Tuesday, 2009 [facility] Self Insurance Fund [facility] Self Insurance Fund [id number] N/ A [employer] [facility] [employer] Firm [id number] N/A History of Encounters Visit Date Visit Type Provider 03/10/2016 Office visit Adriana Harris SENIOR JAVA PROGRAMMER ANALYST 02/12/2016 [facility] Al Junior MD 01/27/2016 Office visit Al Junior MD 01/27/2016 Office visit 01/27/2016 Office visit Adriana Harris SENIOR JAVA PROGRAMMER ANALYST 01/07/2016 Office visit Adriana Harris SENIOR JAVA PROGRAMMER ANALYST 06/29/2015 Office visit Adriana Harris SENIOR JAVA PROGRAMMER ANALYST 02/03/2015 Office visit Adriana Harris SENIOR JAVA PROGRAMMER ANALYST 01/05/2015 Office visit Adriana Harris SENIOR JAVA PROGRAMMER ANALYST 09/15/2014 Hospital Mulu Logan MD 07/23/2014 Office visit Monika Bob SENIOR JAVA PROGRAMMER ANALYST 04/16/2014 Office visit Adriana Harris SENIOR JAVA PROGRAMMER ANALYST 11/15/2013 Office visit Patrick Montano SENIOR JAVA PROGRAMMER ANALYST 08/28/2013 Office visit Judith Whitaker MD 03/05/2013 Office visit Judith Whitaker MD 01/30/2013 Records Request Judith Whitaker MD 12/06/2012 Office visit Judith Whitaker MD 09/14/2012 Nurse visit Judith Whitaker MD 08/22/2012 Office visit Judith Whitaker MD 05/07/2012 Office visit Judith Whitaker MD 04/24/2012 Office visit Adriana Harris SENIOR JAVA PROGRAMMER ANALYST 01/10/2012 Office visit Judith Whitaker MD 12/02/2011 Office visit Adriana Harris SENIOR JAVA PROGRAMMER ANALYST 10/04/2011 Office visit Judith Whitaker MD 09/27/2011 Office visit Judith Whitaker MD 09/20/2011 Office visit Judith Whitaker MD 09/15/2011 Office visit Judith Whitaker MD 06/09/2011 Office visit Adriana Harris SENIOR JAVA PROGRAMMER ANALYST 01/26/2011 Office visit Judith Whitaker MD 01/24/2011 Nurse visit Judith Whitaker MD 01/13/2011 Office visit Judith Whitaker MD 04/26/2010 Office visit Magdy Blair DO 04/21/2010 Laboratory Neto Downs MD 04/21/2010 Laboratory Neto Downs MD 04/21/2010 [facility] Neto Downs MD 01/28/2010 Office visit Magdy Blair DO 01/07/2010 Office visit Magdy Blair DO 01/01/2010 Office visit Amber HANNA 11/10/2009 Office visit Magdy Blair DO 08/13/2009 Office visit Judith Whitaker MD 08/13/2009 Laboratory Judith Whitaker MD
--- OUTSIDE RECORDS SUMMARY | 2018-07-23 19:12 | XMS REPORT ---
Author Author Adriana Harris [facility] Address [address] [place] [phone] Care Team Providers Care Principal Web Developer Name Role Phone Adriana Harris PCP [...] by oral route once daily at bedtime Name Start Date Expiration Date SIG Comments [...] HC BMI BSA BMI Percentile O2 Sat(%) 01/07/2016 4:06:00 PM 120 mmHg 86 mmHg [...] 12:00 AM ASSAY THYROID STIM HORMONE Returned 12/02/2011 12:00 AM INFLUENZA A/B AG [...] 4:11PM Other constipation Jan 07 2016 4:11PM Payers Insurance Name Company Name Plan Name Plan Number Policy Number Policy Group Number Start Date BCBS Bcbs [facility] [id number] Friday, 2008 HealthScope Benefits HealthScope Benefits [id number] Tuesday, 2009 [facility] Self Insurance Fund [facility] Self Insurance Fund [id number] N/ A [employer] [facility] [employer] [id number] N/A History of Encounters Visit Date Visit Type Provider 01/07/2016 Office visit Adriana Harris LEATHER GOODS MAKER 06/29/2015 Office visit Adriana Harris LEATHER GOODS MAKER 02/03/2015 Office visit Adriana Harris LEATHER GOODS MAKER 01/05/2015 Office visit Adriana Harris LEATHER GOODS MAKER 09/15/2014 [facility] Mulu Logan MD 07/23/2014 Office visit Monika Bob LEATHER GOODS MAKER 04/16/2014 Office visit Adirana Harris LEATHER GOODS MAKER 11/15/2013 Office visit Patrick Montano LEATHER GOODS MAKER 08/28/2013 Office visit Judith Whitaker MD 03/05/2013 Office visit Judith Whitaker MD 01/30/2013 Records Request Judith Whitaker MD 12/06/2012 Office visit Judith Whitaker MD 09/14/2012 Nurse visit Judith Whitaker MD 08/22/2012 Office visit Judith Whitaker MD 05/07/2012 Office visit Judith Whitaker MD 04/24/2012 Office visit Adriana Harris LEATHER GOODS MAKER 01/10/2012 Office visit Judith Whitaker MD 12/02/2011 Office visit Adriana Harris LEATHER GOODS MAKER 10/04/2011 Office visit Judith Whitaker MD 09/27/2011 Office visit Judith Whitaker MD 09/20/2011 Office visit Judith Whitaker MD 09/15/2011 Office visit Judith Whitaker MD 06/09/2011 Office visit Adriana Harris APRN 01/26/2011 Office visit Judith Whitaker MD 01/24/2011 Nurse visit Judith Whitaker MD 01/13/2011 Office visit Judith Wihtaker MD 04/26/2010 Office visit Magdy Blair DO 04/21/2010 Laboratory Neto Downs MD 04/21/2010 Laboratory Neto Downs MD 04/21/2010 Hospital Neto Downs MD 01/28/2010 Office visit Magdy Blair DO 01/07/2010 Office visit Magdy Blair DO 01/01/2010 Office visit Amber HANNA 11/10/2009 Office visit Magdy Blair DO 08/13/2009 Office visit Judith Whitaker MD 08/13/2009 Laboratory Judith Whitaker MD
--- OUTSIDE RECORDS SUMMARY | 2018-07-23 19:14 | XMS REPORT ---
Author Author Adriana Harris Organization [facility] Address [address] [place] [phone] Care Team Providers Care Supervisor Policy Change Clerks Name Role Phone Adriana Harris PCP Unavailable [...] Number Policy Group Number Start Date BCBS [facility] [id number] Friday, 2000 HealthScope Benefits HealthScope Benefits [id number] Tuesday, 2009 [facility] Self Insurance Fund [facility] Self Insurance Fund [id number] N/ A [employer] [facility] [employer] [id number] N/A Comp [place] [id number] N/A History of Encounters Visit Date Visit Type Provider 11/10/2016 Office visit Adriana Harris BARIATRIC NURSE 08/10/2016 Office visit Adriana Harris BARIATRIC NURSE 07/08/2016 Office visit Adriana Harris BARIATRIC NURSE 04/12/2016 Office visit Adriana Harris BARIATRIC NURSE 03/29/2016 Office visit Adriana Harris BARIATRIC NURSE 03/10/2016 Office visit Adriana Harris BARIATRIC NURSE 02/12/2016 [facility] Al Junior MD 01/27/2016 Office visit Al Junior MD 01/27/2016 Office visit 01/27/2016 Office visit Adriana Harris BARIATRIC NURSE 01/07/2016 Office visit Adriana Harris BARIATRIC NURSE 06/29/2015 Office visit Adriana Harris BARIATRIC NURSE 02/03/2015 Office visit Adriana Harris BARIATRIC NURSE 01/05/2015 Office visit Adriana Harris BARIATRIC NURSE 09/15/2014 Hospital Mulu Logan MD 07/23/2014 Office visit Monika Bob BARIATRIC NURSE 04/16/2014 Office visit Adriana Harris BARIATRIC NURSE 11/15/2013 Office visit Patrick Montano BARIATRIC NURSE 08/28/2013 Office visit Judith Whitaker MD 03/05/2013 Office visit Judith Whitaker MD 01/30/2013 Records Request Judith Whitaker MD 12/06/2012 Office visit Judith Whitaker MD 09/14/2012 Nurse visit Judith Whitaker MD 08/22/2012 Office visit Judith Whitaker MD 05/07/2012 Office visit Judith Whitaker MD 04/24/2012 Office visit Adriana Harris BARIATRIC NURSE 01/10/2012 Office visit Judith Whitaker MD 12/02/2011 Office visit Adriana Harris BARIATRIC NURSE 10/04/2011 Office visit Judith Whitaker MD 09/27/2011 Office visit Judith Whitaker MD 09/20/2011 Office visit Judith Whitaker MD 09/15/2011 Office visit Judith Whitaker MD 06/09/2011 Office visit Adriana Harris BARIATRIC NURSE 01/26/2011 Office visit Judith Whitaker MD 01/24/2011 [...]
--- OUTSIDE RECORDS SUMMARY | 2018-07-23 19:16 | XMS REPORT ---
Author Author Adriana Harris [facility] Address [address] [place] [phone] Care Team Providers Care Group Underwriter Name Role Phone Adriana Harris PCP Unavailable [...] Policy Group Number Start Date BCBS Bcbs [facility] [id number] Friday, 2008 HealthScope Benefits HealthScope Benefits [id number] Tuesday, 2009 [facility] Self Insurance Fund [facility] Self Insurance Fund [id number] N/ A [employer] [facility] [employer] [id number] N/A History of Encounters Visit Date Visit Type Provider 01/07/2016 Office visit Adriana Harris PERSONAL INJURY ATTORNEY 06/29/2015 Office visit Adriana Harris PERSONAL INJURY ATTORNEY 02/03/2015 Office visit Adriana Harris PERSONAL INJURY ATTORNEY 01/05/2015 Office visit Adriana Harris PERSONAL INJURY ATTORNEY 09/15/2014 [facility] Mulu Logan MD 07/23/2014 Office visit Monika Bob PERSONAL INJURY ATTORNEY 04/16/2014 Office visit Adriana Harris PERSONAL INJURY ATTORNEY 11/15/2013 Office visit Patrick Montano PERSONAL INJURY ATTORNEY 08/28/2013 Office visit Judith Whitaker MD 03/05/2013 Office visit Judith Whitaker MD 01/30/2013 Records Request Judith Whitaker MD 12/06/2012 Office visit Judith Whitaker MD 09/14/2012 Nurse visit Judith Whitaker MD 08/22/2012 Office visit Judith Whitaker MD 05/07/2012 Office visit Judith Whitaker MD 04/24/2012 Office visit Adriana Harris PERSONAL INJURY ATTORNEY 01/10/2012 Office visit Judith Whitaker MD 12/02/2011 Office visit Adriana Harris PERSONAL INJURY ATTORNEY 10/04/2011 Office visit Judith Whitaker MD 09/27/2011 [...]
--- OUTSIDE RECORDS SUMMARY | 2018-07-23 19:18 | XMS REPORT ---
Author Author Adriana Harris [facility] Address [address] [place] [phone] Care Team Providers Care Filer Helper Name Role Phone Adriana Harris PCP Unavailable [...] 03/10/2016 12:00 AM URINALYSIS AUTO W/SCOPE Returned 12/02/2011 12:00 AM INFLUENZA A/B AG [...] unspecified fever cause Mar 10 2016 11:43AM Payers Insurance Name Company Name Plan Name Plan Number Policy Number Policy Group Number Start Date BCBS [employer] [place] [id number] Friday, 2008 HealthScope Benefits HealthScope Benefits [id number] Tuesday, 2009 [facility] Self Insurance Fund [facility] Self Insurance Fund [id number] N/ A [employer] Fri [employer] [id number] N/A History of Encounters Visit Date Visit Type Provider 03/10/2016 Office visit Adriana Harris PUBLISHING MANAGER 02/12/2016 [facility] Al Junior MD 01/27/2016 Office visit Al Junior MD 01/27/2016 Office visit 01/27/2016 Office visit Adriana Harris PUBLISHING MANAGER 01/07/2016 Office visit Adriana Harris PUBLISHING MANAGER 06/29/2015 Office visit Adriana Harris PUBLISHING MANAGER 02/03/2015 Office visit Adriana Harris PUBLISHING MANAGER 01/05/2015 Office visit Adriana Harris PUBLISHING MANAGER 09/15/2014 [facility] Mulu Logan MD 07/23/2014 Office visit Monika Bob PUBLISHING MANAGER 04/16/2014 Office visit Adriana Harris PUBLISHING MANAGER 11/15/2013 Office visit Patrick Montano PUBLISHING MANAGER 08/28/2013 Office visit Judith Whitaker MD 03/05/2013 Office visit Judith Whitaker MD 01/30/2013 Records Request Judith Whitaker MD 12/06/2012 Office visit Judith Whitaker MD 09/14/2012 Nurse visit Judith Whitaker MD 08/22/2012 Office visit Judith Whitaker MD 05/07/2012 Office visit Judith Whitaker MD 04/24/2012 Office visit Adriana Harris PUBLISHING MANAGER 01/10/2012 Office visit Judith Whitaker MD 12/02/2011 [...] MD 04/21/2010 Laboratory Neto Downs MD 04/21/2010 [facility] Neto Downs MD 01/28/2010 Office visit Magdy Blair DO 01/07/2010 Office visit Mgady lBair DO 01/01/2010 Office visit Amber HANNA 11/10/2009 Office visit Magdy Blair DO 08/13/2009 Office visit Judith Whitaker MD 08/13/2009 Laboratory Judith Whitaker MD
--- OUTSIDE RECORDS SUMMARY | 2018-07-23 19:20 | XMS REPORT ---
Author Author Adriana Harris Organization [facility] Address [address] [place] [phone] Care Team Providers Care Greensman Name Role Phone Adriana Harris PCP Unavailable [...] route every 4 hours as needed Zithromax Z-Pihllip 250 mg oral tablet 11/10/2009 11/15/2009 take [...] Group Number Start Date BCBS [facility] [id number] Friday, 2000 HealthScope Benefits HealthScope Benefits [id number] Tuesday, 2009 [facility] Self Insurance Fund [facility] Self Insurance Fund [id number] N/ A [employer] Fri [employer] [id number] N/A Comp [place] [id number] N/A History of Encounters Visit Date Visit Type Provider 11/10/2016 Office visit Adriana Harris WAXER 08/10/2016 Office visit Adriana Harris WAXER 07/08/2016 Office visit Adriana Harris WAXER 04/12/2016 Office visit Adriana Harris WAXER 03/29/2016 Office visit Adriana Harris WAXER 03/10/2016 Office visit Adriana Harris WAXER 02/12/2016 [facility] MD 01/27/2016 Office visit Al Junior MD 01/27/2016 Office visit 01/27/2016 Office visit Adriana Steven WAXER 01/07/2016 Office visit Adriana Harris WAXER 06/29/2015 Office visit Adriana Hraris WAXER 02/03/2015 Office visit Adriana Harris WAXER 01/05/2015 Office visit Adriana Steven WAXER 09/15/2014 [facility] Mulu Logan MD 07/23/2014 Office visit Monika Bob WAXER 04/16/2014 Office visit Adriana Steven WAXER 11/15/2013 Office visit Patrick Dusty WAXER 08/28/2013 Office visit Judith Whitaker MD 03/05/2013 Office visit Judith Whitaker MD 01/30/2013 Records Request Judith Whitaker MD 12/06/2012 Office visit Judith Whitaker MD 09/14/2012 Nurse visit Judith Whitaker MD 08/22/2012 Office visit Judith Whitaker MD 05/07/2012 Office visit Judith Whitaker MD 04/24/2012 Office visit Adriana Harris WAXER 01/10/2012 Office visit Judith Whitaker MD 12/02/2011 Office visit Adriana Harris WAXER 10/04/2011 Office visit Judith Whitaker MD 09/27/2011 Office visit Judith Whitaker MD 09/20/2011 Office visit Judith Whitaker MD 09/15/2011 Office visit Judith Whitaker MD 06/09/2011 Office visit Adriana Harris WAXER 01/26/2011 Office visit Judith Whitaker MD 01/24/2011 [...]
--- OUTSIDE RECORDS SUMMARY | 2018-07-23 19:21 | XMS REPORT ---
Author Author Al Junior [facility] Address [address] [place] [phone] Care Team Providers Care Forensic Economist Name Role Phone Al Junior PCP Unavailable [...] Colon Cancer Screening Jan 27 2016 2:53PM Payers Insurance Name Company Name Plan Name Plan Number Policy Number Policy Group Number Start Date BCBS [facility] [id number] Friday, 2008 HealthScope Benefits HealthScope Benefits [id number] Tuesday, 2009 [facility] Self Insurance Fund [place] Self Insurance Fund [id number] N/ A [employer] Fri [facility] [employer] Firm [id number] N/A History of Encounters Visit Date Visit Type Provider 01/27/2016 Office visit Al Junior MD 01/27/2016 Office visit 01/27/2016 Office visit Adriana Harirs AIRCRAFT CLEANER 01/07/2016 Office visit Adriana Harris AIRCRAFT CLEANER 06/29/2015 Office visit Adriana Harris AIRCRAFT CLEANER 02/03/2015 Office visit Adriana Harris AIRCRAFT CLEANER 01/05/2015 Office visit Adriana Harris AIRCRAFT CLEANER 09/15/2014 Hospital Mulu Logan MD 07/23/2014 Office visit Monika NKianna Bob AIRCRAFT CLEANER 04/16/2014 Office visit Adriana Steven AIRCRAFT CLEANER 11/15/2013 Office visit Patrick Montano AIRCRAFT CLEANER 08/28/2013 Office visit Judith Whitaker MD 03/05/2013 Office visit Judith Whitaker MD 01/30/2013 Records Request Judith Whitaker MD 12/06/2012 Office visit Judith Whitaker MD 09/14/2012 Nurse visit Judith Whitaker MD 08/22/2012 Office visit Judith Whitaker MD 05/07/2012 Office visit Judith Whitaker MD 04/24/2012 Office visit Adriana Harris AIRCRAFT CLEANER 01/10/2012 Office visit Judith Whitaker MD 12/02/2011 Office visit Adriana Harris AIRCRAFT CLEANER 10/04/2011 Office visit Judith Whitaker MD 09/27/2011 Office visit Judith Whitaker MD 09/20/2011 Office visit Judith Whitaker MD 09/15/2011 Office visit Judith Whitaker MD 06/09/2011 Office visit Adriana Harris AIRCRAFT CLEANER 01/26/2011 Office visit Judith Whitaker MD 01/24/2011 [...] visit Magdy Blair DO 08/13/2009 Office visit uJdith Whitaker MD 08/13/2009 Laboratory Judith Whitaker MD
--- OUTSIDE RECORDS SUMMARY | 2018-07-23 19:23 | XMS REPORT ---
Author Author [facility] Organization [facility] Address [address] [place] [phone] Care Team Providers Care Wire Strander Name Role Phone PCP Unavailable Allergies and [...] oral route 2 times per day hydrocodone-acetaminophen oral tablet 5-325 mg 02/03/2015 take [...] by oral route once daily Fluticasone Nasal Ethan, Suspension 50 mcg/Actuation 04/26/2010 inhale 2 sprays [...] tablet daily at HS as needed Lexapro oral tablet 10 mg 01/05/2015 02/04/2015 [...] Policy Number Policy Group Number Start Date [facility] [id number] Friday, 2008 HealthScope Benefits HealthScope Benefits [id number] Tuesday, 2009 [place] Self Insurance Fund [place] Self Insurance Fund [id number] N/A [employer] Fri [employer] [id number] N/A History of Encounters Visit Date Visit Type Provider 02/03/2015 Office visit Adriana Harris FASHION CONSULTANT 01/05/2015 Office visit Adriana Harris FASHION CONSULTANT 09/15/2014 Hospital Mulu Logan MD 07/23/2014 Office visit Monika Mendez Paulino FASHION CONSULTANT 04/16/2014 Office visit Adriana Harris FASHION CONSULTANT 11/15/2013 Office visit Patrick Dusty FASHION CONSULTANT 08/28/2013 Office visit Judith Whitaker MD 03/05/2013 Office visit Juidth Whitaker MD 01/30/2013 Records Request Judith Whitaker MD 12/06/2012 Office visit Judith Whitaker MD 09/14/2012 Nurse visit Judith Whitaker MD 08/22/2012 Office visit Judith Whitaker MD 05/07/2012 Office visit Judith Whitaker MD 04/24/2012 Office visit Adriana Harris FASHION CONSULTANT 01/10/2012 Office visit Judith Whitaker MD 12/02/2011 Office visit Adriana Harris FASHION CONSULTANT 10/04/2011 Office visit Judith Whitaker MD 09/27/2011 Office visit Judith Whitaker MD 09/20/2011 Office visit Judith Whitaker MD 09/15/2011 Office visit Judith Whitaker MD 06/09/2011 Office visit Adriana Harris FASHION CONSULTANT 01/26/2011 Office visit Judith Whitaker MD 01/24/2011 Nurse visit Judith Whitaker MD 01/13/2011 Office visit Judith Whitaker MD 04/26/2010 Office visit Magdy Blair DO 04/21/2010 Laboratory Neto Downs MD 04/21/2010 Laboratory Neto Downs MD 04/21/2010 [facility] Neto Downs MD 01/28/2010 Office visit Magdy Blair DO 01/07/2010 Office visit Magdy Blair DO 01/01/2010 Office visit Amber HANNA 11/10/2009 Office visit Magdy Blair DO 08/13/2009 Office visit Judith Whitaker MD 08/13/2009 Laboratory Judith Whitaker MD
--- OUTSIDE RECORDS SUMMARY | 2018-07-23 19:25 | XMS REPORT ---
Author Author Adriana Harris Organization [facility] Address [address] [place] [phone] Care Team Providers Care Financial Services Specialist Name Role Phone Adriana Harris PCP Unavailable Allergies and Adverse Reactions Name Reaction Notes lisinopril cough Plan of Treatment Planned Activity Comments Planned Date Planned Time Plan/Goal COMPLETE CBC W/AUTO DIFF WBC 01/07/2016 12:[address] ABD & PELV W/CONTRAST 03/21/2016 12:00 AM COMPREHEN METABOLIC PANEL 12/06/2012 12:00 [...] lower quadrant pain Mar 21 2016 3:24PM Payers Insurance Name Company Name Plan Name Plan Number Policy Number Policy Group Number Start Date BCBS Bcbs [facility] [id number] Friday, 2008 HealthScope Benefits HealthScope Benefits [id number] Tuesday, 2009 [facility] Self Insurance Fund [facility] Self Insurance Fund [id number] N/ A [employer] [facility] [employer] [id number] N/A History of Encounters Visit Date Visit Type Provider 03/10/2016 Office visit Adriana Harris CLINIC ADMINISTRATOR 02/12/2016 [facility] Al Junior MD 01/27/2016 Office visit Al Junior MD 01/27/2016 Office visit 01/27/2016 Office visit Adriana Harris CLINIC ADMINISTRATOR 01/07/2016 Office visit Adriana Harris CLINIC ADMINISTRATOR 06/29/2015 Office visit Adriana Harris CLINIC ADMINISTRATOR 02/03/2015 Office visit Adriana Harris CLINIC ADMINISTRATOR 01/05/2015 Office visit Adriana Harris CLINIC ADMINISTRATOR 09/15/2014 [facility] Mulu Logan MD 07/23/2014 Office visit Monika Bob CLINIC ADMINISTRATOR 04/16/2014 Office visit Adriana Harris CLINIC ADMINISTRATOR 11/15/2013 Office visit Patrick Montano CLINIC ADMINISTRATOR 08/28/2013 Office visit Judith Whitaker MD 03/05/2013 Office visit Judith Whitaker MD 01/30/2013 Records Request Judith Whitaker MD 12/06/2012 Office visit Judith Whitaker MD 09/14/2012 Nurse visit Judith Whitaker MD 08/22/2012 Office visit Judith Whitaker MD 05/07/2012 Office visit Judith Whitaker MD 04/24/2012 Office visit Adriana Harris CLINIC ADMINISTRATOR 01/10/2012 Office visit Judith Whitaker MD 12/02/2011 Office visit Adriana Harris CLINIC ADMINISTRATOR 10/04/2011 Office visit Judith Whitaker MD 09/27/2011 Office visit Judith Whitaker MD 09/20/2011 Office visit Judith Whitaker MD 09/15/2011 Office visit Judith Whitaker MD 06/09/2011 Office visit Adriana Harris CLINIC ADMINISTRATOR 01/26/2011 Office visit Judith Whitaker MD 01/24/2011 [...]
--- OUTSIDE RECORDS SUMMARY | 2018-07-23 19:26 | XMS REPORT ---
Author Author Adriana Harris [facility] Address [address] [place] [phone] Care Team Providers Care Box Shook Patcher Name Role Phone Adriana Harris PCP Unavailable [...] Policy Group Number Start Date BCBS Bcbs [facility] [id number] Friday, 2008 HealthScope Benefits HealthScope Benefits [id number] Tuesday, 2009 [facility] Self Insurance Fund [facility] Self Insurance Fund [id number] N/ A [employer] [facility] [employer] [id number] N/A History of Encounters Visit Date Visit Type Provider 01/07/2016 Office visit Adriana Harris NATIONAL SALES EXECUTIVE 06/29/2015 Office visit Adriana Harris NATIONAL SALES EXECUTIVE 02/03/2015 Office visit Adriana Harris NATIONAL SALES EXECUTIVE 01/05/2015 Office visit Adriana Harris NATIONAL SALES EXECUTIVE 09/15/2014 [facility] Mulu Logan MD 07/23/2014 Office visit Monika Bob NATIONAL SALES EXECUTIVE 04/16/2014 Office visit Adriana Harris NATIONAL SALES EXECUTIVE 11/15/2013 Office visit Patrick Montano NATIONAL SALES EXECUTIVE 08/28/2013 Office visit Judith Whitaker MD 03/05/2013 Office visit Judith Whitaker MD 01/30/2013 Records Request Judith Whitaker MD 12/06/2012 Office visit Judith Whitaker MD 09/14/2012 Nurse visit Judith Whitaker MD 08/22/2012 Office visit Judith Whitaker MD 05/07/2012 Office visit Judith Whitaker MD 04/24/2012 Office visit Adriana Harris NATIONAL SALES EXECUTIVE 01/10/2012 Office visit Judith Whitaker MD 12/02/2011 Office visit Adriana Harris NATIONAL SALES EXECUTIVE 10/04/2011 Office visit Judith Whitaker MD 09/27/2011 Office visit Judith Whitaker MD 09/20/2011 Office visit Judtih Whitaker MD 09/15/2011 Office visit Judith Whitaker [...]
--- OUTSIDE RECORDS SUMMARY | 2018-07-23 19:28 | XMS REPORT ---
Author Author Adriana Harris [facility] Address [address] [place] [phone] Care Team Providers Care Superintendent Radio Communications Name Role Phone Adriana Harris PCP Unavailable [...] Policy Group Number Start Date BCBS Bcbs [facility] [id number] Friday, 2008 HealthScope Benefits HealthScope Benefits [id number] Tuesday, 2009 [facility] Self Insurance Fund [facility] Self Insurance Fund [id number] N/ A [employer] [facility] [employer] [id number] N/A History of Encounters Visit Date Visit Type Provider 01/07/2016 Office visit Adriana Harris DISC RECORDIST 06/29/2015 Office visit Adriana Harris DISC RECORDIST 02/03/2015 Office visit Adriana Harris DISC RECORDIST 01/05/2015 Office visit Adriana Harris DISC RECORDIST 09/15/2014 [facility] Mulu Logan MD 07/23/2014 Office visit Monika Bob DISC RECORDIST 04/16/2014 Office visit Adriana Harris DISC RECORDIST 11/15/2013 Office visit Patrick Montano DISC RECORDIST 08/28/2013 Office visit Judith Whitaker MD 03/05/2013 Office visit Judith Whitaker MD 01/30/2013 Records Request Judith Whitaker MD 12/06/2012 Office visit Judith Whitaker MD 09/14/2012 Nurse visit Judith Whitaker MD 08/22/2012 Office visit Judith Whitaker MD 05/07/2012 Office visit Judith Whitaker MD 04/24/2012 Office visit Adriana Harris DISC RECORDIST 01/10/2012 Office visit Judith Whitaker MD 12/02/2011 Office visit Adriana Harris DISC RECORDIST 10/04/2011 Office visit Judith Whitaker MD 09/27/2011 [...]
--- OUTSIDE RECORDS SUMMARY | 2018-07-23 19:30 | XMS REPORT ---
Author Author Adriana Harris [facility] Address [address] [place] [phone] Care Team Providers Care Shipper Name Role Phone Adriana Harris PCP Unavailable [...] route once daily for 30 days hydrocodone-acetaminophen 5-325 mg oral tablet 06/07/2016 take [...] route every 12 hours for 7 days hydrochlorothiazide 12.5 mg oral tablet 04/13/2016 [...] Group Number Start Date BCBS [employer] [place] [id number] Friday, 2008 HealthScope Benefits HealthScope Benefits [id number] Tuesday, 2009 [facility] Self Insurance Fund [facility] Self Insurance Fund [id number] N/ A [employer] [facility] [employer] [id number] N/A Comp [place] [id number] N/A History of Encounters Visit Date Visit Type Provider 04/12/2016 Office visit Adriana Harris ANCILLARY SPECIALIST 03/29/2016 Office visit Adriana Harris ANCILLARY SPECIALIST 03/10/2016 Office visit Adriana Harris ANCILLARY SPECIALIST 02/12/2016 Hospital Al Junior MD 01/27/2016 Office visit Al Junior MD 01/27/2016 Office visit 01/27/2016 Office visit Adriana Harris ANCILLARY SPECIALIST 01/07/2016 Office visit Adriana Harris ANCILLARY SPECIALIST 06/29/2015 Office visit Adriana Harris ANCILLARY SPECIALIST 02/03/2015 Office visit Adriana Harris ANCILLARY SPECIALIST 01/05/2015 Office visit Adriana Harris ANCILLARY SPECIALIST 09/15/2014 Hospital Mulu Logan MD 07/23/2014 Office visit Monika Bob ANCILLARY SPECIALIST 04/16/2014 Office visit Adriana Harris ANCILLARY SPECIALIST 11/15/2013 Office visit Patrick Montano ANCILLARY SPECIALIST 08/28/2013 Office visit Judith Whitaker MD 03/05/2013 Office visit Judith Whitaker MD 01/30/2013 Records Request Judith Whitaker MD 12/06/2012 Office visit Judith Whitaker MD 09/14/2012 Nurse visit Judith Whitaker MD 08/22/2012 Office visit Judith Whitaker MD 05/07/2012 Office visit Judith Whitaker MD 04/24/2012 Office visit Adriana Harris ANCILLARY SPECIALIST 01/10/2012 Office visit Judith Whitaker MD 12/02/2011 Office visit Adriana Harris ANCILLARY SPECIALIST 10/04/2011 Office visit Judith Whitaker MD 09/27/2011 Office visit Judith Whitaker MD 09/20/2011 Office visit Judith Whitaker MD 09/15/2011 Office visit Judith Whitaker MD 06/09/2011 Office visit Adriana Harris ANCILLARY SPECIALIST 01/26/2011 Office visit Judith Whitaker MD 01/24/2011 Nurse visit Judith Whitaker MD 01/13/2011 Office visit Judith Whitaker MD 04/26/2010 Office visit Magdy Blair DO 04/21/2010 Laboratory Neto Downs MD 04/21/2010 Laboratory Neto Downs MD 04/21/2010 [facility] Neto Downs MD 01/28/2010 Office visit Magdy Blair DO 01/07/2010 Office visit Magdy Blair DO 01/01/2010 Office visit Amber HANNA 11/10/2009 Office visit Magdy Blair DO 08/13/2009 Office visit Judith Whitaker MD 08/13/2009 Laboratory Judith Whitaker MD
--- OUTSIDE RECORDS SUMMARY | 2018-07-23 19:32 | XMS REPORT ---
Author Author Adriana Harris Organization [facility] Address [address] [place] [id number] Care Team Providers Care Bed Spring Maker Name Role Phone Adriana Harris PCP Unavailable [...] TAKE 1 TABLET BY MOUTH EVERY DAY Name Start Date Expiration Date SIG Comments [...] Group Number Start Date BCBS [employer] [place] [id number] Friday, 2008 HealthScope Benefits HealthScope Benefits [id number] Tuesday, 2009 [facility] Self Insurance Fund [facility] Self Insurance Fund [id number] N/ A Active [employer] Law [facility] Active [employer] [id number] N/A History of Encounters Visit Date Visit Type Provider 01/07/2016 Office visit Adriana Harris CATTLE BRANDER 06/29/2015 Office visit Adriana Harris CATTLE BRANDER 02/03/2015 Office visit Adriana Harris CATTLE BRANDER 01/05/2015 Office visit Adriana Harris CATTLE BRANDER 09/15/2014 [facility] Mulu Logan MD 07/23/2014 Office visit Monika Bob CATTLE BRANDER 04/16/2014 Office visit Adriana Harris CATTLE BRANDER 11/15/2013 Office visit Patrick Montano CATTLE BRANDER 08/28/2013 Office visit Judith Whitaker MD 03/05/2013 Office visit Judith Whitaker MD 01/30/2013 Records Request Judith Whitaker MD 12/06/2012 Office visit Judith Whitaker MD 09/14/2012 Nurse visit Judith Whitaker MD 08/22/2012 Office visit Judith Whitaker MD 05/07/2012 Office visit Judith Whitaker MD 04/24/2012 Office visit Adriana Harris CATTLE BRANDER 01/10/2012 Office visit Judith Whitaker MD 12/02/2011 Office visit Adriana Harris CATTLE BRANDER 10/04/2011 Office visit Judith Whitaker MD 09/27/2011 [...]
--- OUTSIDE RECORDS SUMMARY | 2018-07-23 19:35 | XMS REPORT ---
Author Author [facility] Organization [facility] Address [address] [place] [phone] Care Team Providers Care Charge Rn Name Role Phone PCP Unavailable Allergies and [...] by oral route once daily Fluticasone Nasal [place], Suspension 50 mcg/Actuation 04/26/2010 inhale 2 sprays [...] Policy Number Policy Group Number Start Date [facility] [id number] Friday, 2008 HealthScope Benefits HealthScope Benefits [id number] Tuesday, 2009 State Self Insurance Fund State Self Insurance Fund [id number] N/A [employer] Fri [employer] [id number] N/A History of Encounters Visit Date Visit Type Provider 02/03/2015 Office visit Adriana Harris CAD APPLICATION SUPPORT SPECIALIST 01/05/2015 Office visit Adriana Harris CAD APPLICATION SUPPORT SPECIALIST 09/15/2014 Hospital Mulu Logan MD 07/23/2014 Office visit Monika Mendez Paulino CAD APPLICATION SUPPORT SPECIALIST 04/16/2014 Office visit Adriana Harris CAD APPLICATION SUPPORT SPECIALIST 11/15/2013 Office visit Patrick Dusty CAD APPLICATION SUPPORT SPECIALIST 08/28/2013 Office visit Judith Whitaker MD 03/05/2013 Office visit Judith Whitaker MD 01/30/2013 Records Request Judith Whitaker MD 12/06/2012 Office visit Judith Whitaker MD 09/14/2012 Nurse visit Judith Whitaker MD 08/22/2012 Office visit Judith Whitaker MD 05/07/2012 Office visit Judith Whitaker MD 04/24/2012 Office visit Adriana Harris CAD APPLICATION SUPPORT SPECIALIST 01/10/2012 Office visit Judith Whitaker MD 12/02/2011 Office visit Adriana Harris CAD APPLICATION SUPPORT SPECIALIST 10/04/2011 Office visit Judith Whitaker MD 09/27/2011 Office visit Judith Whitaker MD 09/20/2011 Office visit Judith Whitaker MD 09/15/2011 Office visit Judith Whitaker MD 06/09/2011 Office visit Adriana Harris CAD APPLICATION SUPPORT SPECIALIST 01/26/2011 Office visit Judith Whitaker MD 01/24/2011 Nurse visit Judith Whitaker MD 01/13/2011 Office visit Judith Whitaker MD 04/26/2010 Office visit Magdy Blair DO 04/21/2010 Laboratory Neto Downs MD 04/21/2010 Laboratory Neto Downs MD 04/21/2010 [facility] Neto Downs MD 01/28/2010 Office visit Magdy lBair DO 01/07/2010 Office visit Magdy Blair DO 01/01/2010 Office visit Amber HANNA 11/10/2009 Office visit Magdy Blair DO 08/13/2009 Office visit Judith Whitaker MD 08/13/2009 Laboratory Judith Whitaker MD
--- OUTSIDE RECORDS SUMMARY | 2018-07-23 19:39 | XMS REPORT ---
Author Author Adriana Harris Organization [facility] Address [address] [place] [phone] Care Team Providers Care Neighborhood Service Center Director Name Role Phone Adriana Harris PCP [...] Policy Number Policy Group Number Start Date [facility] [id number] Friday, 2000 HealthScope Benefits HealthScope Benefits [id number] Tuesday, 2009 [facility] Self Insurance Fund [facility] Self Insurance Fund [id number] N/ A [employer] [facility] [employer] [id number] N/A Comp [place] Comp [place] [id number] N/A History of Encounters Visit Date Visit Type Provider 11/10/2016 Office visit Adriana Harris COMMERCIAL HVAC TECHNICIAN 08/10/2016 Office visit Adriana Harris COMMERCIAL HVAC TECHNICIAN 07/08/2016 Office visit Adriana Harris COMMERCIAL HVAC TECHNICIAN 04/12/2016 Office visit Adriana Harris COMMERCIAL HVAC TECHNICIAN 03/29/2016 Office visit Adriana Harris COMMERCIAL HVAC TECHNICIAN 03/10/2016 Office visit Adriana Harris COMMERCIAL HVAC TECHNICIAN 02/12/2016 [facility] Al Junior MD 01/27/2016 Office visit Al Junior MD 01/27/2016 Office visit 01/27/2016 Office visit Adriana Harris COMMERCIAL HVAC TECHNICIAN 01/07/2016 Office visit Adriana Harris COMMERCIAL HVAC TECHNICIAN 06/29/2015 Office visit Adriana Harris COMMERCIAL HVAC TECHNICIAN 02/03/2015 Office visit Adriana Harris COMMERCIAL HVAC TECHNICIAN 01/05/2015 Office visit Adriana Harris COMMERCIAL HVAC TECHNICIAN 09/15/2014 [facility] Mulu Logan MD 07/23/2014 Office visit Monika Andrea Bob COMMERCIAL HVAC TECHNICIAN 04/16/2014 Office visit Adriana Steven COMMERCIAL HVAC TECHNICIAN 11/15/2013 Office visit Patrick Dusty COMMERCIAL HVAC TECHNICIAN 08/28/2013 Office visit Judith Whitaker MD 03/05/2013 Office visit Judith Whitaker MD 01/30/2013 Records Request Judith Whitaker MD 12/06/2012 Office visit Judith Whitaker MD 09/14/2012 Nurse visit Judith Whitaker MD 08/22/2012 Office visit Judith Whitaker MD 05/07/2012 Office visit Judith Whitaker MD 04/24/2012 Office visit Adriana Harris COMMERCIAL HVAC TECHNICIAN 01/10/2012 Office visit Judith Whitaker MD 12/02/2011 Office visit Adriana Harris COMMERCIAL HVAC TECHNICIAN 10/04/2011 Office visit Judith Whitaker MD 09/27/2011 Office visit Judith Whitaker MD 09/20/2011 Office visit Judith Whitaker MD 09/15/2011 Office visit Judith Whitaker MD 06/09/2011 Office visit Adriana Harris COMMERCIAL HVAC TECHNICIAN 01/26/2011 Office visit Judith Whitaker MD [...]
--- OUTSIDE RECORDS SUMMARY | 2018-07-23 19:41 | XMS REPORT ---
Author Author Adriana Harris [facility] Address [address] [place] [phone] Care Team Providers Care Hand Ii Tube Bender Name Role Phone Adriana Harris PCP Unavailable [...] every 6 hours as needed for pain Cipro 500 mg oral tablet 03/10/2016 03/17/2016 [...] 12.80 g/dLHCT 39.20 %MCV 88.0 fLMCH 28.60 pgHC 32.70 g/dLRDW CV 12.60 %MPV 9.60 fLPLT [...] 4.33 HGB 12.80 g/dLHCT 39.10 %MCV 90.0 fLH 29.60 pgHC 32.70 g/dLRDW CV 13.60 % MPV 9.60 [...] Policy Group Number Start Date BCBS Bcbs [facility] [id number] Friday, 2008 HealthScope Benefits HealthScope Benefits [id number] Tuesday, 2009 [facility] Self Insurance Fund [facility] Self Insurance Fund [id number] N/ A [employer] Formerly [facility] [employer] [id number] N/A History of Encounters Visit Date Visit Type Provider 03/10/2016 Office visit Adriana Harris COMMUNICATION ENGINEER 02/12/2016 [facility] Al Junior MD 01/27/2016 Office visit Al Junior MD 01/27/2016 Office visit 01/27/2016 Office visit Adriana Harris COMMUNICATION ENGINEER 01/07/2016 Office visit Adriana Harris COMMUNICATION ENGINEER 06/29/2015 Office visit Adriana Harris COMMUNICATION ENGINEER 02/03/2015 Office visit Adriana Harris COMMUNICATION ENGINEER 01/05/2015 Office visit Adriana Harris COMMUNICATION ENGINEER 09/15/2014 [facility] Mulu Logan MD 07/23/2014 Office visit Monika Bob COMMUNICATION ENGINEER 04/16/2014 Office visit Adriana Harris COMMUNICATION ENGINEER 11/15/2013 Office visit Patrick Montano COMMUNICATION ENGINEER 08/28/2013 Office visit Judith Whitaker MD 03/05/2013 Office visit Judith Whitaker MD 01/30/2013 Records Request Judith Whitaker MD 12/06/2012 Office visit Judith Whitaker MD 09/14/2012 Nurse visit Judith Whitaker MD 08/22/2012 Office visit Judith Whitaker MD 05/07/2012 Office visit Judith Whitaker MD 04/24/2012 Office visit Adriana Harris APRN 01/10/2012 Office visit Judith Whitaker MD 12/02/2011 Office visit Adriana Harris COMMUNICATION ENGINEER 10/04/2011 Office visit Judith Whitaker MD 09/27/2011 Office visit Judith Whitaker MD 09/20/2011 Office visit Judith Whitaker MD 09/15/2011 Office visit Judith Whitaker MD 06/09/2011 Office visit Adriana Harris COMMUNICATION ENGINEER 01/26/2011 Office visit Judith Whitaker MD 01/24/2011 [...]
--- OUTSIDE RECORDS SUMMARY | 2018-07-23 19:48 | XMS REPORT ---
Author Author Adriana Harris Organization [facility] Address [address] [place] [phone] Care Team Providers Care Regional Maintenance Manager Name Role Phone Adriana Harris PCP Unavailable Allergies and Adverse Reactions Name Reaction Notes lisinopril cough Plan of Treatment Planned Activity Comments Planned Date Planned Time Plan/Goal CBC With Auto Differential 01/07/2016 12:00 AM TSH 02/09/2017 12:00 AM Comprehensive Metabolic Panel 12/06/2012 12:00 [...] 4.40 HGB 13.10 g/dLHCT 39.70 %MCV 90.0 [facility] 29.80 pgHC 33.0 g/dLRDW SD 43 RDW [...] Number Policy Group Number Start Date BCBS [facility] [id number] Friday, 2000 HealthScope Benefits HealthScope Benefits [id number] Tuesday, 2009 [facility] Self Insurance Fund [facility] Self Insurance Fund [id number] N/ A [employer] [facility] [employer] [id number] N/A Comp [place] Comp [place] [id number] N/A History of Encounters Visit Date Visit Type Provider 02/09/2017 Office visit Adriana Harris SUPERVISOR WOUND 11/10/2016 Office visit Adriana Harris SUPERVISOR WOUND 08/10/2016 Office visit Adriana Harris SUPERVISOR WOUND 07/08/2016 Office visit Adriana Harris SUPERVISOR WOUND 04/12/2016 Office visit Adriana Harris SUPERVISOR WOUND 03/29/2016 Office visit Adriana Harris SUPERVISOR WOUND 03/10/2016 Office visit Adriana Harris SUPERVISOR WOUND 02/12/2016 Hospital Al Junior MD 01/27/2016 Office visit Al Junior MD 01/27/2016 Office visit 01/27/2016 Office visit Adriana Harris SUPERVISOR WOUND 01/07/2016 Office visit Adriana Harris SUPERVISOR WOUND 06/29/2015 Office visit Adriana Harris SUPERVISOR WOUND 02/03/2015 Office visit Adriana Harris SUPERVISOR WOUND 01/05/2015 Office visit Adriana Harris SUPERVISOR WOUND 09/15/2014 Hospital Mulu Logan MD 07/23/2014 Office visit Monika Bob SUPERVISOR WOUND 04/16/2014 Office visit Adriana Harris SUPERVISOR WOUND 11/15/2013 Office visit Patrick Montano SUPERVISOR WOUND 08/28/2013 Office visit Judith Whitaker MD 03/05/2013 Office visit Judith Whitaker MD 01/30/2013 Records Request Judith Whitaker MD 12/06/2012 Office visit Judith Whitaker MD 09/14/2012 Nurse visit Judith Whitaker MD 08/22/2012 Office visit Judith Whitaker MD 05/07/2012 Office visit Judith Whitaker MD 04/24/2012 Office visit Adriana Harris SUPERVISOR WOUND 01/10/2012 Office visit Judith Whitaker MD 12/02/2011 Office visit Adriana Harris SUPERVISOR WOUND 10/04/2011 Office visit Judith Whitaker MD 09/27/2011 Office visit Judith Whitaker MD 09/20/2011 Office visit Judith Whitaker MD 09/15/2011 Office visit Judith Whitaker MD 06/09/2011 Office visit Adriana Harris SUPERVISOR WOUND 01/26/2011 Office visit Judith Whitaker MD 01/24/2011 Nurse visit Judith Whitaker MD 01/13/2011 Office visit Judith Whitaker MD 04/26/2010 Office visit Magdy Blair DO 04/21/2010 Laboratory Neto Downs MD 04/21/2010 Laboratory Neto Downs MD 04/21/2010 [facility] Neto Downs MD 01/28/2010 Office visit Magdy Blair DO 01/07/2010 Office visit Magdy Blair DO 01/01/2010 Office visit Amber HANNA 11/10/2009 Office visit Magdy Blair DO 08/13/2009 Office visit Judith Whitaker MD 08/13/2009 Laboratory Judith Whitaker MD
--- OUTSIDE RECORDS SUMMARY | 2018-07-23 19:50 | XMS REPORT ---
Author Author Al Junior [facility] Address [address] [place] [phone] Care Team Providers Care Online Marketing Coordinator Name Role Phone Al Junior PCP Unavailable [...] 12:00 AM CYTOPATH C/V THIN LAYER Returned 12/02/2011 12:00 AM INFLUENZA A/B AG [...] Number Policy Group Number Start Date [facility] [id number] Friday, 2008 HealthScope Benefits HealthScope Benefits [id number] Tuesday, 2009 [facility] Self Insurance Fund [facility] Self Insurance Fund [id number] N/ A [facility] [employer] [facility] [id number] N/A History of Encounters Visit Date Visit Type Provider 01/27/2016 Office visit Al Junior MD 01/27/2016 Office visit 01/27/2016 Office visit Adriana Steven CLINICAL SPECIALIST VASCULAR 01/07/2016 Office visit Adriana Harris CLINICAL SPECIALIST VASCULAR 06/29/2015 Office visit Adriana Harris CLINICAL SPECIALIST VASCULAR 02/03/2015 Office visit Adriana Harris CLINICAL SPECIALIST VASCULAR 01/05/2015 Office visit Adriana Harris CLINICAL SPECIALIST VASCULAR 09/15/2014 [facility] Mulu Logan MD 07/23/2014 Office visit Monika Bob CLINICAL SPECIALIST VASCULAR 04/16/2014 Office visit Adriana Steven CLINICAL SPECIALIST VASCULAR 11/15/2013 Office visit Patrick Montano CLINICAL SPECIALIST VASCULAR 08/28/2013 Office visit Judith Whitaker MD 03/05/2013 Office visit Judith Whitaker MD 01/30/2013 Records Request Judith Whitaker MD 12/06/2012 Office visit Judith Whitaker MD 09/14/2012 Nurse visit Judith Whitaker MD 08/22/2012 Office visit Judith Whitaker MD 05/07/2012 Office visit Judith Whitaker MD 04/24/2012 Office visit Adriana Harris CLINICAL SPECIALIST VASCULAR 01/10/2012 Office visit Judith Whitaker MD 12/02/2011 Office visit Adriana Harris CLINICAL SPECIALIST VASCULAR 10/04/2011 Office visit Judith Whitaker MD 09/27/2011 Office visit Judith Whitaker MD 09/20/2011 Office visit Judith Whitaker MD 09/15/2011 Office visit Judith Whitaker MD 06/09/2011 Office visit Adriana Harris CLINICAL SPECIALIST VASCULAR 01/26/2011 Office visit Judith Whitaker MD 01/24/2011 [...]
--- OUTSIDE RECORDS SUMMARY | 2018-07-23 19:54 | XMS REPORT ---
Author Author Adriana Harris [facility] Address [address] [place] [id number] Care Team Providers Care Railroad Signal Technician Name Role Phone Adriana Harris PCP Unavailable [...] BY ORAL ROUTE ONCE DAILY AT BEDTIME Lipitor 20 mg oral tablet 07/04/2016 TAKE 1 TABLET (20 MG) BY ORAL ROUTE ONCE DAILY AT BEDTIME Hyzaar 50-12.5 mg oral tablet 07/04/2016 TAKE 1 TABLET BY ORAL ROUTE ONCE DAILY FOR 30 DAYS phentermine 37.5 mg oral tablet 08/10/2016 take 1 tablet (37.5 mg) by oral route once daily before breakfast hydrocodone-acetaminophen 5-325 mg oral tablet 08/10/2016 take 1 tablet by oral route every [...] HC BMI BSA BMI Percentile O2 Sat(%) 08/10/2016 2:39:00 PM 126 mmHg 64 mmHg [...] 0.17 #BASO 0.03 MANUAL DIFF NOT IND History Of Immunizations Not available. History of [...] Other chronic pain Aug 10 2016 2:41PM Payers Insurance Name Company Name Plan Name Plan Number Policy Number Policy Group Number Start Date [facility] [id number] Friday, 2008 HealthScope Benefits HealthScope Benefits [id number] Tuesday, 2009 [facility] Self Insurance Fund [facility] Self Insurance Fund [id number] N/ A [employer] [facility] [employer] [id number] N/A Comp [place] [id number] N/A History of Encounters Visit Date Visit Type Provider 08/10/2016 Office visit Adriana Harris APRN 07/08/2016 Office visit Adriana Harris APRN 04/12/2016 Office visit Adriana Harris APRN 03/29/2016 Office visit Adriana Harris APRN 03/10/2016 Office visit Adriana Harris APRN 02/12/2016 [facility] Al Junior MD 01/27/2016 Office visit Al Junior MD 01/27/2016 Office visit 01/27/2016 Office visit Adriana Harris APRN 01/07/2016 Office visit Adriana Harris APRN 06/29/2015 Office visit Adriana Harris APRN 02/03/2015 Office visit Adriana Harris APRN 01/05/2015 Office visit Adriana Harris APRN 09/15/2014 Hospital Mulu Logan MD 07/23/2014 Office visit Monika Bob HYDRAULIC PLUMBER 04/16/2014 Office visit Adriana Harris HYDRAULIC PLUMBER 11/15/2013 Office visit Patrick Montano HYDRAULIC PLUMBER 08/28/2013 Office visit Judith Whitaker MD 03/05/2013 Office visit Judith Whitaker MD 01/30/2013 Records Request Judith Whitaker MD 12/06/2012 Office visit Judith Whitaker MD 09/14/2012 Nurse visit Judith Whitaker MD 08/22/2012 Office visit Judith Whitaker MD 05/07/2012 Office visit Judith Whitaker MD 04/24/2012 Office visit Adriana Harris HYDRAULIC PLUMBER 01/10/2012 Office visit Judith Whitaker MD 12/02/2011 Office visit Adriana Harris HYDRAULIC PLUMBER 10/04/2011 Office visit Judith Whitaker MD 09/27/2011 Office visit Judith Whitaker MD 09/20/2011 Office visit Judith Whitaker MD 09/15/2011 Office visit Judith Whitaker MD 06/09/2011 Office visit Adriana Harris HYDRAULIC PLUMBER 01/26/2011 Office visit Judith Whitaker MD 01/24/2011 Nurse visit Judith Whitaker MD 01/13/2011 Office visit Judith Whitaker MD 04/26/2010 Office visit Magdy Blair DO 04/21/2010 Laboratory Neto Downs MD 04/21/2010 Laboratory Neto Downs MD 04/21/2010 [facility] Neto Downs MD 01/28/2010 Office visit Magdy Blair DO 01/07/2010 Office visit Magdy Blair DO 01/01/2010 Office visit Amber HANNA 11/10/2009 Office visit Magdy Blair DO 08/13/2009 Office visit Judith Whitaker MD 08/13/2009 Laboratory Judith Whitaker MD
--- OUTSIDE RECORDS SUMMARY | 2018-07-23 19:58 | XMS REPORT | CCD ---
Author Author KWAKU MAJOR Organization Unknown Address [address] [place] [id number] Care Team Providers Care Engineering Project Designer Name Role Phone ADRIEN KEENE, SIRIA Mackenzie Attphydick ADRIEN KEENE, SIRIA Schaeffer Vital Signs Unknown. Allergies Allergy Code Allergy Type Reaction Status CODEINE 2670 Drug allergy (disorder) HIVES Active Procedures Unknown. History of Immunizations Unknown. Problems Unknown. Results URINALYSIS C&S IF IND Test Name Code Test Result Test Units Test Date/ Time COLOR YELLOW N/A 03/16/2014 14:10 APPEARANCE CLEAR N/A 03/16/2014 14:10 SPEC GRAV 1.015 N/A 03/16/2014 14:10 pH 8.5 N/A 03/16/2014 14:10 PROTEIN NEGATIVE N/A 03/16/2014 14:10 GLUCOSE NEGATIVE N/A 03/16/2014 14:10 KETONE NEGATIVE N/A 03/16/2014 14:10 BILIRUBIN NEGATIVE N/A 03/16/2014 14:10 BLOOD NEGATIVE N/A 03/16/2014 14:10 NITRITE NEGATIVE N/A 03/16/2014 14:10 LEUK SCREEN NEGATIVE N/A 03/16/2014 14:10 WBC/HPF RARE N/A 03/16/2014 14:10 RBC/HPF NEGATIVE N/A 03/16/2014 14:10 CASTS/LPF NEGATIVE N/A 03/16/2014 14:10 CRYSTALS TRACE AMORPH N/A 03/16/2014 14:10 MUCOUS THRDS NEGATIVE N/A 03/16/2014 14:10 BACTERIA FEW N/A 03/16/2014 14:10 EPITH CELLS FEW SQUAMOUS N/A 03/16/2014 14:10 TRICHOMONAS NEGATIVE N/A 03/16/2014 14:10 YEAST NEGATIVE N/A 03/16/2014 14:10 CULT SET UP? NO N/A 03/16/2014 14:10 Medications Unknown. Medications Administered Unknown. Encounters Encounter Diagnosis Diagnosis Code Start Date BACKACHE NOS 7245 03/16/2014 Social History Smoking Status Code Start Date End Date Never smoker [id number] Patient Decision Aids Unknown. Discharge Instructions You were admitted to [facility] on 03/16/2014 with a principle diagnosis of BACKACHE NOS. You were discharged from [facility] on 03/16/2014. Should you have any questions prior to discharge, please contact a member of your healthcare team. If you have left the hospital and have any questions, please contact your primary care physician. Chief Complaint and Reason For Visit Chief Complaint Date of Onset BACK PAIN VOMITING DIZZY Function Status Unknown. Referral/Transition of Care Unknown.
--- OUTSIDE RECORDS SUMMARY | 2018-07-23 19:58 | XMS REPORT | Continuity of Care Document ---
Author Author [facility] Address Unknown Phone Unavailable Allergies Active Description Code Type Severity Reaction Onset Reported/Identified Relationship to Patient Clinical Status Yes CODEINE [id number] DRUG N/A HIVES Yes No Known Drug Allergy Drug Allergy Unknown N/A 12/28/2016 Yes No Known Drug Category Allergy Drug Allergy Unknown N/A 12/28/2016 Yes No Known Environment Allergy Environmental Allergy Unknown N/A 12/28/2016 Yes No Known Food Allergy Food Allergy Unknown N/A 12/28/2016 Medications Medication Packaging Start Date Stop Date Route Dosage Sig Zorvolex 35 mg capsule Capsule 01/201712/28/2016 35 mg take 1 (one) Capsule by Oral route daily atorvastatin 20 mg tablet Blister 12/28/2016 20 mg take 1 (one) Tablet by Oral route daily NexIUM 40 mg capsule,delayed release Capsule 12/28/2016 12/28/2016 40 mg take 1 (one) by Oral route daily losartan 50 mg tablet Blister 12/2812/28/2016 50 mg take 1 (one) Tablet by Oral route daily Problems Date Dx Coded Attending Type Code Diagnosis Diagnosed By 12/30/2016 NIA GARCÍA N23 Unspecified renal colic NIA GARCÍA 12/30/2016 NIA GARCÍA R31.29 Other microscopic hematuria NIA GARCÍA 12/30/2016 NIA GARCÍA Z87.442 Personal history of urinary calculi NIA GARCÍA Procedures Code [place] [address] OFFICE OR OTHER OUTPATIENT VISIT FOR THE EVALUATION AND MANAGEMENT OF ANEW PATIENT, WHICH REQUIRES NIA HARTLEY 12/30/2016 24441 OFFICE OR OTHER OUTPATIENT VISIT FOR THE EVALUATION AND MANAGEMENT OF ANEW PATIENT, WHICH REQUIRES NIA HARTLEY 02/17/2017 Results There is no data. Encounters ACCT No. Visit Date/Time Discharge Status Pt. Type Provider Facility Loc./Unit Complaint [id number] 05/03/2017 09:20:13 05/03/2017 23:59:59 CLS Outpatient Walker, Adriana [id number] 02/09/2017 12:31:27 02/09/2017 23:59:59 CLS Outpatient Walker, Adriana [id number] 11/10/2016 09:20:30 11/10/2016 23:59:59 CLS Outpatient Walker, Adriana [id number] 08/10/2016 15:35:59 08/10/2016 23:59:59 CLS Outpatient Walker, Adriana [id number] 07/08/2016 09:48:57 07/08/2016 23:59:59 CLS Outpatient Walker, Adriana [id number] 04/12/2016 16:13:32 04/12/2016 23:59:59 CLS Outpatient Walker, Adriana [id number] 03/29/2016 15:17:07 03/29/2016 23:59:59 CLS Outpatient Walker, Adriana [id number] 06/29/2015 16:01:41 06/29/2015 23:59:59 CLS Outpatient Walker, Adriana [id number] 05/04/2015 21:26:01 05/04/2015 23:59:59 CLS Outpatient Walker, Adriana [id number] 01/05/2015 16:16:35 01/05/2015 23:59:59 CLS Outpatient Walker, Adriana [id number] 07/23/2014 09:51:14 07/23/2014 23:59:59 CLS Outpatient Monika Boble [id number] 04/16/2014 14:57:38 04/16/2014 23:59:59 CLS Outpatient Walker, Adriana [id number] 11/15/2013 19:20:14 11/15/2013 23:59:59 CLS Outpatient Patrick Montano [id number] 12/20/2017 11:40:00 12/20/2017 23:59:59 CLS Outpatient BLANCA BAUTISTA [facility] [place] [id number] 03/27/2018 11:45:42 Document Registration [id number] 03/27/2018 11:39:36 Document Registration [id number] 10/11/2017 11:18:50 Document Registration [id number] 01/12/2017 12:31:01 01/12/2017 23:59:59 CLS Outpatient NIA GARCÍA [id number] 05/05/2016 18:23:44 05/05/2016 18:23:44 Outpatient
== END 2018-07-23 17:42 | disposition home or self-care (01) ==
LOC: ER 15:38
DX: S30.0XXA Contusion of lower back and pelvis, initial encounter (principal); I10 Essential (primary) hypertension; K21.9 Gastro-esophageal reflux disease without esophagitis; R40.2142 Coma scale, eyes open, spontaneous, at arrival to emergency department; R40.2252 Coma scale, best verbal response, oriented, at arrival to emergency department; R40.2362 Coma scale, best motor response, obeys commands, at arrival to emergency department; Z90.710 Acquired absence of both cervix and uterus; V43.53XA Car driver injured in collision with pick-up truck in traffic accident, initial encounter
CPT/HCPCS: 70450; 72125; 72128; 72131